=== PATIENT | male | born 1955 | race Caucasian/White ===

== ENCOUNTER → 2024-05-24 | Outpatient (CLI) | payer MEDICARE, BC, SELFPAY ==
[2024-05-24 10:18] LABS: Collection Type, Urine Clean Catch
[2024-05-24 11:30] LABS: Basophils # (Auto) 0.1 Thou/mm3 (0.0-0.2); Basophils % (Auto) 1 % (0-2.5); Eosinophils # (Auto) 0.5 Thou/mm3 (0.0-0.5); Eosinophils % (Auto) 6 % (0-10); Hematocrit 35.6 % (41.0-53.0); Hemoglobin 11.8 g/dL (13.5-16.0); Immature Granulocytes % (Auto) 0 % (0-0); Immature Granulocytes Auto 0.03 Thou/mm3 (0.00-0.00); Lymphocytes # (Auto) 3.3 Thou/mm3 (1.0-4.8); Lymphocytes % (Auto) 40 % (10-50); Mean Corpuscular HGB Conc 33.1 g/dl (31.0-37.0); Mean Corpuscular Hemoglobin 30.1 pg (25.0-35.0); Mean Corpuscular Volume 91 fL (80-100); Monocytes # (Auto) 0.8 Thou/mm3 (0.0-0.8); Monocytes % (Auto) 10 % (0-12); Neutrophils # (Auto) 3.6 Thou/mm3 (1.8-7.7); Neutrophils % (Auto) 44 % (37-80); Nucleated Red Blood Cell % 0 /100 WBC (0); Platelet Count 165 Thou/mm3 (140-440); RDW Standard Deviation 48.1 fL (35.1-43.9); Red Blood Count 3.92 Miln/mm3 (4.50-5.90); White Blood Count 8.4 Thou/mm3 (3.8-10.6)
[2024-05-24 11:37] LABS: PSA Medicare Annual Scrn 0.24 ng/mL (0-4.00)
[2024-05-24 11:43] LABS: Alanine Aminotransferase 14 U/L (10-49); Albumin, Serum 4.6 gm/dL (3.4-4.8); Albumin/Globulin Ratio 1.7 (1.2-2.2); Alkaline Phosphatase 96 U/L (46-116); Anion Gap 11 (7-16); Aspartate Amino Transferase < 10 U/L (0-34); BUN/Creatinine Ratio 28 Ratio (12-20); Bacteria,Urine Rare; Bilirubin,Total 0.7 mg/dL (0.3-1.2); Bilirubin,Urine Negative (Negative); Blood Urea Nitrogen 72 mg/dL (9-23); Blood,Urine Negative (Negative); Calcium 10.2 mg/dL (8.3-10.6); Calcium (Corrected) 10.2 mg/dL (8.5-10.1); Carbon Dioxide 20.5 mMol/L (20.0-31.0); Cardiac Risk Estimate 3.1 RATIO (4.0-6.7); Chloride 105 mMol/L (98-107); Cholesterol 129 mg/dL (132-200); Clarity,Urine Clear (Clear/Hazy); Color,Urine Lt-Yellow (Lt Yel-Yel); Creatinine (Component) 2.6 mg/dL (0.6-1.3); Globulin 2.7 gm/dL (2.3-3.5); Glucose 111 mg/dL (74-106); Glucose, Urine Negative (Negative); HDL Cholesterol 42 mg/dL (40-60); Hyaline Casts,Urine < 1 /hpf (0-1); Ketones,Urine Negative (Negative); LDL Cholesterol,Calculated 71 mg/dL (0-130); Leukocyte Esterase,Urine Negative (Negative); Nitrite,Urine Negative (Negative); Osmolality,Calculated 294 (275-295); Potassium 4.7 mMol/L (3.4-5.1); Protein,Urine Trace (Neg - Trace); RBC,Urine 3 /hpf (0-3); Sodium 136 mMol/L (136-145); Specific Gravity,Urine 1.014 (1.001-1.035); Squamous Epithelial Cell,Urine 1 /hpf (0-5); Total Protein 7.3 gm/dL (5.7-8.2); Triglycerides 82 mg/dL (30-150); Urobilinogen,Urine Negative mg/dL (0.0-1.0); Vitamin B12 1444 pg/mL (211-911); Vitamin D 25 Hydroxy Total 32.7 ng/mL (7.3-40.2); WBC,Urine 1 /hpf (0-5); eGFR 26 See Note
[2024-05-24 12:00] LABS: Glucose Estimated Average 120 mg/dL (80-131); Hemoglobin A1C 5.8 % Hgb (4.8-6.0)
== END | disposition home or self-care (01) ==
LOC: COPL 10:10
PROVIDERS: PCP Internal Medicine; Referring Provider Internal Medicine; Visit Provider Internal Medicine
DX: Z00.00 Encounter for general adult medical examination without abnormal findings (principal); I10 Essential (primary) hypertension; E78.5 Hyperlipidemia, unspecified
CPT/HCPCS: 36415; 80053; 80061; 81001; 82306; 82607; 83036; 84153; 84443; 84550; 85025; G0103

== ENCOUNTER → 2024-11-22 | Outpatient (CLI) | payer MEDICARE, BC, SELFPAY ==
[2024-11-22 11:56] LABS: Collection Type, Urine Clean Catch
[2024-11-22 12:27] LABS: Basophils # (Auto) 0.1 Thou/mm3 (0.0-0.2); Basophils % (Auto) 1 % (0-2.5); Eosinophils # (Auto) 0.4 Thou/mm3 (0.0-0.5); Eosinophils % (Auto) 4 % (0-10); Hematocrit 30.1 % (41.0-53.0); Hemoglobin 9.8 g/dL (13.5-16.0); Immature Granulocytes % (Auto) 0 % (0-0); Immature Granulocytes Auto 0.02 Thou/mm3 (0.00-0.00); Lymphocytes % (Auto) 50 % (10-50); Mean Corpuscular HGB Conc 32.6 g/dl (31.0-37.0); Mean Corpuscular Hemoglobin 29.9 pg (25.0-35.0); Mean Corpuscular Volume 92 fL (80-100); Monocytes # (Auto) 0.7 Thou/mm3 (0.0-0.8); Monocytes % (Auto) 9 % (0-12); Neutrophils # (Auto) 2.9 Thou/mm3 (1.8-7.7); Neutrophils % (Auto) 36 % (37-80); Nucleated Red Blood Cell % 0 /100 WBC (0); Platelet Count 187 Thou/mm3 (140-440); RDW Standard Deviation 47.6 fL (35.1-43.9); Red Blood Count 3.28 Miln/mm3 (4.50-5.90); White Blood Count 8.1 Thou/mm3 (3.8-10.6)
[2024-11-22 12:29] LABS: Bilirubin,Urine Negative (Negative); Blood,Urine 1+ (Negative); Clarity,Urine Clear (Clear/Hazy); Color,Urine Lt-Yellow (Lt Yel-Yel); Glucose, Urine Negative (Negative); Ketones,Urine Negative (Negative); Leukocyte Esterase,Urine Negative (Negative); Nitrite,Urine Negative (Negative); Protein,Urine 1+ (Neg - Trace); RBC,Urine 4 /hpf (0-3); Specific Gravity,Urine 1.016 (1.001-1.035); Squamous Epithelial Cell,Urine 2 /hpf (0-5); Urobilinogen,Urine Negative mg/dL (0.0-1.0); WBC,Urine < 1 /hpf (0-5)
[2024-11-22 12:41] LABS: Glucose Estimated Average 108 mg/dL (80-131); Hemoglobin A1C 5.4 % Hgb (4.8-6.0)
[2024-11-22 12:44] LABS: Alanine Aminotransferase 11 U/L (10-49); Albumin, Serum 4.1 gm/dL (3.4-4.8); Albumin/Globulin Ratio 1.6 (1.2-2.2); Alkaline Phosphatase 96 U/L (46-116); Anion Gap 10 (7-16); Aspartate Amino Transferase 15 U/L (0-34); BUN/Creatinine Ratio 18 Ratio (12-20); Bilirubin,Total 0.4 mg/dL (0.3-1.2); Blood Urea Nitrogen 46 mg/dL (9-23); Calcium 8.4 mg/dL (8.3-10.6); Calcium (Corrected) 8.4 mg/dL (8.5-10.1); Carbon Dioxide 20.3 mMol/L (20.0-31.0); Chloride 109 mMol/L (98-107); Cholesterol 108 mg/dL (132-200); Creatinine (Component) 2.6 mg/dL (0.6-1.3); Globulin 2.6 gm/dL (2.3-3.5); Glucose 94 mg/dL (74-106); HDL Cholesterol 36 mg/dL (40-60); LDL Cholesterol,Calculated 59 mg/dL (0-130); Osmolality,Calculated 289 (275-295); Potassium 5.2 mMol/L (3.4-5.1); Sodium 139 mMol/L (136-145); Thyroid Stimulating Hormone 3.38 uIU/mL (0.55-4.78); Total Protein 6.7 gm/dL (5.7-8.2); Triglycerides 66 mg/dL (30-150); Uric Acid 8.1 mg/dL (3.7-9.2); eGFR 26 See Note
[2024-11-22 13:00] LABS: Vitamin B12 895 pg/mL (211-911); Vitamin D 25 Hydroxy Total 31.4 ng/mL (7.3-40.2)
== END | disposition home or self-care (01) ==
PROVIDERS: PCP Internal Medicine; Referring Provider Internal Medicine; Visit Provider Internal Medicine
DX: Z00.00 Encounter for general adult medical examination without abnormal findings (principal); I10 Essential (primary) hypertension; E78.5 Hyperlipidemia, unspecified; D51.9 Vitamin B12 deficiency anemia, unspecified; E55.9 Vitamin D deficiency, unspecified; Z12.5 Encounter for screening for malignant neoplasm of prostate
CPT/HCPCS: 36415; 80053; 80061; 81001; 82306; 82607; 83036; 84153; 84443; 84550; 85025; G0103

== ENCOUNTER 2025-05-05 13:18 | Inpatient (IN) | payer MEDICARE, BC, SELFPAY ==
[2025-05-05] VITALS (34 sets, daily range): BP systolic 94–162; BP diastolic 28–76; PULSE 37–93; RESP 11–22; TEMP 31.1–36.6; O2SAT 97–100; BMI 40.6
--- NOTE | 2025-05-05 14:43 | XR_ITS ---
EXAMINATION: AP chest single view TECHNIQUE: Semiupright AP chest portable single view Date and time: May 05, 2025, 1511 hours, comparison November 14, 2023 INDICATIONS: Coughing fever today. FINDINGS: Early pneumonia left base obscuring detail left hemidiaphragm Mild enlargement cardiac contour Median sternotomy wires Moderate vascular congestion Prominent osteopenia IMPRESSION: Early pneumonia left base
--- NOTE | 2025-05-05 14:43 | EKG_ITS ---
[facility] Test Date: 2025-05-05 Pat Name: HAMILTON DELGADO Department: Room: - Gender: Male Clerk: : 1955 Requested By: Marek Fried Order Number: [id number] Reading MD: Marek Fried Measurements Intervals [place] Rate: 38 P: [place]: QRS: -40 QRSD: 144 T: 5 QT: 621 QTc: 496 Interpretive Statements UNCERTAIN REGULAR RHYTHM LEFT AXIS DEVIATION [QRS AXIS < -30] INTRAVENTRICULAR CONDUCTION DELAY [130+ ms QRS DURATION] PROLONGED QT INTERVAL CRITICAL TEST RESULT Compared to ECG 11/14/2023 12:40:02 Intraventricular conduction delay now present Prolonged QT interval now present Sinus rhythm no longer present First degree AV block no longer present T-wave abnormality no longer present /store/S0/[id number].pdf
[2025-05-05] MEDS: DEXTROSE 50%-WATER INJ 50 ML SYRINGE IVP ×2 (14:56→18:19)
[2025-05-05] MEDS: DEXTROSE 10%-WATER 1,000 ML 50 ML IV (15:07)
[2025-05-05 15:20] LABS: Basophils # (Auto) 0.0 Thou/mm3 (0.0-0.2); Basophils % (Auto) 1 % (0-2.5); Eosinophils # (Auto) 0.1 Thou/mm3 (0.0-0.5); Eosinophils % (Auto) 2 % (0-10); Hematocrit 33.1 % (41.0-53.0); Hemoglobin 10.3 g/dL (13.5-16.0); Immature Granulocytes Auto 0.11 Thou/mm3 (0.00-0.00); Lymphocytes # (Auto) 2.4 Thou/mm3 (1.0-4.8); Lymphocytes % (Auto) 34 % (10-50); Mean Corpuscular HGB Conc 31.1 g/dl (31.0-37.0); Mean Corpuscular Hemoglobin 30.9 pg (25.0-35.0); Mean Corpuscular Volume 99 fL (80-100); Monocytes # (Auto) 0.5 Thou/mm3 (0.0-0.8); Monocytes % (Auto) 7 % (0-12); Neutrophils # (Auto) 3.8 Thou/mm3 (1.8-7.7); Neutrophils % (Auto) 55 % (37-80); Nucleated Red Blood Cell # 0.04 Thou/mm3 (0.00-0.00); Nucleated Red Blood Cell % 1 /100 WBC (0); Platelet Count 82 Thou/mm3 (140-440); RDW Standard Deviation 59.3 fL (35.1-43.9); Red Blood Count 3.33 Miln/mm3 (4.50-5.90); White Blood Count 7.0 Thou/mm3 (3.8-10.6)
[2025-05-05 15:53] LABS: INR 1.2 (0.9-1.3); Prothrombin Time 12.2 Seconds (9.0-12.2)
--- NOTE | 2025-05-05 16:16 | EDNOTE_ITS ---
<Statement entered by Marek Montana MD - 05/10/25 16:12> As co-signing physician, I was present and available for consult prn. I concur with the plan and care as documented by the midlevel provider. ED General RME/HPI General Chief complaint: General Adult/Misc Complain Stated complaint: HYPOGLYCEMIA Time Seen by Provider: 05/05/25 13:53 Arrival date/time: 05/05/25 13:18 Limitations: no limitations RME / HPI RME / HPI narrative: 69 year old male with history of HFpEF (EF 55% 11/2023), atrial fibrillation on Eliquis, CAD s/p CABG, hypertension, diabetes, hyperlipidemia, CKD, DVT LLE, ischemic colitis s/p colostomy at [facility] presents to the ED BIBA from home for hypoglycemia today. Patient reports decreased oral intake and last night only had a handful of cranberries for dinner and did not eat breakfast this morning. Denies giving himself his insulin today. Per medics, BG on the field was 59 and given D10. Related Data Home Medications ?Medication ?Instructions ?Recorded ?Confirmed fexofenadine 180 mg tablet 180 mg PO QPM #0 tabs 03/2111/08/23 (Tonia Allergy) linagliptin 5 mg tablet (Tradjenta) 5 mg PO QPM ##0 11/08/23 coenzyme Q10 100 mg capsule 100 mg PO QPM 05/16/2001/23 (CoQ-10) febuxostat 40 mg tablet (Uloric) 40 mg PO QPM 05/16/20 11/08/23 insulin degludec 100 50 unit subcut QDAY 05/16/20 11/08/23 unit-liraglutide 3.6 mg/mL(3 mL) subcutaneous pen (Xultophy 100/3.6) amiodarone 200 mg tablet 200 mg PO DAILY 11/08/2301/23 cyclobenzaprine 5 mg tablet 5 mg PO QPM muscle spasms 11/08/23 11/08/23 ferrous sulfate 325 mg (65 mg 325 mg PO DAILY 11/08/23 11/08/23 iron) tablet Previous Rx's ?Medication ?Instructions ?Recorded cyclobenzaprine 5 mg tablet 5 mg PO TID PRN muscle spa sm #14 07/10/22 tabs apixaban 2.5 mg tablet (Eliquis) 5 mg (2 x 2.5 mg) PO BID #60 tabs 12/25/22 calcitriol 0.25 mcg capsule 0.5 mcg (2 x 0.25 mcg) PO QDAY #60 12/25/22 caps rosuvastatin 5 mg tablet 5 mg PO QPM #30 tabs 3 sacubitril 24 mg-valsartan 26 mg 1 tab PO BID #60 tabs 12/25/22 tablet (Entresto) Held on 11/15/23. Instructions: Resume on 11/29/23. hold until follow up with Dr. Vines vitamin B complex-vitamin C-folic 1 tab PO QDAY #30 ta bs 12/25/22 acid 0.8 mg tablet (Nephro-Yola) hydroxyzine HCl 25 mg tablet 25 mg PO BID #1 tab 09/01 sevelamer carbonate 800 mg tablet 800 mg PO TIDWM #1 t ab 09/02/23 amlodipine 5 mg tablet 5 mg PO QDAY #30 tabs Allergies Allergy/AdvReac Type Severity Reaction Status Date / Time fentanyl Allergy Intermediate Rash Verified 05/05/25 13:19 Review of Systems Review of Systems Systems Reviewed: All systems reviewed, normal except as documented Past Medical History Past Medical History CARDIAC: Positive Cardiac Disorders, Myocardial Infarction, Atrial Fibrillation, Coronary Artery Disease, Atherosclerotic Heart Disease, Hypercholesterolemia, Congestive Heart Failure and Hypertension RESPIRATORY: Positive Bronchitis and Pneumonia GASTROINTESTINAL: Positive Gastrointestinal Disorders, Gastrointestinal Bleed and Colitis GENITOURINARY: Positive Genitourinary Disorders and Renal Disease MUSCULOSKELETAL: Positive Musculoskeletal Disorders, Arthritis and Gout ENT: Positive Cataracts ENDOCRINE: Positive Endocrine Disorders and Diabetes Mellitus Type 2 HEMATOLOGIC: Positive Anemia and Clotting Problems (dvt lle) OTHER HISTORY: Positive Hospitalization, Falls, Blood Transfusions, Chicken Pox, Measles and Mumps Family History FAMILY HISTORY: Positive Family Cardiac Disorders Surgical History SURGICAL: Positive Cardiac Surgery, Open Heart Surgery, Coronary Artery Bypass Graft, Cardiac Catheterization, Angiogram, Tonsillectomy, Abdominal Surgery, Bowel Surgery (colectomy) and Amputation Social History SMOKING STATUS: Never smoker SECOND HAND EXPOSURE: No SUBSTANCE USE: does not use ED Exam General Limitations: Present no limitations General appearance: Present alert, in no apparent distress and obese Head Head exam: Present atraumatic Eye Eye exam: Present normal appearance, PERRL and EOMI ENT ENT exam: Present normal exam, normal oropharynx and mucous membranes moist Neck Neck exam: Present normal inspection, full ROM and trachea midline Chest Chest inspection: Present normal inspection and symmetric chest wall rise Respiratory Respiratory exam: Present normal lung sounds bilaterally Cardiovascular Cardiovascular exam: Present normal rhythm, bradycardia and other (distant heart sounds) Abdominal Exam Abdominal exam: Present soft and normal bowel sounds Extremities Exam Extremities exam: Present full ROM and other (2+ edema bilateral lower extremities, lerft anterior lower extremity with venuos dermatitis) Back Exam Back exam: Present normal inspection and full ROM Neurological Exam Neurological exam: Present alert, oriented X3 and CN II-XII intact Psychiatric Psychiatric exam: Present normal affect and normal mood Skin Skin exam: Present warm, dry, intact and normal color Course Quality Measures none Orders Category Date Time Status Admit to Inpatient Status Routine Admission 05/05/25 19:25 Active Patient Condition Routine Admission 05/05/25 19:24 Ordered COVID-19 Screening Questionnaire NOW Care 05/05/25 17:58 Active Saddle Stitch Operator NOW Care 05/05/25 14:43 Active Continuous Pulse Oximetry NOW Care 05/05/25 14:43 Completed Decision to Admit X1 Care 05/05/25 17:58 Completed EKG (ED ONLY) *Do not use* NOW Care 05/05/25 14:43 Completed Initiate Warming Therapy X1 Care 05/05/25 15:45 Active Insert IV NOW Care 05/05/25 14:43 Active Notify provider NEEDED Care 05/05/25 19:24 Active EKG (ED Only) Stat Exams 05/05/25 14:43 Draft XR chest 1V portable Stat Exams 05/05/25 14:43 Completed Blood Culture (Lab) Stat Lab 05/05/25 17:55 Received CBC AM DRAW Lab 05/06/25 04:35 Completed CBC AM DRAW Lab 05/07/25 05:00 Ordered CBC AM DRAW Lab 05/08/25 05:00 Ordered CBC AM DRAW Lab 05/09/25 05:00 Ordered CBC AM DRAW Lab 05/10/25 05:00 Ordered CBC Stat Lab 05/05/25 15:05 Completed COVID-19 Antigen (In-House) Stat Lab 05/05/25 19:19 Completed Comprehensive Metabolic Panel AM DRAW Lab 05/06/25 04:35 Completed Comprehensive Metabolic Panel AM DRAW Lab 05/07/25 05:00 Ordered Comprehensive Metabolic Panel AM DRAW Lab 05/08/25 05:00 Ordered Comprehensive Metabolic Panel AM DRAW Lab 05/09/25 05:00 Ordered Comprehensive Metabolic Panel AM DRAW Lab 05/10/25 05:00 Ordered Comprehensive Metabolic Panel Stat Lab 05/05/25 16:52 Completed Lactic Acid [Lactate (Lactic Acid)] Stat Lab 05/05/25 17:55 Completed Lipid Panel AM DRAW Lab 05/06/25 04:35 Completed Magnesium AM DRAW Lab 05/06/25 04:35 Completed Prothrombin Time with INR Stat Lab 05/05/25 15:05 Completed Renal Function Panel Stat Lab 05/05/25 20:37 Completed Troponin I Stat Lab 05/05/25 16:52 Completed Urinalysis Stat Lab 05/05/25 20:26 Completed VBG [Venous Blood Gas] Stat Lab 05/05/25 20:37 Completed ALBUTEROL RT 0.5ml [Proventil Rt 0.5ml] Med 05/05/25 18:08 Discontinued 10 mg INH X1 ONE ALBUTEROL RT 0.5ml [Proventil Rt 0.5ml] Med 05/05/25 17:27 Discontinued 5 mg INH X1 ONE Acetaminophen Supp [Tylenol Supp] Med 05/05/25 19:24 Discontinued 650 mg MO Q6HR PRN Acetaminophen Tab [Tylenol Tab] Med 05/05/25 19:24 Active 650 mg PO Q6H PRN Amiodarone [Cordarone] Med 05/06/25 09:00 Active 200 mg PO DAILY Apixaban [Eliquis] Med 05/06/25 09:00 Discontinued 2.5 mg PO BID Calcium Chloride 10% Abboject 10 ml Med 05/05/25 17:22 Discontinued Dextrose 5%-Water [D5w] 100 ml IV X1 Dextrose 10%-Water 1000 ml [D10w 1000 ml] 1,000 ml Med 05/05/25 14:50 Discontinued IV 50 mls/hr Dextrose 10%-Water [D10w] 1,000 ml Med 05/05/25 15:15 Discontinued IV 50 mls/hr Dextrose 50% Syr [D50w Syringe Abboject] Med 05/05/25 14:49 Discontinued 50 ml IVP X1 ONE Dextrose 50% Syr [D50w Syringe Abboject] Med 05/05/25 17:22 Discontinued 50 ml IVP X1 ONE Doxycycline Inj [Vibramycin Inj] 100 mg Med 05/05/25 21:00 Discontinued Sodium Chloride 0.9% (Pop) [NS 0.9% mini bag] 100 ml IV BID Insulin Regular Med 05/05/25 17:22 Discontinued 8 unit IV X1 ONE Sod Polystyrene Sulfon Susp [Kayexalate Susp] Med 05/05/25 18:08 Discontinued 15 gm PO X1 ONE Sodium Bicarb 8.4% 50ml Vial* Med 05/05/25 17:22 Discontinued 50 meq IV X1 ONE Sodium Chloride Rt Apryl 0.9% [NS Rt Apryl 0.9%] Med 05/05/25 17:27 Discontinued 3 ml INH PRN PRN Sodium Chloride Rt Apryl 0.9% [NS Rt Apryl 0.9%] Med 05/05/25 18:08 Active 3 ml INH PRN PRN amLODIPine BESYLATE [Norvasc] Med 05/06/25 09:00 Active 5 mg PO DAILY cefTRIAXone [Rocephin] 2 gm Med 05/05/25 17:27 Discontinued SODIUM CHLORIDE 0.9% (Popper) [Ns 0.9% (P)] 50 ml IV X1 Code Status Routine Oth 05/05/25 19:24 Ordered Vital Signs Vital signs: Vital Signs Pulse Rate 40 L 05/05/25 13:37 Respiratory Rate 12 05/05/25 13:37 Blood Pressure 162/70 H 05/05/25 13:37 Pulse Oximetry (%) 98 05/05/25 13:37 Pulse ox is 100% on room air which is adequate. Critical Care Time Critical Care Time Critical Care Time: Yes Total Critical Care Time (min.): 45 Attestation: The high probability of sudden, clinically significant deterioration in the patient's condition required the highest level of my preparedness to intervene urgently. The services I provided to this patient were to treat and/or prevent clinically significant deterioration. Services included the following: chart data review, reviewing nursing notes and/or old charts, documentation time, market research consultant collaboration regarding findings and treatment options, medication orders and management, direct patient care, vital sign assessments and ordering, interpreting and reviewing diagnostic studies and lab tests. Aggregate critical care time includes only time during which I was engaged in work directly related to the patient's care, as described above, whether at bedside or elsewhere in the Emergency Department. It did not include time spent performing other reported procedures or the services of residents, students, nurses or physician assistants. Discharge Plan Plan Patient Disposition: Admit Acute Care w/in Hospital Problem List Clinical Impression: Hypoglycemia, Diabetes, Pneumonia, Acute hyperkalemia, History of chronic renal failure MDM Narrative MDM hospital course (for use when minimal MDM required): I, Aparna Mancilla, am scribing for and in the presence of Dr. Montana. A sepsis alert was not activated, there is no source of infection. The hypothermia is most likely due to the hypoglycemia. 1735p: I spoke with hospitalist team for admission. Discussed patients PMHx, HPI, ED course, exam findings, labs, and radiology results. Advised we consult with patients PCP Dr. Vines for admission. 1740p: I spoke with patients PCP Dr. Vines. Discussed patients PMHx, HPI, ED course, exam findings, labs, and radiology results. She accepts the patient for admission. 1745p: Dr. Vines recommending admission to the ICU. States she has consulted with safety and security officer Dr. Ta. Clinical Information Provided by: patient Medical Records reviewed [facility] Meds/Rx considered, not ordered None Labs/Rad/Tests considered, not ordered None Chronic Illness/Social Conditions which may negatively complicate care or outcome(s)-explain: CHF/CAD/Cardiac illness EKG Interpretation EKG #1: EKG Interpretation: EKG @ 14:58p, sinus bradycardia with first degree AV block, left axis deviation, no STEMI. Labs Lab(s) Interpretation(s): Potassium 6.9 Imaging Imaging Interpretation(s): Ordering Physician: Marek Montana MD Date of Service: 05/05/25 Procedure(s): XR chest 1V portable Accession Number(s): [id number] cc: Marek Montana MD; Steven Glover MD~ EXAMINATION: AP chest single view TECHNIQUE: Semiupright AP chest portable single view Date and time: May 05, 2025, 1511 hours, comparison November 14, 2023 INDICATIONS: Coughing fever today. FINDINGS: Early pneumonia left base obscuring detail left hemidiaphragm Mild enlargement cardiac contour Median sternotomy wires Moderate vascular congestion Prominent osteopenia IMPRESSION: Early pneumonia left base Dictated By: Steven Glover MD Signed By: <Electronically signed by Steven Glover MD in OV> 05/05/25 1536 Medication Administration(s) Medication Administration History Acetaminophen (Acetaminophen 325 Mg Tablet) 650 mg PO Q6H PRN PRN Reason: Fever >101.5 Stop: 06/04/25 19:23 Amiodarone HCl (Amiodarone Hcl 200 Mg Tablet) 200 mg PO DAILY CINDI Stop: 06/05/25 08:59 Last Admin: 05/06/25 08:43 Dose: 200 mg Documented By: MGD Amlodipine Besylate (Amlodipine Besylate 5 Mg Tablet) 5 mg PO DAILY CINDI Stop: 06/05/25 08:59 Last Admin: 05/06/25 08:46 Dose: 5 mg Documented By: MGD Atorvastatin Calcium (Atorvastatin Calcium 10 Mg Tablet) 10 mg PO HS CINDI Stop: 06/05/25 20:59 Balsam Madhuri/Mentone Oil (Balsam Madhuri/Mentone Oil (Venelex) 60 Gm Tube) 0 gm TOP BID CINDI Stop: 06/05/25 09:59 Calcitriol (Calcitriol 0.25 Mcg Capsule) 0.5 mcg PO QDAY CINDI Stop: 06/05/25 08:59 Last Admin: 05/06/25 08:48 Dose: 0.5 mcg Documented By: MGD Clotrimazole (Clotrimazole Cr 1% 30 Gm Tube) 0 gm TOP BID CINDI Stop: 06/05/25 09:59 Ferrous Sulfate (Ferrous Sulf 325 Mg Tablet) 325 mg PO QDAY CINDI Stop: 06/05/25 08:59 Last Admin: 05/06/25 08:43 Dose: 325 mg Documented By: MGD Heparin Sodium (Porcine) (Heparin Sod Inj 5000 Unit/Ml Vial) 5,000 unit SC Q8HR CINDI Stop: 05/20/25 13:59 Ceftriaxone Sodium/Dextrose (Rocephin/D5w 1gm Iv Premix) 1 gm in 50 mls @ 100 mls/hr IV QDAY CINDI Stop: 05/13/25 09:34 Last Admin: 05/06/25 09:52 Dose: 100 mls/hr Documented By: MGD Influenza Virus Vaccine Quadrival (Influenza Virus 0.5 Ml Syringe ) 0.5 ml IMi .ONCE ONE Stop: 05/08/25 09:01 Sevelamer Carbonate (Sevelamer Carbonate 800 Mg Tablet) 800 mg PO TIDWM [facility] Stop: 06/05/25 07:59 Last Admin: 05/06/25 13:40 Dose: 800 mg Documented By: Admin: 05/06/25 08:43 Dose: 800 mg Documented By: PIO Sodium Chloride (Sodium Chloride Rt Apryl 0.9% 3 Ml Nebu) 3 ml INH PRN PRN PRN Reason: SOLN Stop: 06/04/25 18:07 Last Admin: 05/06/25 06:47 Dose: 3 ml Documented By: LUCERO Vitamin B Complex/Vit C/Folic Acid (Vit B12/Vit C/Fa (Nephrovite) Tablet) 1 tab PO QDAY [facility] Stop: 06/05/25 08:59 Last Admin: 05/06/25 08:43 Dose: 1 tab Documented By: PIO Discontinued Medications Acetaminophen (Acetaminophen Supp 650 Mg Supp) 650 mg MO Q6HR PRN PRN Reason: Fever > 100.4 Stop: 06/04/25 19:23 Albuterol (Albuterol Rt 2.5 Mg/0.5 Ml Nebu) 5 mg INH X1 ONE Stop: 05/05/25 17:28 Last Admin: 05/05/25 18:07 Dose: 5 mg Documented By: JENNIFER Albuterol (Albuterol Rt 2.5 Mg/0.5 Ml Nebu) 10 mg INH X1 ONE Stop: 05/05/25 18:09 Last Admin: 05/05/25 18:57 Dose: 10 mg Documented By: JENNIFER Albuterol (Albuterol Rt 2.5 Mg/3 Ml Nebu) 10 mg INH X1 ONE Stop: 05/06/25 06:16 Albuterol (Albuterol Rt 2.5 Mg/0.5 Ml Nebu) 10 mg INH X1 ONE Stop: 05/06/25 06:41 Last Admin: 05/06/25 06:47 Dose: 10 mg Documented By: LUCERO Apixaban (Apixaban 2.5 Mg Tablet) 2.5 mg PO BID [facility] Stop: 06/05/25 08:59 Dextrose (Dextrose 50%-Water Inj 50 Ml Syringe) 50 ml IVP X1 ONE Stop: 05/05/25 14:50 Last Admin: 05/05/25 14:56 Dose: 50 ml Documented By: ANN Dextrose (Dextrose 50%-Water Inj 50 Ml Syringe) 50 ml IVP X1 ONE Stop: 05/05/25 17:23 Last Admin: 05/05/25 18:19 Dose: 50 ml Documented By: FORTINO Dextrose (Dextrose 50%-Water Inj 50 Ml Syringe) 50 ml IVP X1 ONE Stop: 05/06/25 06:22 Last Admin: 05/06/25 07:45 Dose: 50 ml Documented By: MGEdinson Dextrose (Dextrose 50%-Water Inj 50 Ml Syringe) 50 ml IVP X1 ONE Stop: 05/06/25 06:23 Dextrose (Dextrose 50%-Water Inj 50 Ml Syringe) 50 ml IVP X1 ONE Stop: 05/06/25 07:32 Last Admin: 05/06/25 07:50 Dose: 50 ml Documented By: PIO Hydrocortisone Sodium Succinate (Hydrocortisone Sod Succ Inj 100 Mg 2 Ml Vial) 200 mg IV X1 ONE Stop: 05/05/25 22:29 Last Admin: 05/05/25 23:17 Dose: 200 mg Documented By: ESTEPHANIA Hydrocortisone Sodium Succinate (Hydrocortisone Sod Succ Inj 100 Mg 2 Ml Vial) 100 mg IV Q6HR CINDI Stop: 06/05/25 04:59 Last Admin: 05/06/25 05:41 Dose: Not Given Documented By: ESTEPHANIA Non-Admin Reason: Duplicate Medication on eMAR Admin: 05/06/25 05:39 Dose: 100 mg Documented By: ESTEPHANIA Dextrose (D10w 1000 Ml) 1,000 mls @ 50 mls/hr IV .Q20H CINDI Stop: 05/06/25 10:49 Last Admin: 05/05/25 15:55 Dose: Not Given Documented By: FORTINO Non-Admin Reason: Discontinued Dextrose (D10w) 1,000 mls @ 50 mls/hr IV .Q20H CINDI Stop: 05/06/25 11:14 Last Admin: 05/05/25 15:07 Dose: 50 mls/hr Documented By: AA Co-signed By: GM Calcium Chloride 10 ml/ (Dextrose) 110 mls @ 110 mls/hr IV X1 ONE Stop: 05/05/25 18:21 Last Infusion: 05/05/25 19:15 Dose: Infused Documented By: MARIA D Admin: 05/05/25 18:16 Dose: 110 mls/hr Documented By: FORTINO Ceftriaxone Sodium 2 gm/ (Sodium Chloride) 50 mls @ 100 mls/hr IV X1 ONE Stop: 05/05/25 17:56 Last Infusion: 05/05/25 18:58 Dose: Infused Documented By: MARIA D Admin: 05/05/25 18:23 Dose: 100 mls/hr Documented By: FORTINO Doxycycline Hyclate 100 mg/ (Sodium Chloride) 100 mls @ 100 mls/hr IV BID [facility] Stop: 05/12/25 20:59 Last Infusion: 05/05/25 21:10 Dose: Infused Documented By: Admin: 05/05/25 20:08 Dose: 100 mls/hr Documented By: MARI AD Dextrose (D10w) 1,000 mls @ 75 mls/hr IV .[id number] [facility] Stop: 05/06/25 11:47 Last Admin: 05/05/25 23:27 Dose: 75 mls/hr Documented By: ESTEPHANIA Co-signed By: FUENTES Ceftriaxone Sodium/Dextrose (Rocephin/D5w 1gm Iv Premix) 1 gm in 50 mls @ 100 mls/hr IV QDAY [facility] Stop: 05/12/25 22:45 Last Admin: 05/06/25 04:27 Dose: Not Given Documented By: ESTEPHANIA Non-Admin Reason: Discontinued Dextrose (D5w) 500 mls @ 150 mls/hr IV .Q3H20M [facility] Stop: 06/05/25 02:59 Last Admin: 05/06/25 04:25 Dose: Not Given Documented By: ESTEPHANIA Non-Admin Reason: Discontinued Dextrose (D5w) 500 mls @ 125 mls/hr IV .Q4H [facility] Stop: 06/05/25 03:03 Last Admin: 05/06/25 03:05 Dose: 125 mls/hr Documented By: ESTEPHANIA Calcium Gluconate/Sodium Chloride (Calcium Gluc/Ns 1000mg Ivpb) 1,000 mg in 50 mls @ 50 mls/hr IV X1 ONE Stop: 05/06/25 09:17 Last Admin: 05/06/25 08:30 Dose: 50 mls/hr Documented By: PIO Insulin Human Regular (Insulin Hum Regular 1 Unit/0.01 Ml (Per Unit)) 8 unit IV X1 ONE Stop: 05/05/25 17:23 Last Admin: 05/05/25 18:20 Dose: 8 unit Documented By: FORTINO Co-signed By: NELIDA Insulin Human Regular (Insulin Hum Regular 1 Unit/0.01 Ml (Per Unit)) 5 unit IV X1 ONE Stop: 05/06/25 06:16 Last Admin: 05/06/25 07:40 Dose: 5 unit Documented By: MGEdinson Co-signed By: PIO(2) Insulin Human Regular (Insulin Hum Regular 1 Unit/0.01 Ml (Per Unit)) 5 unit IV X1 ONE Stop: 05/06/25 10:00 Last Admin: 05/06/25 10:25 Dose: 5 unit Documented By: MGEdinson Co-signed By: DIANA Patiromer (Patiromer Calcium 8.4 Gm Packet) 8.4 gm PO X1 ONE Stop: 05/06/25 06:16 Last Admin: 05/06/25 08:56 Dose: 8.4 gm Documented By: MGEdinson Sodium Bicarbonate (Sodium Bicarb Inj 8.4% 1 Meq/Ml 50 Ml Vial) 50 meq IV X1 ONE Stop: 05/05/25 17:23 Last Admin: 05/05/25 18:19 Dose: 50 meq Documented By: FORTINO Sodium Chloride (Sodium Chloride Rt Apryl 0.9% 3 Ml Nebu) 3 ml INH PRN PRN PRN Reason: SOLN Stop: 06/04/25 17:26 Last Admin: 05/05/25 18:57 Dose: 3 ml Documented By: JENNIFER Sodium Chloride (Sodium Chloride Rt 10% 15 Ml Nebu) 5 ml INH X1 ONE Stop: 05/06/25 00:03 Last Admin: 05/06/25 01:04 Dose: 5 ml Documented By: REDDY Sodium Polystyrene Sulfonate (Sod Polystyrene Sulfon Susp 15 Gm/60 Ml Btl) 15 gm PO X1 ONE Stop: 05/05/25 18:09 Last Admin: 05/05/25 18:28 Dose: 15 gm Documented By: FORTINO Sodium Polystyrene Sulfonate (Sod Polystyrene Sulfon Susp 15 Gm/60 Ml Btl) 30 gm PO X1 ONE Stop: 05/06/25 06:22 Last Admin: 05/06/25 07:46 Dose: 30 gm Documented By: MGD Sodium Polystyrene Sulfonate (Sod Polystyrene Sulfon Susp 15 Gm/60 Ml Btl) 15 gm PO X1 ONE Stop: 05/06/25 07:42 Last Admin: 05/06/25 07:49 Dose: 15 gm Documented By: MGEdinson See above Diagnosis Diagnoses ruled out and/or further discussions: Acute hypoglycemia Diabetes Pneumonia Bradycardia Hyperkalemia H/O chronic renal failure
--- NOTE | 2025-05-05 16:32 | PC.NURSE ---
LATE NOTE: DR. CALDERON MADE AWARE OF PT LOW HEART RATE AND PT MEETING SEPSIS CRITERIA, PER DR. CALDERON PT DOES NOT MEET SEPSIS CRITERIA AND NO NEW ORDERS FOR PT LOW HEART RATE SINCE PT HAS A HISTORY OF BRADYCARDIA.
--- NOTE | 2025-05-05 17:17 | PC.NURSE ---
Late Note: Lab called to notified this nurse that this Pt K 6.7 but the blood that was drawn is a little hemolysis Dr. Montana made aware. Per Dr. Montana Pt was to get re-draw, and Lab was made aware.
[2025-05-05 17:44] LABS: Alanine Aminotransferase 53 U/L (10-49); Albumin, Serum 3.9 gm/dL (3.4-4.8); Albumin/Globulin Ratio 1.6 (1.2-2.2); Alkaline Phosphatase 84 U/L (46-116); Anion Gap 9 (7-16); Aspartate Amino Transferase 51 U/L (0-34); BUN/Creatinine Ratio 22 Ratio (12-20); Bilirubin,Total 0.4 mg/dL (0.3-1.2); Blood Urea Nitrogen 65 mg/dL (9-23); Calcium 8.9 mg/dL (8.3-10.6); Calcium (Corrected) 9.0 mg/dL (8.5-10.1); Carbon Dioxide 19.3 mMol/L (20.0-31.0); Chloride 117 mMol/L (98-107); Creatinine (Component) 2.9 mg/dL (0.6-1.3); Estimated Creatinine Clearance 33.4 mL/min (>60); Globulin 2.5 gm/dL (2.3-3.5); Glucose 85 mg/dL (74-106); Osmolality,Calculated 306 (275-295); Sodium 145 mMol/L (136-145); Total Protein 6.4 gm/dL (5.7-8.2); Troponin I < 0.020 ng/mL (0.0-0.045); eGFR 22 See Note
[2025-05-05 17:46] LABS: Potassium 6.8 mMol/L (3.4-5.1)
[2025-05-05] MEDS: ALBUTEROL RT 2.5 MG/0.5 ML NEBU 5 MG INH (18:07)
[2025-05-05] MEDS: Calcium Chloride 10% Abboject 10 ML in DEXTROSE 5%-WATER 100 ML 110 ML IV (18:16)
[2025-05-05 18:19] LABS: Lactate (Lactic Acid) 1.1 mMol/L (0.4-2.0)
[2025-05-05] MEDS: SODIUM BICARB INJ 8.4% 1 mEq/ML 50 ML VIAL 50 MEQ IV (18:19)
[2025-05-05] MEDS: INSULIN HUM REGULAR 1 UNIT/0.01 ML (PER UNIT) 8 UNIT IV (18:20)
[2025-05-05] MEDS: cefTRIAXone 2 GM in SODIUM CHLORIDE 0.9% (Popper) 50 ML IV (18:23)
[2025-05-05] MEDS: SOD POLYSTYRENE SULFON SUSP 15 GM/60 ML BTL PO (18:28)
[2025-05-05] MEDS: ALBUTEROL RT 2.5 MG/0.5 ML NEBU 10 MG INH (18:57)
[2025-05-05] MEDS: SODIUM CHLORIDE RT SOL 0.9% 3 ML NEBU INH (18:57)
--- NOTE | 2025-05-05 19:37 | ESHP_ITS ---
<Statement entered by Dean Gastelum MD - 05/10/25 02:32> I have personally seen and examined the patient, agree with residents assessment and plan Patient plan of care was discussed with the attending physician, Dr. Sravanthi Gastelum, PGY2 Documentation for date of: 05/05/25 HPI History of Present Illness History of present illness: HPI: 69-year-old male past medical history of heart failure preserved ejection fraction, A-fib, CAD status post CABG in 2018, DVT LLE, ischemic colitis s/p colostomy at [facility], insulin-dependent diabetes presented to the ED around 12 PM on 05/05/2025 with hypoglycemia and hypothermia. Per the patient he took insulin before breakfast the morning of presentation and went to the restroom where he fell and his called the ambulance. He denied losing consciousness. He was found to have a glucose of 40, a temperature of 88, and potassium at 6.8. He was put on a Terry hugger and received calcium chloride and dextrose with 8 units of insulin. Patient was admitted for hypoglycemia, hypothermia, and hyperkalemia. ED Course: * Significant vitals on arrival: Temp 88, heart rate 38, BP 162/70 * Significant labs: Glucose of 40, temp 88, potassium 6.8, chloride 117, bicarb 19.3, BUN 65, creatinine 2.9, osmolality 306, AST 51, ALT 53 * Imaging: Chest x-ray showed early pneumonia left base, EKG showed bradycardia rate of [address] segment changes * ED intervention: Terry hugger, Patient received dextrose, albuterol 15 mg, calcium chloride 10 mg, 50 mill EQ of sodium bicarb, 8 units of insulin, 2 g ceftriaxone, sodium polystyrene sulfonate 15 GM p.o. x 1 History: * Past medical history: As above in HPI * Surgical history: CABG in 2018, appendectomy in the 1980s * Social history: Lives at home, denies alcohol tobacco or illicit drug use Allergies: * Fentanyl Home Medications: * Amiodarone 200 mg daily * Amlodipine 5 mg daily * Calcitriol 0.5 mcg * Coenzyme Q 1000 mg * Cyclobenzaprine 5 mg 3 times daily as needed * Eliquis 2.5 mg p.o. twice daily * Entresto p.o. twice daily * Febuxostat 40 mg daily * Ferrous sulfate * Hydroxyzine 25 mg p.o. twice daily * Nephro-Yola * Rosuvastatin 5 mg p.o. nightly * Sevelamer 800 mg 3 times daily with meals * Tradjenta 5 mg nightly * Xultphy subcutaneous daily CODE STATUS: Full code Review of Systems Review of Systems Narrative Review of Systems: Review of Systems: * General: Denies fevers, chills. * HEENT: Denies headache, congestion, or sore throat. * Cardiac: Denies chest pain or palpitations. * Pulmonary: Denies shortness of breath or cough. * GI: Denies nausea, vomiting, diarrhea, constipation, melena, or hematochezia. * : Denies dysuria, hematuria, frequency, or urgency. * MSK: Denies pain in the extremities, joints, or myalgias. * Neuro: Denies weakness, numbness, vision changes, or speech difficulty. Exam Vital Signs Temp Pulse Resp BP Pulse Ox O2 Del Method 91.4 F L 59 L 16 116/50 L 100 Room Air 05/05/25 19:00 05/05/25 19:00 05/05/25 19:00 05/05/25 19:00 05/05/25 19:00 05/05/25 16:01 Narrative Exam General: Obese man. Awake and in no acute distress. Conversational and non- toxic appearing. Neurologic: GCS 15. Alert and oriented x3, no gross neurological deficit, and patient able to move all 4 extremities. HEENT: Normocephalic, atraumatic, mucous membranes moist. Pupils reactive to light. Heart: Regular rate and rhythm, normal S1 and S2, no murmurs. Lungs: Clear to auscultation bilaterally with no wheezing or crackles. Abdomen: Obese, colostomy bag in place draining green fluid. Extremities: Edema left anterior lower leg from previous episode of cellulitis, 1+ bilateral pitting edema lower extremities. 2+ radial and dorsalis pedis pulses bilaterally. Skin: Warm. Dry. No rash or ecchymoses. Results: Labs 05/07/25 04:24 05/07/25 04:24 Labs: Short CBC 05/05/25 Range/Units 15:05 WBC 7.0 (3.8-10.6) Thou/mm3 Hgb 10.3 L (13.5-16.0) g/dL Hct 33.1 L (41.0-53.0) % Plt Count 82 L (140-440) Thou/mm3 BMP 05/05/25 16:52 Sodium 145 Potassium 6.8 H* Chloride 117 H Carbon Dioxide 19.3 L BUN 65 H Creatinine 2.9 H Glucose 85 Calcium 8.9 Cardiac Enzymes 05/05/25 Range/Units 16:52 Troponin I < 0.020 (0.0-0.045) ng/mL Liver Function 05/05/25 Range/Units 16:52 Total Bilirubin 0.4 (0.3-1.2) mg/dL AST 51 H (0-34) U/L ALT 53 H (10-49) U/L Alkaline Phosphatase 84 (46-116) U/L Albumin 3.9 (3.4-4.8) gm/dL Quality Measures Quality Measures VTE prophylaxis Advance care planning discussed with:: patient Medications Home Medications and Allergies Home Medications ?Medication ?Instructions ?Recorded ?Confirmed ?Type fexofenadine 180 mg tablet 180 mg PO QPM #0 tabs 03/2111/08/23 History (Tonia Allergy) linagliptin 5 mg tablet (Tradjenta) 5 mg PO QPM ##0 11/08/23 History coenzyme Q10 100 mg capsule 100 mg PO QPM 05/16/2001/23 History (CoQ-10) febuxostat 40 mg tablet (Uloric) 40 mg PO QPM 05/16/20 11/08/23 History insulin degludec 100 50 unit subcut QDAY 05/16/20 11/08/23 History unit-liraglutide 3.6 mg/mL(3 mL) subcutaneous pen (Xultophy 100/3.6) amiodarone 200 mg tablet 200 mg PO DAILY 11/08/2301/23 History cyclobenzaprine 5 mg tablet 5 mg PO QPM muscle spasms 11/08/23 11/08/23 History ferrous sulfate 325 mg (65 mg 325 mg PO DAILY 11/08/23 11/08/23 History iron) tablet Allergies Allergy/AdvReac Type Severity Reaction Status Date / Time fentanyl Allergy Intermediate Rash Verified 05/05/25 13:19 Visit Medications Acetaminophen (Acetaminophen 325 Mg Tablet) 650 mg PO Q6H PRN PRN Reason: Fever >101.5 Stop: 06/04/25 19:23 Enoxaparin Sodium (Enoxaparin Sod Inj 40 Mg/0.4 Ml Syringe) 40 mg SC QDAY [facility] Stop: 05/20/25 08:59 Dextrose (D10w) 1,000 mls @ 50 mls/hr IV .Q20H [facility] Stop: 05/06/25 11:14 Last Admin: 05/05/25 15:07 Dose: 50 mls/hr Doxycycline Hyclate 100 mg/ (Sodium Chloride) 100 mls @ 100 mls/hr IV BID [facility] Stop: 05/12/25 20:59 Sodium Chloride (Sodium Chloride Rt Apryl 0.9% 3 Ml Nebu) 3 ml INH PRN PRN PRN Reason: SOLN Stop: 06/04/25 17:26 Last Admin: 05/05/25 18:57 Dose: 3 ml Sodium Chloride (Sodium Chloride Rt Apryl 0.9% 3 Ml Nebu) 3 ml INH PRN PRN PRN Reason: SOLN Stop: 06/04/25 18:07 Discontinued Medications Acetaminophen (Acetaminophen Supp 650 Mg Supp) 650 mg NM Q6HR PRN PRN Reason: Fever > 100.4 Stop: 06/04/25 19:23 Albuterol (Albuterol Rt 2.5 Mg/0.5 Ml Nebu) 5 mg INH X1 ONE Stop: 05/05/25 17:28 Last Admin: 05/05/25 18:07 Dose: 5 mg Albuterol (Albuterol Rt 2.5 Mg/0.5 Ml Nebu) 10 mg INH X1 ONE Stop: 05/05/25 18:09 Last Admin: 05/05/25 18:57 Dose: 10 mg Dextrose (Dextrose 50%-Water Inj 50 Ml Syringe) 50 ml IVP X1 ONE Stop: 05/05/25 14:50 Last Admin: 05/05/25 14:56 Dose: 50 ml Dextrose (Dextrose 50%-Water Inj 50 Ml Syringe) 50 ml IVP X1 ONE Stop: 05/05/25 17:23 Last Admin: 05/05/25 18:19 Dose: 50 ml Dextrose (D10w 1000 Ml) 1,000 mls @ 50 mls/hr IV .Q20H [facility] Stop: 05/06/25 10:49 Last Admin: 05/05/25 15:55 Dose: Not Given Calcium Chloride 10 ml/ (Dextrose) 110 mls @ 110 mls/hr IV X1 ONE Stop: 05/05/25 18:21 Last Infusion: 05/05/25 19:15 Dose: Infused Ceftriaxone Sodium 2 gm/ (Sodium Chloride) 50 mls @ 100 mls/hr IV X1 ONE Stop: 05/05/25 17:56 Last Infusion: 05/05/25 18:58 Dose: Infused Insulin Human Regular (Insulin Hum Regular 1 Unit/0.01 Ml (Per Unit)) 8 unit IV X1 ONE Stop: 05/05/25 17:23 Last Admin: 05/05/25 18:20 Dose: 8 unit Sodium Bicarbonate (Sodium Bicarb Inj 8.4% 1 Meq/Ml 50 Ml Vial) 50 meq IV X1 ONE Stop: 05/05/25 17:23 Last Admin: 05/05/25 18:19 Dose: 50 meq Sodium Polystyrene Sulfonate (Sod Polystyrene Sulfon Susp 15 Gm/60 Ml Btl) 15 gm PO X1 ONE Stop: 05/05/25 18:09 Last Admin: 05/05/25 18:28 Dose: 15 gm Assessment & Plan Plan Summary: 69-year-old male past medical history of heart failure preserved ejection fraction, A-fib, CAD status post CABG in 2018, DVT LLE, ischemic colitis s/p colostomy at [facility], insulin-dependent diabetes presented to the ED around 12 PM on 05/05/2025 with hypoglycemia and hypothermia. He was found to have a glucose of 40, a temperature of 88, and potassium at 6.8. He was put on a Terry hugger and received calcium chloride and dextrose with 8 units of insulin. Patient was admitted for hypoglycemia, hypothermia, and hyperkalemia. #Acute encephalopathy Per patient's , patient appeared to be spacey and lethargic, now improved but still at risk for encephalopathy from hypoglycemia, hypothermia, and possible sepsis, but less likely -Monitor neuro checks -Assess for any toxic/metabolic encephalopathy (review medications, insulin doses, possible narcotics or sedatives) -Continue active rewarming with Terry hugger until normothermic -Consider CT head imaging if mental status worsens #Hypothermia T = 88?F on arrival Likely multifactorial: possible sepsis, hypoglycemia, environmental exposure unclear. -Active rewarming with Terry Hugger -Serial temperature checks q1?2h -Evaluated for infectious source, currently no source found #Severe recurrent hypoglycemia #Hyperkalemia Patient presented with a BG of 59 at home, and 40 upon arrival in the ED. Despite D10 at 50 mL/hr and oral intake, patient's glucose continues to be in the mid 70s Initially improved to BG as high as 123, however after switching to D5w d/t increasing osmolality, patient's glucose now 82 on AM labs Patient took 50 units of xultophy (Degludec + GLP-1) the night prior, which is daily routine Patient denies having a poor oral intake, as lives with him at home Patient also takes home Tradjenta, however, patient's spouse didn't mention patient taking this medication last night -Glucose checks Q1HR -Downtitrate D5 gtt once BG can be maintained to goal of 70-130 fasting, and 140-180, hospital target goal after eating, however, continues to decrease despite being on gtt -Will hold off on long acting and short acting insulin -D/t how sudden patient's hypoglycemia was, will start with hydrocortisone 200 x 1 followed with 100mg Q6HR for stress response (less likely to be adrenal insufficency d/t BP being stable) -Consider D50 push PRN for acute drops -Continue to check temperature to normal with Terry hugger -After patient regains normal BG level and normothermic, patient would benefit from a nutrition consult and a decrease in his current insulin requirements prior to discharge #Insulin-dependent diabetes * Correcting hypoglycemia Plan: * Will institute insulin sliding scale once able #Hypertension stage II * Per patient history * Presented with BP 162/70 Plan: * Restarted home amlodipine 5 mg daily #Afib * Per patient history Plan: * Restarted home amiodarone 200 mg daily * Restarted home Eliquis 2.5 mg twice a day #CAD status post CABG * Procedure was in 2018 Plan: * Restarted home Eliquis 2.5 mg p.o. twice daily #Hyperlipidemia * Per patient history Plan: * Consider restarting home statin medication #JULIAN on CKD * Patient presented with a creatinine of 3.0, baseline appears to be around 2.4 * Patient presented with a BUN of 67, appears to be around baseline Plan: * No direct intervention at this time #Left basilar pneumonia Plan: * Doxycycline 100 mg IV twice daily * Ceftriaxone 1 g daily Hospital Maintenance: DVT ppx: Eliquis 2.5 mg twice a day Diet: Carb consistent IV lines: Peripheral IVs Rwoe: In place Code status: Full code Dispo: Telemetry monitoring floor. Patient was seen and discussed with my attending physician Dr. Sravanthi ACOSTA and my senior resident Dr. Nirav ACOSTA PGY-2. Mejia Burden DO PGY-1. Attending Provider Attestation/Addendum After examining patient and review of the clinical data patient was found to have high probability of imminent deterioration which required my direct management and intervention TOTAL CC TIME: 60 MIN TOTAL TIME: 60 Minutes of direct medical management and planning of care. I Geovanna Fishman MD, attest that I was physically present for grier portions of evaluation, and examined patient, labs and imagings and plan of care were discussed with IM residents team, and I agree with the findings and plans documented above.
[2025-05-05] MEDS: DOXYCYCLINE INJ 100 MG in SODIUM CHLORIDE 0.9% (POP) 100 ML IV (20:08)
[2025-05-05 20:22] LABS: COVID-19 Antigen (In-House) Negative (Negative)
[2025-05-05 20:48] LABS: Collection Type, Urine Clean Catch
[2025-05-05 20:52] LABS: Base Excess, Venous -6 (-3-3); O2 Saturation, Venous 99 % (96-97); PCO2, Venous 35 mmHg (36-56); PO2, Venous 112 mmHg (15-58); pH, Venous 7.35 (7.33-7.66)
[2025-05-05 21:04] LABS: Bilirubin,Urine Negative (Negative); Blood,Urine Trace (Negative); Clarity,Urine Clear (Clear/Hazy); Color,Urine Lt-Yellow (Lt Yel-Yel); Glucose, Urine Negative (Negative); Hyaline Casts,Urine 1 /hpf (0-1); Ketones,Urine Negative (Negative); Leukocyte Esterase,Urine Negative (Negative); Nitrite,Urine Negative (Negative); PH,Urine 5.5 (5.0-7.0); Protein,Urine 1+ (Neg - Trace); RBC,Urine 18 /hpf (0-3); Specific Gravity,Urine 1.019 (1.001-1.035); Squamous Epithelial Cell,Urine 1 /hpf (0-5); Urobilinogen,Urine Negative mg/dL (0.0-1.0); WBC,Urine 5 /hpf (0-5)
[2025-05-05 21:12] LABS: Albumin, Serum 3.6 gm/dL (3.4-4.8); Anion Gap 10 (7-16); BUN/Creatinine Ratio 22 Ratio (12-20); Blood Urea Nitrogen 67 mg/dL (9-23); Calcium 9.6 mg/dL (8.3-10.6); Calcium (Corrected) 9.9 mg/dL (8.5-10.1); Carbon Dioxide 20.7 mMol/L (20.0-31.0); Chloride 116 mMol/L (98-107); Creatinine (Component) 3.0 mg/dL (0.6-1.3); Estimated Creatinine Clearance 32.3 mL/min (>60); Glucose 78 mg/dL (74-106); Osmolality,Calculated 310 (275-295); Phosphorous 6.6 mg/dL (2.4-5.1); Potassium 5.8 mMol/L (3.4-5.1); Sodium 147 mMol/L (136-145); eGFR 22 See Note
--- NOTE | 2025-05-05 21:43 | PC.NURSE ---
REPORT GIVEN TO ICU NURSE RILEY
--- NOTE | 2025-05-05 22:06 | ESCONSULT_ITS ---
HPI Data of Consult Requesting Physician: Geovanna Fishman MD Admitting Provider: Geovanna Fishman MD Attending Provider: Geovanna Fishman MD Primary Care Provider: Sandra Vines MD Consult Narrative Reason for consult: hypoglycemia & hypothermia History of present illness: Mr. Amezcua is a 69-year-old male with history of Heart failure preserved ejection fraction, A-fib, CAD status post CABG in 2018, DVT left lower extremity, ischemic colitis status post colostomy at [facility], insulin-dependent diabetes on 50 units presented to the ED around 1 PM with hypoglycemia and hypothermia. Per patient's and patient, patient was following his normal routine of waking up at 10 AM and went to the restroom. After sitting on his commode, patient was unable to get off the commode. At 10:10 AM patient's found him looking spacey and lethargic. She also noticed that he was ice cold to touch. She took a blood sugar which was 89 and after a glass of juice repeat blood glucose was 5910 minutes later. She decided to call the ambulance at 11 AM to bring him to the hospital. Patient states that he only felt wobbly, mild cough and weak the day prior however denies any other symptoms of nausea, vomiting, headache, body aches, fevers, chills, or recent travel. ED course: Significant vitals on arrival: Blood pressure 162/70, heart rate of 38, temperature of 88 ?F; significant labs for low glucose of 40, elevated BUN at 65, bicarb 19.3, creatinine 2.9, elevated LFTs Imaging: Chest x-ray showed early pneumonia left base, EKG showed bradycardia rate of [address] segment changes In the ED: Terry fernandez, Patient received dextrose, albuterol 15 mg, calcium chloride 10 mg, 50 mill EQ of sodium bicarb, 8 units of insulin, 2 g ceftriaxone, sodium polystyrene sulfonate 15 GM p.o. x 1 Patient was initially admitted to telemetry for further management of patient's hypothermia and hypoglycemia however despite being on D10 at 50 mL/hr dropped from 1 25-78 despite eating 2 puddings. At this time, patient will be upgraded to ICU for further close monitoring for patient's hypothermia and hypoglycemia. cc:: cc: Geovanna Fishman MD Review of Systems Review of Systems Systems Reviewed: All systems reviewed, normal except as documented Past Medical History Past Medical History Comments PMH COMMENT: Past medical history: As above in HPI Surgical history: CABG in 2018, colostomy, appendectomy in the 1980s Social history: Lives at home, with his , denies alcohol tobacco or illicit drug use Family history: Unknown Allergies: Fentanyl Home medications: Amiodarone 200 mg daily, Amlodipine 5 mg daily, Calcitriol 0.5 mcg, Coenzyme Q 1000 mg, Cyclobenzaprine 5 mg 3 times daily as needed, Eliquis 2.5 mg p.o. twice daily, Entresto p.o. twice daily, Febuxostat 40 mg daily, Ferrous sulfate, Hydroxyzine 25 mg p.o. twice daily, Nephro-Isabel, Rosuvastatin 5 mg p.o. nightly, Sevelamer 800 mg 3 times daily with meals, Tradjenta 5 mg nightly, 50 units Xultphy subcutaneous daily Exam Vital Signs Temp Pulse Resp BP Pulse Ox O2 Del Method 92.8 F L 68 14 122/41 L 98 Room Air 05/05/25 20:13 05/05/25 20:13 05/05/25 20:13 05/05/25 20:13 05/05/25 20:13 05/05/25 20:13 Narrative Exam General Appearance: Pt in no acute distress, alert and awake, conversational, slow at times with speech, in NAD laying comfortably in bed. HEENT: NC/AT, no scleral icterus, no conjunctival pallor, dry mucous membranes Lungs: CTAB, no wheezes or crackles appreciated CVS: RRR, S1/S2 heard, no murmurs or rubs appreciated ABD: Soft, obese, colostomy bag in place draining green fluid, non-tender, non- distended, BS + in all 4 quadrants EXT: 3+ pitting edema to b/l LE, radial pulses 2+ BL, DP pulses 2 + BL SKIN: Erythematous rash on anterior aspect of left brady about 15cm x 5cm, warm to touch, not tender; skin pruning seen on right leg, with mild erythema seen in the right toe webs extending into the anterior aspect of dorsum 2cm with scattered seborrheic dermatitis ; 3+ bilateral pitting edema lower extremities. 2+ radial and dorsalis pedis pulses bilaterally. Neuro: A&O x [address] and time. No gross neurological deficits. Motor and sensory grossly intact in B/L UL and LL. Psych: Appropriate mood and affect Results Labs 05/07/25 04:24 05/07/25 04:24 Labs: Short CBC 05/05/25 Range/Units 15:05 WBC 7.0 (3.8-10.6) Thou/mm3 Hgb 10.3 L (13.5-16.0) g/dL Hct 33.1 L (41.0-53.0) % Plt Count 82 L (140-440) Thou/mm3 BMP 05/05/25 05/05/25 16:52 20:37 Sodium 145 147 H Potassium 6.8 H* 5.8 H D Chloride 117 H 116 H Carbon Dioxide 19.3 L 20.7 BUN 65 H 67 H Creatinine 2.9 H 3.0 H Glucose 85 78 Calcium 8.9 9.6 Cardiac Enzymes 05/05/25 Range/Units 16:52 Troponin I < 0.020 (0.0-0.045) ng/mL Liver Function 05/05/25 05/05/25 Range/Units 16:52 20:37 Total Bilirubin 0.4 (0.3-1.2) mg/dL AST 51 H (0-34) U/L ALT 53 H (10-49) U/L Alkaline Phosphatase 84 (46-116) U/L Albumin 3.9 3.6 (3.4-4.8) gm/dL Urine 05/05/25 Range/Units 20:26 Urine Color Lt-Yellow (Lt Yel-Yel) Urine Clarity Clear (Clear/Hazy) Urine pH 5.5 (5.0-7.0) Ur Specific E[place]ar 1.019 (1.001-1.035) Urine Protein 1+ A (Neg - Trace) Urine Glucose (UA) Negative (Negative) ABG Interpretation ABG results: 05/05/25 20:37 VBG pH 7.35 VBG pCO2 35 L VBG pO2 112 H VBG Base Excess -6 L Quality Measures Quality Measures VTE prophylaxis Advance care planning discussed with:: patient Medications Home Medications and Allergies Home Medications ?Medication ?Instructions ?Recorded ?Confirmed ?Type fexofenadine 180 mg tablet 180 mg PO QPM #0 tabs 03/2111/08/23 History (Tonia Allergy) linagliptin 5 mg tablet (Tradjenta) 5 mg PO QPM ##0 11/08/23 History coenzyme Q10 100 mg capsule 100 mg PO QPM 05/16/2001/23 History (CoQ-10) febuxostat 40 mg tablet (Uloric) 40 mg PO QPM 05/16/20 11/08/23 History insulin degludec 100 50 unit subcut QDAY 05/16/20 11/08/23 History unit-liraglutide 3.6 mg/mL(3 mL) subcutaneous pen (Xultophy 100/3.6) amiodarone 200 mg tablet 200 mg PO DAILY 11/08/2301/23 History cyclobenzaprine 5 mg tablet 5 mg PO QPM muscle spasms 11/08/23 11/08/23 History ferrous sulfate 325 mg (65 mg 325 mg PO DAILY 11/08/23 11/08/23 History iron) tablet Allergies Allergy/AdvReac Type Severity Reaction Status Date / Time fentanyl Allergy Intermediate Rash Verified 05/05/25 13:19 Visit Medications Acetaminophen (Acetaminophen 325 Mg Tablet) 650 mg PO Q6H PRN PRN Reason: Fever >101.5 Stop: 06/04/25 19:23 Amiodarone HCl (Amiodarone Hcl 200 Mg Tablet) 200 mg PO DAILY CINDI Stop: 06/05/25 08:59 Amlodipine Besylate (Amlodipine Besylate 5 Mg Tablet) 5 mg PO DAILY CINDI Stop: 06/05/25 08:59 Apixaban (Apixaban 2.5 Mg Tablet) 2.5 mg PO BID CINDI Stop: 06/05/25 08:59 Dextrose (D10w) 1,000 mls @ 50 mls/hr IV .Q20H CINDI Stop: 05/06/25 11:14 Last Admin: 05/05/25 15:07 Dose: 50 mls/hr Doxycycline Hyclate 100 mg/ (Sodium Chloride) 100 mls @ 100 mls/hr IV BID CINDI Stop: 05/12/25 20:59 Last Infusion: 05/05/25 21:10 Dose: Infused Sodium Chloride (Sodium Chloride Rt Apryl 0.9% 3 Ml Nebu) 3 ml INH PRN PRN PRN Reason: SOLN Stop: 06/04/25 17:26 Last Admin: 05/05/25 18:57 Dose: 3 ml Sodium Chloride (Sodium Chloride Rt Apryl 0.9% 3 Ml Nebu) 3 ml INH PRN PRN PRN Reason: SOLN Stop: 06/04/25 18:07 Discontinued Medications Acetaminophen (Acetaminophen Supp 650 Mg Supp) 650 mg TN Q6HR PRN PRN Reason: Fever > 100.4 Stop: 06/04/25 19:23 Albuterol (Albuterol Rt 2.5 Mg/0.5 Ml Nebu) 5 mg INH X1 ONE Stop: 05/05/25 17:28 Last Admin: 05/05/25 18:07 Dose: 5 mg Albuterol (Albuterol Rt 2.5 Mg/0.5 Ml Nebu) 10 mg INH X1 ONE Stop: 05/05/25 18:09 Last Admin: 05/05/25 18:57 Dose: 10 mg Dextrose (Dextrose 50%-Water Inj 50 Ml Syringe) 50 ml IVP X1 ONE Stop: 05/05/25 14:50 Last Admin: 05/05/25 14:56 Dose: 50 ml Dextrose (Dextrose 50%-Water Inj 50 Ml Syringe) 50 ml IVP X1 ONE Stop: 05/05/25 17:23 Last Admin: 05/05/25 18:19 Dose: 50 ml Dextrose (D10w 1000 Ml) 1,000 mls @ 50 mls/hr IV .Q20H CINDI Stop: 05/06/25 10:49 Last Admin: 05/05/25 15:55 Dose: Not Given Calcium Chloride 10 ml/ (Dextrose) 110 mls @ 110 mls/hr IV X1 ONE Stop: 05/05/25 18:21 Last Infusion: 05/05/25 19:15 Dose: Infused Ceftriaxone Sodium 2 gm/ (Sodium Chloride) 50 mls @ 100 mls/hr IV X1 ONE Stop: 05/05/25 17:56 Last Infusion: 05/05/25 18:58 Dose: Infused Insulin Human Regular (Insulin Hum Regular 1 Unit/0.01 Ml (Per Unit)) 8 unit IV X1 ONE Stop: 05/05/25 17:23 Last Admin: 05/05/25 18:20 Dose: 8 unit Sodium Bicarbonate (Sodium Bicarb Inj 8.4% 1 Meq/Ml 50 Ml Vial) 50 meq IV X1 ONE Stop: 05/05/25 17:23 Last Admin: 05/05/25 18:19 Dose: 50 meq Sodium Polystyrene Sulfonate (Sod Polystyrene Sulfon Susp 15 Gm/60 Ml Btl) 15 gm PO X1 ONE Stop: 05/05/25 18:09 Last Admin: 05/05/25 18:28 Dose: 15 gm Assessment & Plan Plan Mr. Amezcua is a 69-year-old male with history of Heart failure preserved ejection fraction, A-fib, CAD status post CABG in 2018, DVT left lower extremity, ischemic colitis status post colostomy at [facility], insulin-dependent diabetes on 50 units presented to the ED around 1 PM with hypoglycemia and hypothermia and admitted to telemetry for further management. At this time, patient will be upgraded to ICU for further close monitoring for patient's hypothermia and hypoglycemia. NEURO #Altered mentation-resolved Per patient's , patient appeared to be spacey and lethargic, now improved but still at risk for encephalopathy from hypoglycemia, hypothermia, and possible sepsis, but less likely -Monitor neuro checks -Assess for any toxic/metabolic encephalopathy (review medications, insulin doses, possible narcotics or sedatives) -Continue active rewarming with Terry hugger until normothermic -Consider CT head imaging if mental status worsens #Hypothermia T = 88?F on arrival Likely multifactorial: possible sepsis, hypoglycemia, environmental exposure unclear. -Active rewarming with Terry Hugger -Serial temperature checks q1?2h -Evaluated for infectious source, currently no source found CARDIO #NSTEMI likely type II #History of Heart failure with preserved ejection fraction (HFpEF) #CAD s/p CABG 2018 #A-fib #DVT -Continue with home amiodarone 200 mg daily as bradycardia is resolved and Eliquis 2.5 mg twice a day -Continue with home amlodipine 5mg #Bradycardia- resolved DDx: likely due to hypothermia, hypoglycemia, and electrolyte imbalances (possible hyperkalemia) -Continue to monitor on alarm security or surveillance monitor #HLD -Resume home statin PULM #CAP Patient states he had a mild cough x 1 day. CXR showed possible/questionable left base PNA However patient's has a lack of systemic signs such as fever, body aches, chills except for some weakness Patient given Ceftriaxone 2g x1 and Doxycycline 100mg x 1 -Will discontinue Abx at this time -Will continue to monitor patient's symptoms -Maintain O2 > 94% GI/FEN #Risk of poor intake contributing to hypoglycemia Patient has since been able to tolerate carb consistent diet Saw patient actively eating pudding during exam -Continue with Carb consistent diet -Continue D10 infusion and adjust per glucose levels -Strict I/O -Consider nutrition consult if hypoglycemia persists #S/p colostomy from ischemic colitis-stable RENAL #Hyperkalemia Received Hyperkalemia cocktail after a 6.8 level on ed arrival -Gentle hydration with D10 -Avoid nephrotoxins -Adjust renally-dosed meds #Acute kidney insufficiency on CKD stage 4 DDx: in the setting of Hyperkalemia -Treat above with cocktail if needed again -F/u AM labs -Resumed home nephro isabel, Sevelamer carbonate, and calcitriol -F/u with Nephrology outpatient HEME/ONC #History of DVT Unsure if patient was on skilled nursing treatment prior to A-fib diagnosis -Continue with Eliquis 2.5mg BID for A-fib for stroke prevention -No acute bleeding reported ENDO #Severe recurrent hypoglycemia Patient presented with a BG of 59 at home, and 40 upon arrival in the ED. Despite D10 at 50 mL/hr and oral intake, patient's glucose continues to be in the mid 70s Initially improved to BG as high as 123, however after switching to D5w d/t increasing osmolality, patient's glucose now 82 on AM labs Patient took 50 units of xultophy (Degludec + GLP-1) the night prior, which is daily routine Patient denies having a poor oral intake, as lives with him at home Patient also takes home Tradjenta, however, patient's spouse didn't mention patient taking this medication last night -Glucose checks Q1HR -Downtitrate D5 gtt once BG can be maintained to goal of 70-130 fasting, and 140-180, hospital target goal after eating, however, continues to decrease despite being on gtt -Will hold off on long acting and short acting insulin -D/t how sudden patient's hypoglycemia was, will start with hydrocortisone 200 x 1 followed with 100mg Q6HR for stress response (less likely to be adrenal insufficency d/t BP being stable) -Consider D50 push PRN for acute drops -Continue to check temperature to normal with Terry hugger -After patient regains normal BG level and normothermic, patient would benefit from a nutrition consult and a decrease in his current insulin requirements prior to discharge ID no active issues MSK #Generalized weakness -Patient stated he had generalized weakness and felt wobbly x 1 day and inability to stand from commode this morning most likely from his hypoglycemia DDx: Hypothermia-induced shivering may cause increased metabolic demand could have also played a role, however, most likely his hypoglycemia lead to his hypothermia -PT/OT when stable -Rewarm with Terry hugger to normal temperature PSYCH Health Maintenance: DVT prophylaxis: Eliqui 2.5mg BID GI prophylaxis: None Diet: Carb consistent diet Rowe: Yes Lines: PIV Drips: D10 W CODE STATUS: Full code Disposition: Admitted to ICU for close monitoring for hypothermia and hypoglycemia. Patient's care and plan discussed with my attending, Dr. Fishman. Shari Lambert, PGY-3 Attending Provider Attestation/Addendum After examining patient and review of the clinical data patient was found to have high probability of imminent deterioration which required my direct management and intervention TOTAL CC TIME: 60 MIN TOTAL TIME: 60 Minutes of direct medical management and planning of care. I Geovanna Fishman MD, attest that I was physically present for grier portions of evaluation, and examined patient, labs and imagings and plan of care were discussed with IM residents team, and I agree with the findings and plans documented above.
--- NOTE | 2025-05-05 22:07 | EKG_ITS ---
[facility] Test Date: 2025-05-05 Pat Name: HAMILTON DELGADO [facility] Clinical Marketing Manager: : 1955 Requested By: Shari Lambert Order Number: [id number] Reading MD: Shari Lambert Measurements Intervals [place] Rate: 37 P: -46 KS: 272 QRS: -40 QRSD: 154 T: 11 QT: 653 QTc: 517 Interpretive Statements SINUS BRADYCARDIA WITH FIRST DEGREE AV BLOCK LEFT AXIS DEVIATION [QRS AXIS < -30] INTRAVENTRICULAR CONDUCTION DELAY [130+ ms QRS DURATION] PROLONGED QT INTERVAL CRITICAL TEST RESULT Compared to ECG 05/05/2025 14:56:08 First degree AV block now present /store/S0/[id number].pdf
[2025-05-05] MEDS: HYDROCORTISONE SOD SUCC INJ 100 MG 2 ML VIAL 200 MG IV (23:17)
[2025-05-05] MEDS: DEXTROSE 10%-WATER 1,000 ML 75 ML IV (23:27)
[2025-05-06] VITALS (92 sets, daily range): BP systolic 102–168; BP diastolic 39–82; PULSE 64–86; RESP 2–28; TEMP 35.9–36.9; O2SAT 95–100; BMI 49.1
[2025-05-06 00:05] LABS: Lactate (Lactic Acid) 0.8 mMol/L (0.4-2.0)
[2025-05-06 00:41] LABS: Procalcitonin 0.20 ng/ml (0.0-0.49); Thyroid Stimulating Hormone 3.30 uIU/mL (0.55-4.78)
[2025-05-06] MEDS: SODIUM CHLORIDE RT 10% 15 ML NEBU 5 ML INH (01:04)
[2025-05-06] MEDS: DEXTROSE 5%-WATER 500 ML 125 ML IV (03:05)
[2025-05-06 05:17] LABS: Basophils # (Auto) 0.0 Thou/mm3 (0.0-0.2); Basophils % (Auto) 1 % (0-2.5); Eosinophils # (Auto) 0.0 Thou/mm3 (0.0-0.5); Eosinophils % (Auto) 0 % (0-10); Hematocrit 28.6 % (41.0-53.0); Hemoglobin 9.1 g/dL (13.5-16.0); Immature Granulocytes Auto 0.08 Thou/mm3 (0.00-0.00); Lymphocytes # (Auto) 1.1 Thou/mm3 (1.0-4.8); Lymphocytes % (Auto) 16 % (10-50); Mean Corpuscular HGB Conc 31.8 g/dl (31.0-37.0); Mean Corpuscular Hemoglobin 31.2 pg (25.0-35.0); Mean Corpuscular Volume 98 fL (80-100); Monocytes # (Auto) 0.4 Thou/mm3 (0.0-0.8); Monocytes % (Auto) 6 % (0-12); Neutrophils # (Auto) 5.2 Thou/mm3 (1.8-7.7); Neutrophils % (Auto) 76 % (37-80); Nucleated Red Blood Cell # 0.05 Thou/mm3 (0.00-0.00); Nucleated Red Blood Cell % 1 /100 WBC (0); RDW Standard Deviation 57.1 fL (35.1-43.9); Red Blood Count 2.92 Miln/mm3 (4.50-5.90); White Blood Count 6.9 Thou/mm3 (3.8-10.6)
[2025-05-06 05:30] LABS: Platelet Count 78 Thou/mm3 (140-440)
[2025-05-06] MEDS: HYDROCORTISONE SOD SUCC INJ 100 MG 2 ML VIAL IV (05:39)
[2025-05-06 05:53] LABS: Alanine Aminotransferase 46 U/L (10-49); Albumin, Serum 3.6 gm/dL (3.4-4.8); Albumin/Globulin Ratio 1.6 (1.2-2.2); Alkaline Phosphatase 76 U/L (46-116); Anion Gap 10 (7-16); Aspartate Amino Transferase 39 U/L (0-34); BUN/Creatinine Ratio 17 Ratio (12-20); Bilirubin,Total 0.3 mg/dL (0.3-1.2); Blood Urea Nitrogen 54 mg/dL (9-23); Calcium 8.9 mg/dL (8.3-10.6); Calcium (Corrected) 9.2 mg/dL (8.5-10.1); Carbon Dioxide 18.8 mMol/L (20.0-31.0); Cardiac Risk Estimate 2.1 RATIO (4.0-6.7); Chloride 116 mMol/L (98-107); Cholesterol 122 mg/dL (132-200); Creatinine (Component) 3.1 mg/dL (0.6-1.3); Estimated Creatinine Clearance 31.2 mL/min (>60); Globulin 2.2 gm/dL (2.3-3.5); Glucose 89 mg/dL (74-106); HDL Cholesterol 59 mg/dL (40-60); LDL Cholesterol,Calculated 54 mg/dL (0-130); Magnesium 1.6 mg/dL (1.6-2.6); Osmolality,Calculated 302 (275-295); Sodium 145 mMol/L (136-145); Total Protein 5.8 gm/dL (5.7-8.2); Triglycerides 45 mg/dL (30-150); eGFR 21 See Note
[2025-05-06 05:56] LABS: Slide Review Platelets confirmed
[2025-05-06 06:14] LABS: Potassium 7.3 mMol/L (3.4-5.1)
--- NOTE | 2025-05-06 06:21 | EKG_ITS ---
[facility] Test Date: 2025-05-06 Pat Name: HAMILTON DELGADO [facility] Signaling Design Engineer: LUCERO : 1955 Requested By: Shari Lambert Order Number: [id number] Reading MD: Shari Lambert Measurements Intervals [place] Rate: 67 P: 25 DE: 213 QRS: 29 QRSD: 133 T: 35 QT: 431 QTc: 456 Interpretive Statements SINUS RHYTHM WITH FIRST DEGREE AV BLOCK WITH OCCASIONAL SUPRAVENTRICULAR PREMATURE COMPLEXES INTRAVENTRICULAR CONDUCTION DELAY Compared to ECG 05/05/2025 14:58:02 Sinus bradycardia no longer present Left-axis deviation no longer present Prolonged QT interval no longer present /store/S0/[id number].pdf
[2025-05-06] MEDS: ALBUTEROL RT 2.5 MG/0.5 ML NEBU 10 MG INH ×2 (06:47→17:13)
[2025-05-06] MEDS: SODIUM CHLORIDE RT SOL 0.9% 3 ML NEBU INH ×2 (06:47→17:13)
--- NOTE | 2025-05-06 07:02 | EKG_ITS ---
[facility] Test Date: 2025-05-06 Pat Name: HAMILTON DELGADO [facility] Hand I Cutter: LUCERO : 1955 Requested By: Watson Menon Order Number: [id number] Reading MD: Watson Menon Measurements Intervals [place] Rate: 65 P: 29 PA: 230 QRS: 30 QRSD: 141 T: 38 QT: 450 QTc: 470 Interpretive Statements SINUS RHYTHM WITH MARKED SINUS ARRHYTHMIA WITH FIRST DEGREE AV BLOCK INTRAVENTRICULAR CONDUCTION DELAY Compared to ECG 05/06/2025 06:45:27 No significant changes /store/S0/[id number]
[2025-05-06] MEDS: INSULIN HUM REGULAR 1 UNIT/0.01 ML (PER UNIT) 5 UNIT IV ×2 (07:40→10:25)
[2025-05-06] MEDS: DEXTROSE 50%-WATER INJ 50 ML SYRINGE IVP ×2 (07:45→07:50)
[2025-05-06] MEDS: SOD POLYSTYRENE SULFON SUSP 15 GM/60 ML BTL 30 GM PO ×2 (07:46→19:06)
[2025-05-06] MEDS: SOD POLYSTYRENE SULFON SUSP 15 GM/60 ML BTL PO (07:49)
--- NOTE | 2025-05-06 07:56 | XR_ITS ---
EXAMINATION: AP chest single view TECHNIQUE: AP portable semiupright chest single view Date and time: May 06, 2025, 0800 hours, comparison May 05, 2025 INDICATIONS: Chest pain hypothermia today. FINDINGS: Pneumonia right base obscuring detail right hemidiaphragm No significant cardiac enlargement Median sternotomy wires Mild vascular congestion Prominent osteopenia IMPRESSION: Pneumonia right base
[2025-05-06 08:07] LABS: Free T4 (Free Thyroxine) 1.21 ng/dL (0.89-1.76)
[2025-05-06 08:13] LABS: Troponin I 0.079 ng/mL (0.0-0.045)
[2025-05-06] MEDS: CALCIUM GLUC/NS 1000MG IVPB 1,000 MG/50 ML BAG 50 MG IV (08:30)
[2025-05-06] MEDS: SEVELAMER CARBONATE 800 MG TABLET PO ×3 (08:43→19:07)
[2025-05-06] MEDS: FERROUS SULF 325 MG TABLET PO (08:43)
[2025-05-06] MEDS: VIT B12/Vit C/FA (Nephrovite) TABLET 1 TAB PO (08:43)
[2025-05-06] MEDS: AMIODARONE HCL 200 MG TABLET PO (08:43)
[2025-05-06] MEDS: PATIROMER CALCIUM 8.4 GM PACKET PO ×2 (08:56→19:13)
[2025-05-06] MEDS: cefTRIAXone/D5w 1gm IV premix 1 GM/50 ML BAG IV (09:52)
[2025-05-06 09:58] LABS: Albumin, Serum 3.5 gm/dL (3.4-4.8); Anion Gap 10 (7-16); BUN/Creatinine Ratio 19 Ratio (12-20); Blood Urea Nitrogen 61 mg/dL (9-23); Calcium 8.6 mg/dL (8.3-10.6); Calcium (Corrected) 9.0 mg/dL (8.5-10.1); Carbon Dioxide 17.7 mMol/L (20.0-31.0); Chloride 115 mMol/L (98-107); Creatinine (Component) 3.2 mg/dL (0.6-1.3); Estimated Creatinine Clearance 33.6 mL/min (>60); Glucose 175 mg/dL (74-106); Osmolality,Calculated 306 (275-295); Phosphorous 5.4 mg/dL (2.4-5.1); Sodium 143 mMol/L (136-145); eGFR 20 See Note
[2025-05-06 09:59] LABS: Potassium 6.9 mMol/L (3.4-5.1)
--- NOTE | 2025-05-06 10:00 | PD.RESCONSUL ---
HPI Data of Consult Consult date: 05/06/25 Requesting Physician: Jeniffer Ta MD Admitting Provider: Geovanna Fishman MD Attending Provider: Jeniffer Ta MD Primary Care Provider: Sandra Vines MD Consult Narrative Reason for consult: JULIAN, Hyperkalemia, acidosis History of present illness: Mr. Amezcua is a 69-year-old male with history of Heart failure preserved ejection fraction, A-fib, CAD status post CABG in 2018, DVT left lower extremity, ischemic colitis status post colostomy at [facility], insulin-dependent diabetes on 50 units presented to the ED around 1 PM with hypoglycemia and hypothermia. Per patient's and patient, patient was following his normal routine of waking up at 10 AM and went to the restroom. After sitting on his commode, patient was unable to get off the commode. At 10:10 AM patient's found him looking spacey and lethargic. She also noticed that he was ice cold to touch. She took a blood sugar which was 89 and after a glass of juice repeat blood glucose was 5910 minutes later. She decided to call the ambulance at 11 AM to bring him to the hospital. Patient states that he only felt wobbly, mild cough and weak the day prior however denies any other symptoms of nausea, vomiting, headache, body aches, fevers, chills, or recent travel. ED course: Significant vitals on arrival: Blood pressure 162/70, heart rate of 38, temperature of 88 ?F; significant labs for low glucose of 40, elevated BUN at 65, bicarb 19.3, creatinine 2.9, elevated LFTs Imaging: Chest x-ray showed early pneumonia left base, EKG showed bradycardia rate of [address] segment changes In the ED: Terry fernandez, Patient received dextrose, albuterol 15 mg, calcium chloride 10 mg, 50 mill EQ of sodium bicarb, 8 units of insulin, 2 g ceftriaxone, sodium polystyrene sulfonate 15 GM p.o. x 1 Patient was initially admitted to telemetry for further management of patient's hypothermia and hypoglycemia however despite being on D10 at 50 mL/hr dropped from 1 25-78 despite eating 2 puddings. At this time, patient will be upgraded to ICU for further close monitoring for patient's hypothermia and hypoglycemia. Nephrology consulted for hyperkalemia in setting of JULIAN, as well as NAGMA. 05/06/25: Patient seen and assessed at bedside. No complaints. AOx3 on exam. Potassium 7.3 this AM, worsened since admission despite hyperkalemia cocktail. Slowly improving with additional Kayexalate and paritomer. Chloride elevated at 116, BUN 54, Cr 3.2 (baseline 2.3-2.6 in 2023). Anion gap 10. Will continue pharmacological management for hyperkalemia, however if fails to improve, patient will likely need dialysis tomorrow. cc:: cc: Jeniffer aT MD Exam Vital Signs Temp Pulse Resp BP Pulse Ox O2 Del Method 97.3 F 71 14 109/46 L 97 Room Air 05/06/25 05:16 05/06/25 08:46 05/06/25 06:48 05/06/25 08:46 05/06/25 06:48 05/05/25 20:13 Narrative Exam Physical Exam General: Awake and in no acute distress. Conversational and non-toxic appearing. HEENT: Normocephalic, atraumatic, mucous membranes moist. Heart: Regular rate and rhythm, normal S1 and S2, no murmurs appreciated. Lungs: Clear to auscultation with no wheezing or crackles. Abdomen: Soft, nondistended, nontender, positive bowel sounds. Colostomy bag. No guarding or rebound tenderness. Neurologic: Alert and oriented x3, no gross neurological deficit, and patient able to move all 4 extremities. Extremities: 2+ pitting edema in lower extremities. Amputated right big and second toes. Skin: Erythematous, warm patch on left brady. No ecchymoses. Results Labs 05/08/25 04:32 05/08/25 04:32 Labs: Short CBC 05/05/25 05/06/25 Range/Units 15:05 04:35 WBC 7.0 6.9 (3.8-10.6) Thou/mm3 Hgb 10.3 L 9.1 L (13.5-16.0) g/dL Hct 33.1 L 28.6 L (41.0-53.0) % Plt Count 82 L 78 L (140-440) Thou/mm3 BMP 05/05/25 05/05/25 05/06/25 16:52 20:37 04:35 Sodium 145 147 H 145 Potassium 6.8 H* 5.8 H D 7.3 H* D Chloride 117 H 116 H 116 H Carbon Dioxide 19.3 L 20.7 18.8 L BUN 65 H 67 H 54 H Creatinine 2.9 H 3.0 H 3.1 H Glucose 85 78 89 Calcium 8.9 9.6 8.9 05/06/25 08:31 Sodium 143 Potassium 6.9 H* Chloride 115 H Carbon Dioxide 17.7 L BUN 61 H Creatinine 3.2 H Glucose 175 H D Calcium 8.6 Cardiac Enzymes 05/05/25 05/06/25 Range/Units 16:52 04:35 Troponin I < 0.020 0.079 H* (0.0-0.045) ng/mL Liver Function 05/05/25 05/05/25 05/06/25 Range/Units 16:52 20:37 04:35 Total Bilirubin 0.4 0.3 (0.3-1.2) mg/dL AST 51 H 39 H (0-34) U/L ALT 53 H 46 (10-49) U/L Alkaline Phosphatase 84 76 (46-116) U/L Albumin 3.9 3.6 3.6 (3.4-4.8) gm/dL 05/06/25 Range/Units 08:31 Total Bilirubin (0.3-1.2) mg/dL AST (0-34) U/L ALT (10-49) U/L Alkaline Phosphatase (46-116) U/L Albumin 3.5 (3.4-4.8) gm/dL Urine 05/05/25 Range/Units 20:26 Urine Color Lt-Yellow (Lt Yel-Yel) Urine Clarity Clear (Clear/Hazy) Urine pH 5.5 (5.0-7.0) Ur Specific [place] 1.019 (1.001-1.035) Urine Protein 1+ A (Neg - Trace) Urine Glucose (UA) Negative (Negative) ABG Interpretation ABG results: 05/05/25 20:37 VBG pH 7.35 VBG pCO2 35 L VBG pO2 112 H VBG Base Excess -6 L Quality Measures Quality Measures none Advance care planning discussed with:: patient Medications Home Medications and Allergies Home Medications ?Medication ?Instructions ?Recorded ?Confirmed ?Type fexofenadine 180 mg tablet 180 mg PO QPM #0 tabs 03/21/17 05/07/25 History (Tonia Allergy) linagliptin 5 mg tablet (Tradjenta) 5 mg PO QPM ##0 03/21/17 05/07/25 History Held on 05/07/25. Instructions: Order Change coenzyme Q10 100 mg capsule 100 mg PO QPM 05/16/20 05/07/25 History (CoQ-10) febuxostat 40 mg tablet (Uloric) 40 mg PO QPM 05/16/20 05/07/25 History Held on 05/07/25. Instructions: Order Change insulin degludec 100 50 unit subcut QDAY 05/16/20 05/07/25 History unit-liraglutide 3.6 mg/mL(3 mL) subcutaneous pen (Xultophy 100/3.6) amiodarone 200 mg tablet 200 mg PO DAILY 11/08/23 05/07/25 History cyclobenzaprine 5 mg tablet 5 mg PO QPM muscle spasms 11/08/23 05/07/25 History ferrous sulfate 325 mg (65 mg 325 mg PO DAILY 11/08/23 05/07/25 History iron) tablet allopurinol 100 mg tablet 100 mg PO QDAY 05/07/25 05/07/25 History amoxicillin 500 mg-potassium 1 tab PO BID 05/07/25 05/07/25 History clavulanate 125 mg tablet calcitriol 0.25 mcg capsule 0.25 mcg PO BID 05/07/25 05/07/25 History cinacalcet 60 mg tablet 60 mg PO QDAY 05/07/25 05/07/25 History cyclobenzaprine 5 mg tablet 10 mg PO HS muscle spasm 05/07/25 05/07/25 History furosemide 20 mg tablet 20 mg PO QDAY 05/07/25 05/07/25 History nebivolol 10 mg tablet 10 mg PO QDAY 05/07/25 05/07/25 History Allergies Allergy/AdvReac Type Severity Reaction Status Date / Time fentanyl Allergy Intermediate Rash Verified 05/05/25 13:19 Visit Medications Acetaminophen (Acetaminophen 325 Mg Tablet) 650 mg PO Q6H PRN PRN Reason: Fever >101.5 Stop: 06/04/25 19:23 Amiodarone HCl (Amiodarone Hcl 200 Mg Tablet) 200 mg PO DAILY CINDI Stop: 06/05/25 08:59 Last Admin: 05/06/25 08:43 Dose: 200 mg Amlodipine Besylate (Amlodipine Besylate 5 Mg Tablet) 5 mg PO DAILY CINDI Stop: 06/05/25 08:59 Last Admin: 05/06/25 08:46 Dose: 5 mg Atorvastatin Calcium (Atorvastatin Calcium 10 Mg Tablet) 10 mg PO HS CINDI Stop: 06/05/25 20:59 Calcitriol (Calcitriol 0.25 Mcg Capsule) 0.5 mcg PO QDAY CINDI Stop: 06/05/25 08:59 Last Admin: 05/06/25 08:48 Dose: 0.5 mcg Ferrous Sulfate (Ferrous Sulf 325 Mg Tablet) 325 mg PO QDAY [facility] Stop: 06/05/25 08:59 Last Admin: 05/06/25 08:43 Dose: 325 mg Heparin Sodium (Porcine) (Heparin Sod Inj 5000 Unit/Ml Vial) 5,000 unit SC Q8HR [facility] Stop: 05/20/25 13:59 Hydrocortisone Sodium Succinate (Hydrocortisone Sod Succ Inj 100 Mg 2 Ml Vial) 100 mg IV Q6HR CINDI Stop: 06/05/25 04:59 Last Admin: 05/06/25 05:41 Dose: Not Given Dextrose (D5w) 500 mls @ 125 mls/hr IV .Q4H [facility] Stop: 06/05/25 03:03 Last Admin: 05/06/25 03:05 Dose: 125 mls/hr Ceftriaxone Sodium/Dextrose (Rocephin/D5w 1gm Iv Premix) 1 gm in 50 mls @ 100 mls/hr IV QDAY [facility] Stop: 05/13/25 09:34 Last Admin: 05/06/25 09:52 Dose: 100 mls/hr Influenza Virus Vaccine Quadrival (Influenza Virus 0.5 Ml Syringe ) 0.5 ml IMi .ONCE ONE Stop: 05/08/25 09:01 Sevelamer Carbonate (Sevelamer Carbonate 800 Mg Tablet) 800 mg PO TIDWM [facility] Stop: 06/05/25 07:59 Last Admin: 05/06/25 08:43 Dose: 800 mg Sodium Chloride (Sodium Chloride Rt Apryl 0.9% 3 Ml Nebu) 3 ml INH PRN PRN PRN Reason: SOLN Stop: 06/04/25 18:07 Last Admin: 05/06/25 06:47 Dose: 3 ml Vitamin B Complex/Vit C/Folic Acid (Vit B12/Vit C/Fa (Nephrovite) Tablet) 1 tab PO QDAY CINDI Stop: 06/05/25 08:59 Last Admin: 05/06/25 08:43 Dose: 1 tab Discontinued Medications Acetaminophen (Acetaminophen Supp 650 Mg Supp) 650 mg HI Q6HR PRN PRN Reason: Fever > 100.4 Stop: 06/04/25 19:23 Albuterol (Albuterol Rt 2.5 Mg/0.5 Ml Nebu) 5 mg INH X1 ONE Stop: 05/05/25 17:28 Last Admin: 05/05/25 18:07 Dose: 5 mg Albuterol (Albuterol Rt 2.5 Mg/0.5 Ml Nebu) 10 mg INH X1 ONE Stop: 05/05/25 18:09 Last Admin: 05/05/25 18:57 Dose: 10 mg Albuterol (Albuterol Rt 2.5 Mg/3 Ml Nebu) 10 mg INH X1 ONE Stop: 05/06/25 06:16 Albuterol (Albuterol Rt 2.5 Mg/0.5 Ml Nebu) 10 mg INH X1 ONE Stop: 05/06/25 06:41 Last Admin: 05/06/25 06:47 Dose: 10 mg Apixaban (Apixaban 2.5 Mg Tablet) 2.5 mg PO BID [facility] Stop: 06/05/25 08:59 Dextrose (Dextrose 50%-Water Inj 50 Ml Syringe) 50 ml IVP X1 ONE Stop: 05/05/25 14:50 Last Admin: 05/05/25 14:56 Dose: 50 ml Dextrose (Dextrose 50%-Water Inj 50 Ml Syringe) 50 ml IVP X1 ONE Stop: 05/05/25 17:23 Last Admin: 05/05/25 18:19 Dose: 50 ml Dextrose (Dextrose 50%-Water Inj 50 Ml Syringe) 50 ml IVP X1 ONE Stop: 05/06/25 06:22 Last Admin: 05/06/25 07:45 Dose: 50 ml Dextrose (Dextrose 50%-Water Inj 50 Ml Syringe) 50 ml IVP X1 ONE Stop: 05/06/25 06:23 Dextrose (Dextrose 50%-Water Inj 50 Ml Syringe) 50 ml IVP X1 ONE Stop: 05/06/25 07:32 Last Admin: 05/06/25 07:50 Dose: 50 ml Hydrocortisone Sodium Succinate (Hydrocortisone Sod Succ Inj 100 Mg 2 Ml Vial) 200 mg IV X1 ONE Stop: 05/05/25 22:29 Last Admin: 05/05/25 23:17 Dose: 200 mg Dextrose (D10w 1000 Ml) 1,000 mls @ 50 mls/hr IV .Q20H CINDI Stop: 05/06/25 10:49 Last Admin: 05/05/25 15:55 Dose: Not Given Dextrose (D10w) 1,000 mls @ 50 mls/hr IV .Q20H CINDI Stop: 05/06/25 11:14 Last Admin: 05/05/25 15:07 Dose: 50 mls/hr Calcium Chloride 10 ml/ (Dextrose) 110 mls @ 110 mls/hr IV X1 ONE Stop: 05/05/25 18:21 Last Infusion: 05/05/25 19:15 Dose: Infused Ceftriaxone Sodium 2 gm/ (Sodium Chloride) 50 mls @ 100 mls/hr IV X1 ONE Stop: 05/05/25 17:56 Last Infusion: 05/05/25 18:58 Dose: Infused Doxycycline Hyclate 100 mg/ (Sodium Chloride) 100 mls @ 100 mls/hr IV BID CINDI Stop: 05/12/25 20:59 Last Infusion: 05/05/25 21:10 Dose: Infused Dextrose (D10w) 1,000 mls @ 75 mls/hr IV .[id number] [facility] Stop: 05/06/25 11:47 Last Admin: 05/05/25 23:27 Dose: 75 mls/hr Ceftriaxone Sodium/Dextrose (Rocephin/D5w 1gm Iv Premix) 1 gm in 50 mls @ 100 mls/hr IV QDAY [facility] Stop: 05/12/25 22:45 Last Admin: 05/06/25 04:27 Dose: Not Given Dextrose (D5w) 500 mls @ 150 mls/hr IV .Q3H20M [facility] Stop: 06/05/25 02:59 Last Admin: 05/06/25 04:25 Dose: Not Given Calcium Gluconate/Sodium Chloride (Calcium Gluc/Ns 1000mg Ivpb) 1,000 mg in 50 mls @ 50 mls/hr IV X1 ONE Stop: 05/06/25 09:17 Last Admin: 05/06/25 08:30 Dose: 50 mls/hr Insulin Human Regular (Insulin Hum Regular 1 Unit/0.01 Ml (Per Unit)) 8 unit IV X1 ONE Stop: 05/05/25 17:23 Last Admin: 05/05/25 18:20 Dose: 8 unit Insulin Human Regular (Insulin Hum Regular 1 Unit/0.01 Ml (Per Unit)) 5 unit IV X1 ONE Stop: 05/06/25 06:16 Last Admin: 05/06/25 07:40 Dose: 5 unit Patiromer (Patiromer Calcium 8.4 Gm Packet) 8.4 gm PO X1 ONE Stop: 05/06/25 06:16 Last Admin: 05/06/25 08:56 Dose: 8.4 gm Sodium Bicarbonate (Sodium Bicarb Inj 8.4% 1 Meq/Ml 50 Ml Vial) 50 meq IV X1 ONE Stop: 05/05/25 17:23 Last Admin: 05/05/25 18:19 Dose: 50 meq Sodium Chloride (Sodium Chloride Rt Apryl 0.9% 3 Ml Nebu) 3 ml INH PRN PRN PRN Reason: SOLN Stop: 06/04/25 17:26 Last Admin: 05/05/25 18:57 Dose: 3 ml Sodium Chloride (Sodium Chloride Rt 10% 15 Ml Nebu) 5 ml INH X1 ONE Stop: 05/06/25 00:03 Last Admin: 05/06/25 01:04 Dose: 5 ml Sodium Polystyrene Sulfonate (Sod Polystyrene Sulfon Susp 15 Gm/60 Ml Btl) 15 gm PO X1 ONE Stop: 05/05/25 18:09 Last Admin: 05/05/25 18:28 Dose: 15 gm Sodium Polystyrene Sulfonate (Sod Polystyrene Sulfon Susp 15 Gm/60 Ml Btl) 30 gm PO X1 ONE Stop: 05/06/25 06:22 Last Admin: 05/06/25 07:46 Dose: 30 gm Sodium Polystyrene Sulfonate (Sod Polystyrene Sulfon Susp 15 Gm/60 Ml Btl) 15 gm PO X1 ONE Stop: 05/06/25 07:42 Last Admin: 05/06/25 07:49 Dose: 15 gm Assessment & Plan Plan Patient is a 69-year-old male with history of HFpEF, A-fib, CAD status post CABG in 2018, DVT left lower extremity, ischemic colitis status post colostomy at [facility], insulin-dependent diabetes on 50 units presented to the ED around 1 PM with hypoglycemia and hypothermia, admitted to telemetry for further management. Was upgraded to ICU for further close monitoring for patient's hypothermia and hypoglycemia but downgraded back to telemetry due to resolution of hypothermia. Nephrology consulted for JULIAN, hyperkalemia, and acidosis. #Hyperkalemia (improving) #JULIAN on CKD IV - K 6.8 on admission, improved to 6.1 s/p albuterol, insulin, Kayexalate, and calcium gluconate. - Cr 2.9 --> 3.3 - EKG shows sinus rhythm with first degree AV block, no peak T waves observed - Possibly secondary to adrenal insufficiency given accompanying hypothermia and persistent hypoglycemia Plan: - S/p 200 mg hydrocortisone - Continue medical management for hyperkalemia. If no improvement, will consider temporary dialysis. - Gentle IVF - Avoid nephrotoxic agents - Renally dose medications - Check cortisol off steroids for 24 hours #NAGMA - Anion gap of 11, bicarbonate 19.3, pCO2 19 - Chloride 117 --> 114, improving - Winter's Formula 34-38, appropriately compensated - Likely secondary to hyperchloremic metabolic acidosis Plan: - Sodium bicarb IVP as needed - Gentle IVF - Potential dialysis as above #Hyperphosphatemia - Phosphorus 6.6 on admission, continues to be elevated. Per chart review, levels were also intermittently elevated in the past but baseline appears to be within normal range. - Per patient, he does not take sevelamer at home. - Likely iso worsening JULIAN on CKD Plan: - Continue Sevelemer 800 mg TID #Hx hyperparathyroidism - PTH elevated 140s-200s since 2018 - Calcium 9.6, within normal limits but previously low in November 2023 (7.7-8.1) - Parathyroid nuclear scan 02/17/2023 showed subtle increased isotope accumulation over right thyroid region - Soft tissue US 02/19/23 showed two vascular right thyroid nodules (upper 18 x 16 mm, lower 3.5 x 3.6 mm) but no parathyroid adenoma. FNA recommended at the time, unclear if this was completed. - Was on cinacalcet 60 mg but does not recall if he is still taking it - Suspect secondary iso CKD Plan: - Follow up PTH. If elevated, plan to restart. #Altered mentation-resolved #Hypothermia, resolved #History of Heart failure with preserved ejection fraction (HFpEF) #CAD s/p CABG 2017 #A-fib #DVT #Bradycardia- resolved #HLD #Cough #S/p colostomy from ischemic colitis-stable #Severe recurrent hypoglycemia, resolved #Cellulitis #History of DVT #Generalized weakness - Defer to primary team for management Thank you for your consultation, please do not hesitate to reach out if you have any question or concern Patient plan of care was discussed with the attending physician, Dr. Vines. Tatyana Stein DO, PGY-1 Attending Provider Attestation/Addendum Mr. Amezcua is a 69-year-old male with significant medical history for HTN, CAD s/p CABG (under Dr. Baum), HLD, T2DM, CKD IIIb, gout, obesity, secondary hyperparathyroidism (on calcitriol, Renvela), DVT in [facility], A-fib (on Eliquis), HFpEF and colon resection due to ischemic colitis s/p colostomy in [facility], was brought to ED from home with weakness and noted to have severe hypoglycemia needing D10 drip. He was also noted to be hypothermic and hypotensive needing ICU admission. Patient was given 1 dose of hydrocortisone this morning. Moved to ICU. Potassium was very high and was given a medical management. Renal consultation requested for JULIAN/hyperkalemia. He is one of my CKD patients. Spoke to ICU team-continue with medical management for hyperkalemia. If no improvement will consider temporary dialysis. Patient also seems to have hypothermia, hypotension, hyperkalemia and metabolic acidosis-question adrenal insufficiency. Will monitor his electrolytes closely. Patient got 200 mg of hydrocortisone. Will check cortisol levels off steroids for 24 hours. Continue with gentle IV fluids. Care discussed with ICU team. Thank you Dr. Ta for allowing me to participate in the care of Mr. Amezcua
[2025-05-06] MEDS: CLOTRIMAZOLE CR 1% 30 GM TUBE TOP ×2 (13:30→20:55)
--- NOTE | 2025-05-06 13:49 | PD.INTPROG ---
Documentation for date of: 05/06/25 Subjective Subjective Interval history: This is a 69-year-old male who was admitted to the ICU overnight for hyperkalemia, hypoglycemia and hypothermia. Patient has been given several rounds of insulin with D50 as well as albuterol and Kayexalate. He was placed on a Terry hugger. He was noted to have acute on chronic kidney disease. He was slightly confused. There was initial concern for adrenal insufficiency and the patient was started on hydrocortisone 100 mg IV Q6. This morning the patient is awake alert and conversant though slightly confused. Critical Care Note Critical care time (min.): 0 Exam Vital Signs Temp Pulse Resp BP Pulse Ox O2 Del Method 97.6 F 74 8 L 117/45 L 97 Room Air 05/06/25 08:00 05/06/25 13:15 05/06/25 13:15 05/06/25 13:15 05/06/25 13:15 05/05/25 20:13 Narrative Exam General-no acute distress, obese, awake alert oriented to person place and year but not month HEENT-normocephalic, atraumatic, sclera icteric, oral mucosa somewhat dry Chest-lungs clear to auscultation bilaterally, heart regular, no bruits murmurs auscultated, no increased work of breathing Abdomen-obese, soft, nontender, sounds present, rebound, ostomy in place Extremities-3+ pitting edema bilateral lower extremities, pulses palpable, no clubbing or mottling, moves all 4 extremities, area of possible cellulitis with erythema over the left distal lower extremity Physical Exam Completion Physical Exam Complete?: Yes 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 Labs 05/06/25 04:35 05/06/25 08:31 Labs: Laboratory Results - last 24 hr 05/05/25 05/05/25 05/05/25 15:05 16:52 17:55 WBC 7.0 RBC 3.33 L Hgb 10.3 L Hct 33.1 L MCV 99 MCH 30.9 MCHC 31.1 RDW Std Deviation 59.3 H Plt Count 82 L Neut % (Auto) 55 Lymph % (Auto) 34 Pierce % (Auto) 7 Eos % (Auto) 2 Baso % (Auto) 1 Neut # (Auto) 3.8 Lymph # (Auto) 2.4 Pierce # (Auto) 0.5 Eos # (Auto) 0.1 Baso # (Auto) 0.0 Immature Gran # (Auto) 0.11 H Absolute Nucleated RBC 0.04 H Immature Gran % 2 H Nucleated RBC % 1 H PT 12.2 INR 1.2 VBG pH VBG pCO2 VBG pO2 VBG O2 Sat (Mel) VBG Base Excess Sodium 145 Potassium 6.8 H* Chloride 117 H Carbon Dioxide 19.3 L Anion Gap 9 BUN 65 H Creatinine 2.9 H Estim Creat Clear Calc 33.4 L eGFR 22 L BUN/Creatinine Ratio 22 H Glucose 85 Calculated Osmolality 306 H Lactic Acid 1.1 Calcium 8.9 Corrected Calcium 9.0 Phosphorus Magnesium Total Bilirubin 0.4 AST 51 H ALT 53 H Alkaline Phosphatase 84 Troponin I < 0.020 Total Protein 6.4 Albumin 3.9 Globulin 2.5 Albumin/Globulin Ratio 1.6 Triglycerides Cholesterol LDL Cholesterol, Calc HDL Cholesterol Cholesterol/HDL Ratio Procalcitonin TSH Free T4 Ur Collection Type Urine Color Urine Clarity Urine pH Ur Specific Bryant Urine Protein Urine Glucose (UA) Urine Ketones Urine Blood Urine Nitrite Urine Bilirubin Urine Urobilinogen (Auto) Ur Leukocyte Esterase Urine RBC Urine WBC Ur Squamous Epith Cells Urine Bacteria Hyaline Casts SARS-CoV-2 Ag (Rapid) Misc Test Result 05/05/25 05/05/25 05/05/25 19:19 20:26 20:37 WBC RBC Hgb Hct MCV MCH MCHC RDW Std Deviation Plt Count Neut % (Auto) Lymph % (Auto) Pierce % (Auto) Eos % (Auto) Baso % (Auto) Neut # (Auto) Lymph # (Auto) Pierce # (Auto) Eos # (Auto) Baso # (Auto) Immature Gran # (Auto) Absolute Nucleated RBC Immature Gran % Nucleated RBC % PT INR VBG pH 7.35 VBG pCO2 35 L VBG pO2 112 H VBG O2 Sat (Mel) 99 H VBG Base Excess -6 L Sodium 147 H Potassium 5.8 H D Chloride 116 H Carbon Dioxide 20.7 Anion Gap 10 BUN 67 H Creatinine 3.0 H Estim Creat Clear Calc 32.3 L eGFR 22 L BUN/Creatinine Ratio 22 H Glucose 78 Calculated Osmolality 310 H Lactic Acid Calcium 9.6 Corrected Calcium 9.9 Phosphorus 6.6 H Magnesium Total Bilirubin AST ALT Alkaline Phosphatase Troponin I Total Protein Albumin 3.6 Globulin Albumin/Globulin Ratio Triglycerides Cholesterol LDL Cholesterol, Calc HDL Cholesterol Cholesterol/HDL Ratio Procalcitonin TSH Free T4 Ur Collection Type Clean Catch Urine Color Lt-Yellow Urine Clarity Clear Urine pH 5.5 Ur Specific Bryant 1.019 Urine Protein 1+ A Urine Glucose (UA) Negative Urine Ketones Negative Urine Blood Trace Urine Nitrite Negative Urine Bilirubin Negative Urine Urobilinogen (Auto) Negative Ur Leukocyte Esterase Negative Urine RBC 18 H Urine WBC 5 Ur Squamous Epith Cells 1 Urine Bacteria None Hyaline Casts 1 SARS-CoV-2 Ag (Rapid) Negative Misc Test Result 05/05/25 05/06/25 05/06/25 23:41 04:35 08:31 WBC 6.9 RBC 2.92 L Hgb 9.1 L Hct 28.6 L MCV 98 MCH 31.2 MCHC 31.8 RDW Std Deviation 57.1 H Plt Count 78 L Neut % (Auto) 76 Lymph % (Auto) 16 Pierce % (Auto) 6 Eos % (Auto) 0 Baso % (Auto) 1 Neut # (Auto) 5.2 Lymph # (Auto) 1.1 Pierce # (Auto) 0.4 Eos # (Auto) 0.0 Baso # (Auto) 0.0 Immature Gran # (Auto) 0.08 H Absolute Nucleated RBC 0.05 H Immature Gran % 1 H Nucleated RBC % 1 H PT INR VBG pH VBG pCO2 VBG pO2 VBG O2 Sat (Mel) VBG Base Excess Sodium 145 143 Potassium 7.3 H* D 6.9 H* Chloride 116 H 115 H Carbon Dioxide 18.8 L 17.7 L Anion Gap 10 10 BUN 54 H 61 H Creatinine 3.1 H 3.2 H Estim Creat Clear Calc 31.2 L 33.6 L eGFR 21 L 20 L BUN/Creatinine Ratio 17 19 Glucose 89 175 H D Calculated Osmolality 302 H 306 H Lactic Acid 0.8 Calcium 8.9 8.6 Corrected Calcium 9.2 9.0 Phosphorus 5.4 H Magnesium 1.6 Total Bilirubin 0.3 AST 39 H ALT 46 Alkaline Phosphatase 76 Troponin I 0.079 H* Total Protein 5.8 Albumin 3.6 3.5 Globulin 2.2 L Albumin/Globulin Ratio 1.6 Triglycerides 45 Cholesterol 122 L LDL Cholesterol, Calc 54 HDL Cholesterol 59 Cholesterol/HDL Ratio 2.1 L Procalcitonin 0.20 TSH 3.30 Free T4 1.21 Ur Collection Type Urine Color Urine Clarity Urine pH Ur Specific Bryant Urine Protein Urine Glucose (UA) Urine Ketones Urine Blood Urine Nitrite Urine Bilirubin Urine Urobilinogen (Auto) Ur Leukocyte Esterase Urine RBC Urine WBC Ur Squamous Epith Cells Urine Bacteria Hyaline Casts SARS-CoV-2 Ag (Rapid) Misc Test Result Platelets confirmed Assessment & Plan Additional Assessment Additional Assessment: In summary this is a 69-year-old male admitted to the ICU for hyperkalemia a/p RAMP BOSS Encephalopathy-this is very mild, patient appears to be slightly confused and befuddled and this is likely due to his underlying metabolic issues. He is oriented to person place and year but not month CV CAD-stable Afib- AC on hold for now, rate controlled Resp stable Renal Hyperkalemia-patient has been given additional insulin, albuterol, D50 and 45 mg of Kayexalate. His potassium is trending down. Will give additional Kayexalate and lactulose. Acute on chronic kidney disease-patient is followed by nephrology, follow-up on urinary output, monitor I's and O's, avoid nephrotoxins Hyperchloremic acidosis-patient appears to have had this on a couple admissions. Would check urine electrolytes, patient is at risk for developing an RTA given his history GI stable Endo ? AI-there was a concern by night team for adrenal insufficiency given patient's hypothermia, hyperkalemia and hypoglycemia. However this is in the setting of acute on chronic kidney disease and patient taking several agents for diabetes. his decreased renal clearance could be playing a role in the patient's current hypoglycemia. He is noted to be taking Entresto which can produce hyperkalemia. At this point in time would stop the hydrocortisone and evaluate. Would allow 24 to 48 hours for complete clearance of the hydrocortisone and then check a cortisol level if adrenal insufficiency is still suspected. Diabetes-patient has been hypoglycemic requiring D10, currently this is improving and is now off of the drip. Will continue to hold his diabetic meds for today and follow-up with fingersticks and encourage p.o. intake. Heme Anemia- near baseline, monitor DVT proph- on heparin 7500 q8 Thrombocytopenia- no active bleeding, ? 2/2 infections ID Cellulitis-patient appears to have an area of cellulitis on his left distal lower extremity. He has been started on ceftriaxone. case d/w ICU team d/w nephrology labs, imaging, records reviewed ~ 45min required for evaluation, exam, review, intervention, discussion formation plan of care Provider Notation Provider Notation: Although this document has been carefully reviewed, there may still be some phonetic and other typographical errors. These errors are purely grammatical due to imperfections in the software program and should not be construed in any way to compromise the substance of the patient's medical care during this visit. Thank you for the opportunity and privilege in assisting you with this patient's care and management.
[2025-05-06 14:08] LABS: Albumin, Serum 3.5 gm/dL (3.4-4.8); Anion Gap 11 (7-16); BUN/Creatinine Ratio 20 Ratio (12-20); Blood Urea Nitrogen 67 mg/dL (9-23); Calcium 9.1 mg/dL (8.3-10.6); Calcium (Corrected) 9.5 mg/dL (8.5-10.1); Carbon Dioxide 18.8 mMol/L (20.0-31.0); Chloride 114 mMol/L (98-107); Creatinine (Component) 3.3 mg/dL (0.6-1.3); Estimated Creatinine Clearance 32.6 mL/min (>60); Glucose 119 mg/dL (74-106); Osmolality,Calculated 307 (275-295); Phosphorous 5.6 mg/dL (2.4-5.1); Sodium 144 mMol/L (136-145); eGFR 19 See Note
[2025-05-06 14:18] LABS: Potassium 6.1 mMol/L (3.4-5.1)
[2025-05-06] MEDS: LACTULOSE SYRUP 20 GM/30 ML UDC 30 GM PO (14:44)
--- NOTE | 2025-05-06 14:47 | PC.SS ---
GROCERY STORE CLERK conducted bedside contact with the patient conduct initial assessment and to discuss discharge planning.? Patient confirmed demographic information.? Patient resides at home with spouse, Vicky Amezcua .? Patient utilizes a walker to assist with ambulation.? Patient does not utilize home oxygen.? Patient requires assistance with completion of ADL?s.? Patient?s surrogate medical decision maker is spouse, Vicky Amezcua.? Patient?s PCP is Dr. Vines.? Patient does not possess any specialty providers.? Patient utilizes [facility] for medication services.? If physical therapy recommends SNF placement patient receptive to plan.? If home health recommended no preferred agency identified.? Patient will require assistance with transportation upon discharge.? No further discharge needs identified by the patient.? No further intervention required at this time, forensic social worker will be available to address any further concerns.? Next of Kin: Vicky Seven D/C Plan: Pending
--- NOTE | 2025-05-06 14:49 | PC.SS ---
Update: If SNF recommended preferred SNF is [facility].
--- NOTE | 2025-05-06 15:11 | ESPR_ITS ---
<Statement entered by Yesi Hopson MD - 05/16/25 09:20> I reviewed above note and agree with findings and plans. I have also personally examined the patient with medicine team and went over assessment and plan with medical team including international recruiter and resident physician. Documentation for date of: 05/06/25 Subjective Subjective Interval history: A 69-year-old male with a complex medical history, including heart failure with preserved HFpEF, A-fib, CAD status post CABG in 2018, DVT of the left lower extremit, ischemic colitis with colostomy, and insulin-dependent diabetes, presented to the emergency department on 05/05/2025 with hypoglycemia, hypothermia, and hyperkalemia. The patient had taken insulin before breakfast and subsequently fell while in the restroom, with his calling for an ambulance. Upon arrival, the patient had a glucose level of 40, a body temperature of 88?F, and a potassium level of 6.8. Immediate interventions included a Terry hugger for rewarming, hyperkalemia cocktail and transient on D10. In the emergency department, his vital signs included a HR 38, BP 162/70, BUN 65, CR 2.9, AST 51, ALT 53. CXR showed left basilar pneumonia, EKG showed bradycardia without acute ST changes. Initially, he was admitted for telemetry but subsequently upgraded to ICU given the need for D10 and Terry hugger. In ICU, AMIODARONE and ELIQUIS were restarted and home antihypertensives and statin therapy was continued. He was also given a second hyperkalemia cocktail along with potassium binders. He has CKD 3B, however current renal function appears to be stage IV, currently being managed by gentle hydration. Nephrology, is also on board. Of note, his home ELIQUIS was held in preparation for dialysis line. However, nephrology is not planning on HD at this time. Will resume ELIQUIS. ICU was concern for adrenal sufficiency given hyperthermia, hypoglycemia, and hyperkalemia for which she was given a dose of HYDROCORTISONE. However, adrenal insufficiency remains uncertain and unlikely. His symptoms are likely explained for the reasons above. HYDROCORTISONE was held at this point. Will continue to monitor electrolytes and symptoms and will consider serum CORTISOL measures. Patient otherwise feels well today, not complaining of any chest pain or shortness of breath. Also denies fatigue, fever, chills or heat or cold intolerance. Vitals otherwise stable. For the time being, the plan is to continue treating hyperkalemia, managing JULIAN on CKD with the help of nephrology, and also continue with ANTIBIOTICS for cellulitis of left lower extremity. Exam Vital Signs Temp Pulse Resp BP Pulse Ox O2 Del Method 97.6 F 74 8 L 117/45 L 97 Room Air 05/06/25 08:00 05/06/25 13:15 05/06/25 13:15 05/06/25 13:15 05/06/25 13:15 05/05/25 20:13 Narrative Exam GENERAL * Ill-appearing male, no apparent distress, satting well on room air. HEENT * NCAT.?FAIZA. Oral mucosa is moist. Patent Nares NECK * Supple, nontender, no JVD. CHEST * RRR, no m/g/r * CTAB, no w/r/r, symmetrical expansion. ABDOMEN * Soft, flat, nontender. No guarding/rebound tenderness/masses. * Bowel sounds presents EXTREMITIES * No edema/cyanosis.? SKIN * Warm and dry, no jaundice/rashes. * Large left distal lower extremity cellulitis which appears to be receding NEUROMUSCULAR * Moves all 4 extremities well, with full ROM and good CSM. * RAMOS x4, CN II-XII grossly intact. * No focal neurologic deficits. PSYCHIATRY * Normal mood and affect, cooperative, no SI or HI or hallucinations. Objective Labs 05/06/25 04:35 05/06/25 13:03 Labs: Laboratory Results - last 24 hr 05/05/25 05/05/25 05/05/25 15:05 16:52 17:55 WBC 7.0 RBC 3.33 L Hgb 10.3 L Hct 33.1 L MCV 99 MCH 30.9 MCHC 31.1 RDW Std Deviation 59.3 H Plt Count 82 L Neut % (Auto) 55 Lymph % (Auto) 34 [place] % (Auto) 7 Eos % (Auto) 2 Baso % (Auto) 1 Neut # (Auto) 3.8 Lymph # (Auto) 2.4 [place] # (Auto) 0.5 Eos # (Auto) 0.1 Baso # (Auto) 0.0 Immature Gran # (Auto) 0.11 H Absolute Nucleated RBC 0.04 H Immature Gran % 2 H Nucleated RBC % 1 H PT 12.2 INR 1.2 VBG pH VBG pCO2 VBG pO2 VBG O2 Sat (Mel) VBG Base Excess Sodium 145 Potassium 6.8 H* Chloride 117 H Carbon Dioxide 19.3 L Anion Gap 9 BUN 65 H Creatinine 2.9 H Estim Creat Clear Calc 33.4 L eGFR 22 L BUN/Creatinine Ratio 22 H Glucose 85 Calculated Osmolality 306 H Lactic Acid 1.1 Calcium 8.9 Corrected Calcium 9.0 Phosphorus Magnesium Total Bilirubin 0.4 AST 51 H ALT 53 H Alkaline Phosphatase 84 Troponin I < 0.020 Total Protein 6.4 Albumin 3.9 Globulin 2.5 Albumin/Globulin Ratio 1.6 Triglycerides Cholesterol LDL Cholesterol, Calc HDL Cholesterol Cholesterol/HDL Ratio Procalcitonin TSH Free T4 Ur Collection Type Urine Color Urine Clarity Urine pH Ur Specific [place] Urine Protein Urine Glucose (UA) Urine Ketones Urine Blood Urine Nitrite Urine Bilirubin Urine Urobilinogen (Auto) Ur Leukocyte Esterase Urine RBC Urine WBC Ur Squamous Epith Cells Urine Bacteria Hyaline Casts SARS-CoV-2 Ag (Rapid) Misc Test Result 05/05/25 05/05/25 05/05/25 19:19 20:26 20:37 WBC RBC Hgb Hct MCV MCH MCHC RDW Std Deviation Plt Count Neut % (Auto) Lymph % (Auto) [place] % (Auto) Eos % (Auto) Baso % (Auto) Neut # (Auto) Lymph # (Auto) [place] # (Auto) Eos # (Auto) Baso # (Auto) Immature Gran # (Auto) Absolute Nucleated RBC Immature Gran % Nucleated RBC % PT INR VBG pH 7.35 VBG pCO2 35 L VBG pO2 112 H VBG O2 Sat (Mel) 99 H VBG Base Excess -6 L Sodium 147 H Potassium 5.8 H D Chloride 116 H Carbon Dioxide 20.7 Anion Gap 10 BUN 67 H Creatinine 3.0 H Estim Creat Clear Calc 32.3 L eGFR 22 L BUN/Creatinine Ratio 22 H Glucose 78 Calculated Osmolality 310 H Lactic Acid Calcium 9.6 Corrected Calcium 9.9 Phosphorus 6.6 H Magnesium Total Bilirubin AST ALT Alkaline Phosphatase Troponin I Total Protein Albumin 3.6 Globulin Albumin/Globulin Ratio Triglycerides Cholesterol LDL Cholesterol, Calc HDL Cholesterol Cholesterol/HDL Ratio Procalcitonin TSH Free T4 Ur Collection Type Clean Catch Urine Color Lt-Yellow Urine Clarity Clear Urine pH 5.5 Ur Specific [place] 1.019 Urine Protein 1+ A Urine Glucose (UA) Negative Urine Ketones Negative Urine Blood Trace Urine Nitrite Negative Urine Bilirubin Negative Urine Urobilinogen (Auto) Negative Ur Leukocyte Esterase Negative Urine RBC 18 H Urine WBC 5 Ur Squamous Epith Cells 1 Urine Bacteria None Hyaline Casts 1 SARS-CoV-2 Ag (Rapid) Negative Misc Test Result 05/05/25 05/06/25 05/06/25 23:41 04:35 08:31 WBC 6.9 RBC 2.92 L Hgb 9.1 L Hct 28.6 L MCV 98 MCH 31.2 MCHC 31.8 RDW Std Deviation 57.1 H Plt Count 78 L Neut % (Auto) 76 Lymph % (Auto) 16 [place] % (Auto) 6 Eos % (Auto) 0 Baso % (Auto) 1 Neut # (Auto) 5.2 Lymph # (Auto) 1.1 [place] # (Auto) 0.4 Eos # (Auto) 0.0 Baso # (Auto) 0.0 Immature Gran # (Auto) 0.08 H Absolute Nucleated RBC 0.05 H Immature Gran % 1 H Nucleated RBC % 1 H PT INR VBG pH VBG pCO2 VBG pO2 VBG O2 Sat (Mel) VBG Base Excess Sodium 145 143 Potassium 7.3 H* D 6.9 H* Chloride 116 H 115 H Carbon Dioxide 18.8 L 17.7 L Anion Gap 10 10 BUN 54 H 61 H Creatinine 3.1 H 3.2 H Estim Creat Clear Calc 31.2 L 33.6 L eGFR 21 L 20 L BUN/Creatinine Ratio 17 19 Glucose 89 175 H D Calculated Osmolality 302 H 306 H Lactic Acid 0.8 Calcium 8.9 8.6 Corrected Calcium 9.2 9.0 Phosphorus 5.4 H Magnesium 1.6 Total Bilirubin 0.3 AST 39 H ALT 46 Alkaline Phosphatase 76 Troponin I 0.079 H* Total Protein 5.8 Albumin 3.6 3.5 Globulin 2.2 L Albumin/Globulin Ratio 1.6 Triglycerides 45 Cholesterol 122 L LDL Cholesterol, Calc 54 HDL Cholesterol 59 Cholesterol/HDL Ratio 2.1 L Procalcitonin 0.20 TSH 3.30 Free T4 1.21 Ur Collection Type Urine Color Urine Clarity Urine pH Ur Specific [place] Urine Protein Urine Glucose (UA) Urine Ketones Urine Blood Urine Nitrite Urine Bilirubin Urine Urobilinogen (Auto) Ur Leukocyte Esterase Urine RBC Urine WBC Ur Squamous Epith Cells Urine Bacteria Hyaline Casts SARS-CoV-2 Ag (Rapid) Misc Test Result Platelets confirmed 05/06/25 13:03 WBC RBC Hgb Hct MCV MCH MCHC RDW Std Deviation Plt Count Neut % (Auto) Lymph % (Auto) [place] % (Auto) Eos % (Auto) Baso % (Auto) Neut # (Auto) Lymph # (Auto) [place] # (Auto) Eos # (Auto) Baso # (Auto) Immature Gran # (Auto) Absolute Nucleated RBC Immature Gran % Nucleated RBC % PT INR VBG pH VBG pCO2 VBG pO2 VBG O2 Sat (Mel) VBG Base Excess Sodium 144 Potassium 6.1 H* D Chloride 114 H Carbon Dioxide 18.8 L Anion Gap 11 BUN 67 H Creatinine 3.3 H Estim Creat Clear Calc 32.6 L eGFR 19 L BUN/Creatinine Ratio 20 Glucose 119 H D Calculated Osmolality 307 H Lactic Acid Calcium 9.1 Corrected Calcium 9.5 Phosphorus 5.6 H Magnesium Total Bilirubin AST ALT Alkaline Phosphatase Troponin I Total Protein Albumin 3.5 Globulin Albumin/Globulin Ratio Triglycerides Cholesterol LDL Cholesterol, Calc HDL Cholesterol Cholesterol/HDL Ratio Procalcitonin TSH Free T4 Ur Collection Type Urine Color Urine Clarity Urine pH Ur Specific [place] Urine Protein Urine Glucose (UA) Urine Ketones Urine Blood Urine Nitrite Urine Bilirubin Urine Urobilinogen (Auto) Ur Leukocyte Esterase Urine RBC Urine WBC Ur Squamous Epith Cells Urine Bacteria Hyaline Casts SARS-CoV-2 Ag (Rapid) Misc Test Result ABG Interpretation ABG results: 05/05/25 20:37 VBG pH 7.35 VBG pCO2 35 L VBG pO2 112 H VBG Base Excess -6 L Quality Measures Quality Measures none Advance care planning discussed with:: patient Assessment & Plan Assessment Current Active Medications: Generic Name Dose Route Start Last Admin Trade Name Freq PRN Reason Stop Dose Admin Acetaminophen 650 mg 05/05/25 19:24 Acetaminophen 325 Mg Tablet PO 06/04/25 19:23 Q6H PRN Fever >101.5 Amiodarone HCl 200 mg 05/06/25 09:00 05/06/25 08:43 Amiodarone Hcl 200 Mg Tablet PO 06/05/25 08:59 200 mg DAILY CINDI Administration Amlodipine Besylate 5 mg 05/06/25 09:00 05/06/25 08:46 Amlodipine Besylate 5 Mg Tablet PO 06/05/25 08:59 5 mg DAILY CINDI Administration Atorvastatin Calcium 10 mg 05/06/25 21:00 Atorvastatin Calcium 10 Mg Tablet PO 06/05/25 20:59 HS CINDI Balsam [place] Oil 0 gm 05/06/25 10:00 Balsam [place] Oil (Venelex) 60 Gm Tube TOP 06/05/25 09:59 BID CINDI Calcitriol 0.5 mcg 05/06/25 09:00 05/06/25 08:48 Calcitriol 0.25 Mcg Capsule PO 06/05/25 08:59 0.5 mcg QDAY CINDI Administration Clotrimazole 0 gm 05/06/25 10:00 Clotrimazole Cr 1% 30 Gm Tube TOP 06/05/25 09:59 BID CINDI Ferrous Sulfate 325 mg 05/06/25 09:00 05/06/25 08:43 Ferrous Sulf 325 Mg Tablet PO 06/05/25 08:59 325 mg QDAY CINDI Administration Heparin Sodium (Porcine) 7,500 unit 05/06/25 22:00 Heparin Sod Inj 5000 Unit/Ml Vial SC 05/20/25 21:59 Q8HR CINDI Ceftriaxone Sodium/Dextrose 1 gm in 50 mls @ 100 mls/hr 05/06/25 09:35 05/06/25 09:52 Rocephin/D5w 1gm Iv Premix IV 05/13/25 09:34 100 mls/hr QDAY CINDI Administration Influenza Virus Vaccine Quadrival 0.5 ml 05/08/25 09:00 Influenza Virus 0.5 Ml Syringe IMi 05/08/25 09:01 .ONCE ONE Sevelamer Carbonate 800 mg 05/06/25 08:00 05/06/25 13:40 Sevelamer Carbonate 800 Mg Tablet PO 06/05/25 07:59 800 mg TIDWM CINDI Administration Sodium Chloride 3 ml 05/05/25 18:08 05/06/25 06:47 Sodium Chloride Rt Apryl 0.9% 3 Ml Nebu INH 06/04/25 18:07 3 ml PRN PRN Administration SOLN Vitamin B Complex/Vit C/Folic Acid 1 tab 05/06/25 09:00 05/06/25 08:43 Vit B12/Vit C/Fa (Nephrovite) Tablet PO 06/05/25 08:59 1 tab QDAY CINDI Administration Plan A 69-year-old male with HFpEF, A-fib, CAD, DVT, ischemic colitis, and insulin- dependent diabetes presented with hypoglycemia, hypothermia, and hyperkalemia after a fall. On arrival, his glucose was 40, temperature 88?F, and potassium 6.8. He was treated with rewarming, hyperkalemia cocktails, and D10, and admitted to the ICU for monitoring. His medications were resumed, and JULIAN is being managed medically with the help of Nephrology team. Acute metabolic encephalopathy (resolving) Concern for adrenal insufficiency Per admission note, he presented with nausea and spacing out, likely in settings of uremia, hypoglycemia, hypothermia and bradycardia. There may be a infectious component given cellulitis, however currently he is aseptic with normal lactic acid since admission, UA is negative for UTI. Other underlying causes ruled out including acute blood loss, relatively normal blood gas, and normal thyroid function. No focal neurological deficits noted on exam, low suspicion for CVA and CT head was deferred. Radiology Technician team had concerns for adrenal sufficiency, appropriately given above-mentioned electrolyte abnormality and bradycardia. He was given a trial of STEROIDS which are currently held. Will continue to monitor and consider CORTISOL measures as needed. Symptoms appear to have resolved. Currently he feels slightly weak but otherwise alert and oriented x 4 and tolerating oral intake without current complaint. ? Monitoring and treating underlying cause Severe hyperkalemia Recurrent hyperkalemia Hyperphosphatemia Admission potassium 7.[address] changes on EKG. Likely worsening renal function as he is on home SEVELAMER. He was given a round of cocktail with slight improvement of potassium to 6.8. ICU also given another round of hyperkalemia cocktail. Most recent potassium remains elevated at 6.1. Admission phosphorus 6.6, improved to 5.6 with SEVELAMER. ? Repeat potassium ? Continue SEVELAMER 800 mg TID ? Gave another dose of KAYAXELATE 30 mg ? Gave another dose of PATIROMER 8.5 mg ? Gave another dose of ALBUTEROL 1amp. JULIAN on CKD His history of CKD 3B and follows up with Dr. Vines outpatient. On presentation, renal function appears stage IV, likely dehydration vs. overall worsening renal function. Will continue with medical management following nephrology recommendations. Nephrology however maybe planning for HD soon, pending further recommendations. ? Renally dose meds, avoid overdiuresis and NEPHROTOXINS ? Daily CMP Acute hypoglycemia (resolved) IDDM On admission, GLUCOSE 30s requiring D10 drip and ICU admission. Presentation to have preceded home INSULIN injection. However there may be a component of poor eating as he reports intolerance to low-carb diet. Currently off D10, blood GLUCOSE within normal limits. A1c 5.4 from 10/2024. Unclear he needs INSULIN regimen going forward, and will need better glycemic control prior to discharge. ? Carb consistent diet ? Avoid hypoglycemia ? INSULIN sliding scale ? Accu-Cheks ? Pending recommendations from registered dietitian Paroxysmal atrial fibrillation, rate controlled Chronic, currently in sinus rhythm, rate controlled. ? Holding home ELIQUIS 2.5 mg BID in preparation for HD cath ? Continue HEPARIN 7500 mg TID (hold at midnight) ? Continue home AMIODARONE 200 mg daily Acute on chronic anemia Likely CKD, hemoglobin 9.1 near baseline. No signs or symptoms of abnormal bleed. ? Continue to monitor ? Continue FERROUS SULFATE 325 mg daily LLE cellulitis History of DVT Presents with distal left lower extremity cellulitis which appears to be preceding with current ANTIBIOTICS. Remains aseptic. ? Continue CEFTRIAXONE ? Continue home ELIQUIS Bradycardia (resolved) HTN HLD He had a single, no recurrent episode of bradycardia at 57, EKG showed heart rate [address] changes. ? Continue monitoring ? Continue home AMLODIPINE 5 mg daily ? Continue home ATORVASTATIN 10 mg HS Cough Reports mild cough which appears to have improving. Less suspicion for pneumonia based on CXR. He received a dose of CEFTRIAXONE and DOXYCYCLINE. Other chronic problems: HFpEF (stable) CAD s/p CABG 2018 (stable) Hx ischemic colitis, s/p PEG tube (stable) No signs of CHF exacerbation. ? Continue monitoring Health maintenance Diet: CHO consistent GI prophylaxis: Not indicated DVT prophylaxis: HEPARIN Antibiotics: CEFTRIAXONE CODE STATUS: Full code Disposition: Treating JULIAN/CKD, hyperkalemia, hyperglycemia. Case was discussed with attending physician. Angela Villagomez DO PGY II This document was transcribed using voice recognition technology. Minor inaccuracies may be present.
--- NOTE | 2025-05-06 15:36 | PD.RESPRO ---
Documentation for date of: 05/06/25 Subjective Subjective Interval history: 05/06/2025 HPI Narrative Mr. Amezcua is a 69-year-old male with history of Heart failure preserved ejection fraction, A-fib, CAD status post CABG in 2018, DVT left lower extremity, ischemic colitis status post colostomy at [facility], insulin-dependent diabetes on 50 units presented to the ED around 1 PM with hypoglycemia and hypothermia. Per patient's and patient, patient was following his normal routine of waking up at 10 AM and went to the restroom. After sitting on his commode, patient was unable to get off the commode. At 10:10 AM patient's found him looking spacey and lethargic. She also noticed that he was ice cold to touch. She took a blood sugar which was 89 and after a glass of juice repeat blood glucose was 5910 minutes later. She decided to call the ambulance at 11 AM to bring him to the hospital. Patient states that he only felt wobbly, mild cough and weak the day prior however denies any other symptoms of nausea, vomiting, headache, body aches, fevers, chills, or recent travel. ED course: Significant vitals on arrival: Blood pressure 162/70, heart rate of 38, temperature of 88 ?F; significant labs for low glucose of 40, elevated BUN at 65, bicarb 19.3, creatinine 2.9, elevated LFTs Imaging: Chest x-ray showed early pneumonia left base, EKG showed bradycardia rate of [address] segment changes In the ED: Terry fernandez, Patient received dextrose, albuterol 15 mg, calcium chloride 10 mg, 50 mill EQ of sodium bicarb, 8 units of insulin, 2 g ceftriaxone, sodium polystyrene sulfonate 15 GM p.o. x 1 Patient was initially admitted to telemetry for further management of patient's hypothermia and hypoglycemia however despite being on D10 at 50 mL/hr dropped from 1 25-78 despite eating 2 puddings. At this time, patient will be upgraded to ICU for further close monitoring for patient's hypothermia and hypoglycemia. 05/06/2025: Pt examined at bedside today. No acute overnight events. Pt reiterates that he takes Xultophy at home and has not changed his doses. He denies taking any glipizide. He has never had any issues with temperatures or has ever been hypothermic. He also states he was having a bit chest pain. His labs today include a potassium of 7.3, BUN/Cr 54 and 3.1 respectively. His VBG shows a pH of 7.35. UOP 970 cc past 24 hr. 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 and R foot appears to have fungal material, LLE near mid brady shows erythematous region that appears to be warm, areas have been marked Neuro: AAOx3, no focal motor or sensory deficits in the UE or LE bilat Psych: Cooperative Objective Labs 05/07/25 04:24 05/07/25 04:24 Labs: Laboratory Results - last 24 hr 05/05/25 05/05/25 05/05/25 15:05 16:52 17:55 WBC 7.0 RBC 3.33 L Hgb 10.3 L Hct 33.1 L MCV 99 MCH 30.9 MCHC 31.1 RDW Std Deviation 59.3 H Plt Count 82 L Neut % (Auto) 55 Lymph % (Auto) 34 [place] % (Auto) 7 Eos % (Auto) 2 Baso % (Auto) 1 Neut # (Auto) 3.8 Lymph # (Auto) 2.4 [place] # (Auto) 0.5 Eos # (Auto) 0.1 Baso # (Auto) 0.0 Immature Gran # (Auto) 0.11 H Absolute Nucleated RBC 0.04 H Immature Gran % 2 H Nucleated RBC % 1 H PT 12.2 INR 1.2 VBG pH VBG pCO2 VBG pO2 VBG O2 Sat (Mel) VBG Base Excess Sodium 145 Potassium 6.8 H* Chloride 117 H Carbon Dioxide 19.3 L Anion Gap 9 BUN 65 H Creatinine 2.9 H Estim Creat Clear Calc 33.4 L eGFR 22 L BUN/Creatinine Ratio 22 H Glucose 85 Calculated Osmolality 306 H Lactic Acid 1.1 Calcium 8.9 Corrected Calcium 9.0 Phosphorus Magnesium Total Bilirubin 0.4 AST 51 H ALT 53 H Alkaline Phosphatase 84 Troponin I < 0.020 Total Protein 6.4 Albumin 3.9 Globulin 2.5 Albumin/Globulin Ratio 1.6 Triglycerides Cholesterol LDL Cholesterol, Calc HDL Cholesterol Cholesterol/HDL Ratio Procalcitonin TSH Free T4 Ur Collection Type Urine Color Urine Clarity Urine pH Ur Specific [place] Urine Protein Urine Glucose (UA) Urine Ketones Urine Blood Urine Nitrite Urine Bilirubin Urine Urobilinogen (Auto) Ur Leukocyte Esterase Urine RBC Urine WBC Ur Squamous Epith Cells Urine Bacteria Hyaline Casts SARS-CoV-2 Ag (Rapid) Misc Test Result 05/05/25 05/05/25 05/05/25 19:19 20:26 20:37 WBC RBC Hgb Hct MCV MCH MCHC RDW Std Deviation Plt Count Neut % (Auto) Lymph % (Auto) [place] % (Auto) Eos % (Auto) Baso % (Auto) Neut # (Auto) Lymph # (Auto) [place] # (Auto) Eos # (Auto) Baso # (Auto) Immature Gran # (Auto) Absolute Nucleated RBC Immature Gran % Nucleated RBC % PT INR VBG pH 7.35 VBG pCO2 35 L VBG pO2 112 H VBG O2 Sat (Mel) 99 H VBG Base Excess -6 L Sodium 147 H Potassium 5.8 H D Chloride 116 H Carbon Dioxide 20.7 Anion Gap 10 BUN 67 H Creatinine 3.0 H Estim Creat Clear Calc 32.3 L eGFR 22 L BUN/Creatinine Ratio 22 H Glucose 78 Calculated Osmolality 310 H Lactic Acid Calcium 9.6 Corrected Calcium 9.9 Phosphorus 6.6 H Magnesium Total Bilirubin AST ALT Alkaline Phosphatase Troponin I Total Protein Albumin 3.6 Globulin Albumin/Globulin Ratio Triglycerides Cholesterol LDL Cholesterol, Calc HDL Cholesterol Cholesterol/HDL Ratio Procalcitonin TSH Free T4 Ur Collection Type Clean Catch Urine Color Lt-Yellow Urine Clarity Clear Urine pH 5.5 Ur Specific [place] 1.019 Urine Protein 1+ A Urine Glucose (UA) Negative Urine Ketones Negative Urine Blood Trace Urine Nitrite Negative Urine Bilirubin Negative Urine Urobilinogen (Auto) Negative Ur Leukocyte Esterase Negative Urine RBC 18 H Urine WBC 5 Ur Squamous Epith Cells 1 Urine Bacteria None Hyaline Casts 1 SARS-CoV-2 Ag (Rapid) Negative Misc Test Result 05/05/25 05/06/25 05/06/25 23:41 04:35 08:31 WBC 6.9 RBC 2.92 L Hgb 9.1 L Hct 28.6 L MCV 98 MCH 31.2 MCHC 31.8 RDW Std Deviation 57.1 H Plt Count 78 L Neut % (Auto) 76 Lymph % (Auto) 16 [place] % (Auto) 6 Eos % (Auto) 0 Baso % (Auto) 1 Neut # (Auto) 5.2 Lymph # (Auto) 1.1 [place] # (Auto) 0.4 Eos # (Auto) 0.0 Baso # (Auto) 0.0 Immature Gran # (Auto) 0.08 H Absolute Nucleated RBC 0.05 H Immature Gran % 1 H Nucleated RBC % 1 H PT INR VBG pH VBG pCO2 VBG pO2 VBG O2 Sat (Mel) VBG Base Excess Sodium 145 143 Potassium 7.3 H* D 6.9 H* Chloride 116 H 115 H Carbon Dioxide 18.8 L 17.7 L Anion Gap 10 10 BUN 54 H 61 H Creatinine 3.1 H 3.2 H Estim Creat Clear Calc 31.2 L 33.6 L eGFR 21 L 20 L BUN/Creatinine Ratio 17 19 Glucose 89 175 H D Calculated Osmolality 302 H 306 H Lactic Acid 0.8 Calcium 8.9 8.6 Corrected Calcium 9.2 9.0 Phosphorus 5.4 H Magnesium 1.6 Total Bilirubin 0.3 AST 39 H ALT 46 Alkaline Phosphatase 76 Troponin I 0.079 H* Total Protein 5.8 Albumin 3.6 3.5 Globulin 2.2 L Albumin/Globulin Ratio 1.6 Triglycerides 45 Cholesterol 122 L LDL Cholesterol, Calc 54 HDL Cholesterol 59 Cholesterol/HDL Ratio 2.1 L Procalcitonin 0.20 TSH 3.30 Free T4 1.21 Ur Collection Type Urine Color Urine Clarity Urine pH Ur Specific [place] Urine Protein Urine Glucose (UA) Urine Ketones Urine Blood Urine Nitrite Urine Bilirubin Urine Urobilinogen (Auto) Ur Leukocyte Esterase Urine RBC Urine WBC Ur Squamous Epith Cells Urine Bacteria Hyaline Casts SARS-CoV-2 Ag (Rapid) Misc Test Result Platelets confirmed 05/06/25 13:03 WBC RBC Hgb Hct MCV MCH MCHC RDW Std Deviation Plt Count Neut % (Auto) Lymph % (Auto) [place] % (Auto) Eos % (Auto) Baso % (Auto) Neut # (Auto) Lymph # (Auto) [place] # (Auto) Eos # (Auto) Baso # (Auto) Immature Gran # (Auto) Absolute Nucleated RBC Immature Gran % Nucleated RBC % PT INR VBG pH VBG pCO2 VBG pO2 VBG O2 Sat (Mel) VBG Base Excess Sodium 144 Potassium 6.1 H* D Chloride 114 H Carbon Dioxide 18.8 L Anion Gap 11 BUN 67 H Creatinine 3.3 H Estim Creat Clear Calc 32.6 L eGFR 19 L BUN/Creatinine Ratio 20 Glucose 119 H D Calculated Osmolality 307 H Lactic Acid Calcium 9.1 Corrected Calcium 9.5 Phosphorus 5.6 H Magnesium Total Bilirubin AST ALT Alkaline Phosphatase Troponin I Total Protein Albumin 3.5 Globulin Albumin/Globulin Ratio Triglycerides Cholesterol LDL Cholesterol, Calc HDL Cholesterol Cholesterol/HDL Ratio Procalcitonin TSH Free T4 Ur Collection Type Urine Color Urine Clarity Urine pH Ur Specific [place] Urine Protein Urine Glucose (UA) Urine Ketones Urine Blood Urine Nitrite Urine Bilirubin Urine Urobilinogen (Auto) Ur Leukocyte Esterase Urine RBC Urine WBC Ur Squamous Epith Cells Urine Bacteria Hyaline Casts SARS-CoV-2 Ag (Rapid) Misc Test Result ABG Interpretation ABG results: 05/05/25 20:37 VBG pH 7.35 VBG pCO2 35 L VBG pO2 112 H VBG Base Excess -6 L Quality Measures Quality Measures none Advance care planning discussed with:: patient Assessment & Plan Assessment Current Active Medications: Generic Name Dose Route Start Last Admin Trade Name Eran PRN Reason Stop Dose Admin Acetaminophen 650 mg 05/05/25 19:24 Acetaminophen 325 Mg Tablet PO 06/04/25 19:23 Q6H PRN Fever >101.5 Amiodarone HCl 200 mg 05/06/25 09:00 05/06/25 08:43 Amiodarone Hcl 200 Mg Tablet PO 06/05/25 08:59 200 mg DAILY CINDI Administration Amlodipine Besylate 5 mg 05/06/25 09:00 05/06/25 08:46 Amlodipine Besylate 5 Mg Tablet PO 06/05/25 08:59 5 mg DAILY CINDI Administration Atorvastatin Calcium 10 mg 05/06/25 21:00 Atorvastatin Calcium 10 Mg Tablet PO 06/05/25 20:59 HS CINDI Balsam Madhuri/[place] Oil 0 gm 05/06/25 10:00 Balsam [place] Oil (Venelex) 60 Gm Tube TOP 06/05/25 09:59 BID CINDI Calcitriol 0.5 mcg 05/06/25 09:00 05/06/25 08:48 Calcitriol 0.25 Mcg Capsule PO 06/05/25 08:59 0.5 mcg QDAY CINDI Administration Clotrimazole 0 gm 05/06/25 10:00 Clotrimazole Cr 1% 30 Gm Tube TOP 06/05/25 09:59 BID CINDI Ferrous Sulfate 325 mg 05/06/25 09:00 05/06/25 08:43 Ferrous Sulf 325 Mg Tablet PO 06/05/25 08:59 325 mg QDAY CINDI Administration Heparin Sodium (Porcine) 7,500 unit 05/06/25 22:00 Heparin Sod Inj 5000 Unit/Ml Vial SC 05/20/25 21:59 Q8HR CINDI Ceftriaxone Sodium/Dextrose 1 gm in 50 mls @ 100 mls/hr 05/06/25 09:35 05/06/25 09:52 Rocephin/D5w 1gm Iv Premix IV 05/13/25 09:34 100 mls/hr QDAY CINDI Administration Influenza Virus Vaccine Quadrival 0.5 ml 05/08/25 09:00 Influenza Virus 0.5 Ml Syringe IMi 05/08/25 09:01 .ONCE ONE Sevelamer Carbonate 800 mg 05/06/25 08:00 05/06/25 13:40 Sevelamer Carbonate 800 Mg Tablet PO 06/05/25 07:59 800 mg TIDWM CINDI Administration Sodium Chloride 3 ml 05/05/25 18:08 05/06/25 06:47 Sodium Chloride Rt Apryl 0.9% 3 Ml Nebu INH 06/04/25 18:07 3 ml PRN PRN Administration SOLN Vitamin B Complex/Vit C/Folic Acid 1 tab 05/06/25 09:00 05/06/25 08:43 Vit B12/Vit C/Fa (Nephrovite) Tablet PO 06/05/25 08:59 1 tab QDAY CINDI Administration Plan Plan Mr. Amezcua is a 69-year-old male with history of Heart failure preserved ejection fraction, A-fib, CAD status post CABG in 2018, DVT left lower extremity, ischemic colitis status post colostomy at [facility], insulin-dependent diabetes on 50 units presented to the ED around 1 PM with hypoglycemia and hypothermia and admitted to telemetry for further management. At this time, patient will be upgraded to ICU for further close monitoring for patient's hypothermia and hypoglycemia. NEURO #Altered mentation-resolved Per patient's , patient appeared to be spacey and lethargic, now improved but still at risk for encephalopathy from hypoglycemia, hypothermia, and possible sepsis, but less likely -Monitor neuro checks -Assess for any toxic/metabolic encephalopathy (review medications, insulin doses, possible narcotics or sedatives) -Continue active rewarming with Terry hugger until normothermic -Consider CT head imaging if mental status worsens CARDIO #Hypothermia, resolved T = 88?F on arrival DDx:Possible sepsis, hypoglycemia, adrenal insuficiency, hypothyroid Could be related to infection, thyroid is normal, check Endo for explanation of adrenal insufficiency Temperature back to wnl without Terry Hugger #History of Heart failure with preserved ejection fraction (HFpEF) #CAD s/p CABG 2018 #A-fib #DVT -Continue with home amiodarone 200 mg daily as bradycardia is resolved and Eliquis 2.5 mg twice a day -Continue with home amlodipine 5mg #Bradycardia- resolved DDx: likely due to hypothermia, hypoglycemia, and electrolyte imbalances (possible hyperkalemia) -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 CXR showed possible/questionable left base PNA However patient's has a lack of systemic signs such as fever, body aches, chills except for some weakness Patient given Ceftriaxone 2g x1 and Doxycycline 100mg x 1 -Will discontinue Abx at this time -Will continue to monitor patient's symptoms -Maintain O2 > 94% GI/FEN #S/p colostomy from ischemic colitis-stable RENAL #Hyperkalemia, improving Received Hyperkalemia cocktail after a 6.8 level on ed arrival DDx: Adrenal Insufficiency, RTA, renal failure, See explanation for adrenal insufficiency in endo section. Pt could have RTA with hyperkalemia. Renal failure can also cause hyperkalemia Potassium level of 6.1 at this time Dx: CMP Rx: Albuterol 10 mg, Insulin 5 units IV, Kayexalate 45 gm, Calcium Gluconate 1 g IV RRx: If renal failure persists or if pt has RTA and we dont treat underlying RTA. #NAGMA DDx: Hyperchloremia, RTA, adrenal insufficiency, saline infusion Anion gap of 11, bicarbonate of , pCO2 19 Winter's Formula shows expected bicarbonate of 34-38, appropriately compensated Likely related to either adrenal insufficiency, RTA, or hyperchloremia, see explanation in ENDO section for adrenal insufficiency Dx: CMP, VBG Rx: CMP, Treating Hyperkalemia as above RRx: If pt has RTA or adrenal insufficiency, then the treatment must be augmented. #Acute kidney injury on CKD stage 4 DDx: in the setting of Hyperkalemia Dx: CMP Rx: Avoiding nephrotoxic agents, renally dosing medicines, trend CMP RRx: Patient may need dialysis HEME/ONC #History of DVT Unsure if patient was on intermediate card tender treatment prior to A-fib diagnosis -Continue with Eliquis 2.5mg BID for A-fib for stroke prevention -No acute bleeding reported ENDO #Severe recurrent hypoglycemia, resolved Has never happened before, takes Xultophy but no Glipizide at home. No Changes to medicines. Degludec and GLP-1 unlikely to cause hypoglycemia, however could be accelerated in patient that has infection DDx:Adrenal Insufficiency, medicine overdose, infection related Could be adrenal insufficiency due to patient having persistent hyperkalemia, however sodium and blood pressures have been normal. Pt experienced hypothermia, however it has now resolved. Pt's sx also improved after giving steroids. Dx: Consider Cortisol levels once after steroid given has cleared system. If we send random cortisol level now, it will be elevated since hydrocortisone has already been given Rx: Glucose checks q4h, discontinued D10. RRx: Pt's hypoglycemia may return after stopping steroids ID #Cellulitis Appears to be Red, and erythematous, it has been present for a while according to patient DDx: Cellulitis, OM, erythema nodusum Rx: Rocephin 1 g IV qday (05/06- RRx: May need MRSA coverage if it does not improve MSK #Generalized weakness -Patient stated he had generalized weakness and felt wobbly x 1 day and inability to stand from commode this morning most likely from his hypoglycemia DDx: Hypothermia-induced shivering may cause increased metabolic demand could have also played a role, however, most likely his hypoglycemia lead to his hypothermia -PT/OT when stable -Rewarm with Terry hugger to normal temperature #ICU Health Maintenance: DVT prophylaxis: Heparin Subq q8h GI prophylaxis: None Diet: Carb consistent diet Rowe: Yes Lines: PIV Drips: D10 W CODE STATUS: Full code Disposition: Admitted to ICU for close monitoring for hypothermia and hypoglycemia. Patient seen and care discussed with my attending physician, Dr. Keyon Menon, PGY-2 This document was transcribed using voice recognition technology. Minor inaccuracies may be present
[2025-05-06 17:07] LABS: Troponin I 0.548 ng/mL (0.0-0.045)
[2025-05-06] MEDS: Sodium Bicarb Inj 8.4% SYR 50 ML SYRINGE IV (19:07)
[2025-05-06] MEDS: HEPARIN SOD INJ 5000 UNIT/ML VIAL 7500 UNIT SC (19:29)
[2025-05-06 19:46] LABS: Albumin, Serum 3.8 gm/dL (3.4-4.8); Anion Gap 12 (7-16); BUN/Creatinine Ratio 20 Ratio (12-20); Blood Urea Nitrogen 68 mg/dL (9-23); Calcium 9.3 mg/dL (8.3-10.6); Calcium (Corrected) 9.5 mg/dL (8.5-10.1); Carbon Dioxide 19.8 mMol/L (20.0-31.0); Chloride 114 mMol/L (98-107); Creatinine (Component) 3.4 mg/dL (0.6-1.3); Estimated Creatinine Clearance 31.7 mL/min (>60); Glucose 98 mg/dL (74-106); Osmolality,Calculated 310 (275-295); Phosphorous 6.1 mg/dL (2.4-5.1); Potassium 5.1 mMol/L (3.4-5.1); Sodium 146 mMol/L (136-145); eGFR 19 See Note
[2025-05-06] MEDS: BALSAM PERU/CASTOR OIL (Venelex) 60 GM TUBE TOP (20:55)
[2025-05-06] MEDS: ATORVASTATIN CALCIUM 10 MG TABLET PO (20:55)
[2025-05-06 23:42] LABS: Chloride,Urine Random 23.3 mMol/L (55.0-125.0); Potassium,Urine Random 26 mMol/L (12-62); Sodium,Urine Random 54.5 mMol/L (20.0-110.0)
[2025-05-07] VITALS (10 sets, daily range): BP systolic 123–167; BP diastolic 54–81; PULSE 56–91; RESP 14–23; TEMP 36–36.3; O2SAT 95–99
[2025-05-07] MEDS: HEPARIN SOD INJ 5000 UNIT/ML VIAL 7500 UNIT SC (01:12)
[2025-05-07 05:33] LABS: Basophils # (Auto) 0.1 Thou/mm3 (0.0-0.2); Basophils % (Auto) 1 % (0-2.5); Eosinophils # (Auto) 0.1 Thou/mm3 (0.0-0.5); Eosinophils % (Auto) 1 % (0-10); Hematocrit 27.6 % (41.0-53.0); Hemoglobin 8.7 g/dL (13.5-16.0); Immature Granulocytes Auto 0.08 Thou/mm3 (0.00-0.00); Lymphocytes # (Auto) 3.4 Thou/mm3 (1.0-4.8); Lymphocytes % (Auto) 44 % (10-50); Mean Corpuscular HGB Conc 31.5 g/dl (31.0-37.0); Mean Corpuscular Hemoglobin 30.7 pg (25.0-35.0); Mean Corpuscular Volume 98 fL (80-100); Monocytes # (Auto) 0.6 Thou/mm3 (0.0-0.8); Monocytes % (Auto) 7 % (0-12); Neutrophils # (Auto) 3.5 Thou/mm3 (1.8-7.7); Neutrophils % (Auto) 46 % (37-80); Nucleated Red Blood Cell # 0.04 Thou/mm3 (0.00-0.00); Nucleated Red Blood Cell % 1 /100 WBC (0); RDW Standard Deviation 55.9 fL (35.1-43.9); Red Blood Count 2.83 Miln/mm3 (4.50-5.90); White Blood Count 7.7 Thou/mm3 (3.8-10.6)
[2025-05-07 05:45] LABS: Platelet Count 75 Thou/mm3 (140-440)
[2025-05-07 06:09] LABS: Alanine Aminotransferase 39 U/L (10-49); Albumin, Serum 3.5 gm/dL (3.4-4.8); Albumin/Globulin Ratio 1.6 (1.2-2.2); Alkaline Phosphatase 77 U/L (46-116); Anion Gap 13 (7-16); Aspartate Amino Transferase 37 U/L (0-34); BUN/Creatinine Ratio 22 Ratio (12-20); Bilirubin,Total 0.3 mg/dL (0.3-1.2); Blood Urea Nitrogen 75 mg/dL (9-23); Calcium 9.3 mg/dL (8.3-10.6); Calcium (Corrected) 9.7 mg/dL (8.5-10.1); Carbon Dioxide 20.7 mMol/L (20.0-31.0); Chloride 114 mMol/L (98-107); Creatinine (Component) 3.4 mg/dL (0.6-1.3); Estimated Creatinine Clearance 31.7 mL/min (>60); Globulin 2.2 gm/dL (2.3-3.5); Glucose 101 mg/dL (74-106); Osmolality,Calculated 316 (275-295); Potassium 4.7 mMol/L (3.4-5.1); Sodium 148 mMol/L (136-145); Total Protein 5.7 gm/dL (5.7-8.2); eGFR 19 See Note
[2025-05-07 06:24] LABS: Slide Review Platelets confirmed
[2025-05-07] MEDS: AMIODARONE HCL 200 MG TABLET PO (08:39)
[2025-05-07] MEDS: FERROUS SULF 325 MG TABLET PO (08:42)
[2025-05-07] MEDS: VIT B12/Vit C/FA (Nephrovite) TABLET 1 TAB PO (08:43)
[2025-05-07] MEDS: cefTRIAXone/D5w 1gm IV premix 1 GM/50 ML BAG IV (08:43)
[2025-05-07] MEDS: APIXABAN 2.5 MG TABLET PO ×2 (08:47→20:57)
[2025-05-07] MEDS: BALSAM PERU/CASTOR OIL (Venelex) 60 GM TUBE TOP ×2 (09:01→20:56)
[2025-05-07] MEDS: CLOTRIMAZOLE CR 1% 30 GM TUBE TOP ×2 (09:01→20:57)
[2025-05-07] MEDS: CITRIC ACID/SODIUM CITR 15 ML UDC (BICITRA) 30 ML PO ×2 (10:23→20:56)
--- NOTE | 2025-05-07 11:24 | PD.RESPRO ---
Documentation for date of: 05/07/25 Subjective Subjective Interval history: History of present illness: Mr. Amezcua is a 69-year-old male with history of Heart failure preserved ejection fraction, A-fib, CAD status post CABG in 2018, DVT left lower extremity, ischemic colitis status post colostomy at [facility], insulin-dependent diabetes on 50 units presented to the ED around 1 PM with hypoglycemia and hypothermia. Per patient's and patient, patient was following his normal routine of waking up at 10 AM and went to the restroom. After sitting on his commode, patient was unable to get off the commode. At 10:10 AM patient's found him looking spacey and lethargic. She also noticed that he was ice cold to touch. She took a blood sugar which was 89 and after a glass of juice repeat blood glucose was 5910 minutes later. She decided to call the ambulance at 11 AM to bring him to the hospital. Patient states that he only felt wobbly, mild cough and weak the day prior however denies any other symptoms of nausea, vomiting, headache, body aches, fevers, chills, or recent travel. ED course: Significant vitals on arrival: Blood pressure 162/70, heart rate of 38, temperature of 88 ?F; significant labs for low glucose of 40, elevated BUN at 65, bicarb 19.3, creatinine 2.9, elevated LFTs Imaging: Chest x-ray showed early pneumonia left base, EKG showed bradycardia rate of [address] segment changes In the ED: Terry fernandez, Patient received dextrose, albuterol 15 mg, calcium chloride 10 mg, 50 mill EQ of sodium bicarb, 8 units of insulin, 2 g ceftriaxone, sodium polystyrene sulfonate 15 GM p.o. x 1 Patient was initially admitted to telemetry for further management of patient's hypothermia and hypoglycemia however despite being on D10 at 50 mL/hr dropped from 1 25-78 despite eating 2 puddings. At this time, patient will be upgraded to ICU for further close monitoring for patient's hypothermia and hypoglycemia. Nephrology consulted for hyperkalemia in setting of JULIAN, as well as NAGMA. 05/06/25: Patient seen and assessed at bedside. No complaints. AOx3 on exam. Potassium 7.3 this AM, worsened since admission despite hyperkalemia cocktail. Slowly improving with additional Kayexalate and paritomer. Chloride elevated at 116, BUN 54, Cr 3.2 (baseline 2.3-2.6 in 2023). Anion gap 10. Will continue pharmacological management for hyperkalemia, however if fails to improve, patient will likely need dialysis tomorrow. 05/06/25: Patient was seen and assessed at bedside on telemetry. Feeling better and more conversational. Potassium improved to 4.7 s/p additional Kayexelate and parotimer. BUN 75, Cr stable at 3.4. GFR 19. Phosphorus 6.0, continue sevelemer 800 mg TID. Bicarb improved s/p bicarb amp. 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 Follow up PTH. Per chart review, patient was previously on cinacalcet 60 mg for hyperparathyroidism but patient does not recall if he has been taking it. Will likely need to restart. Follow up AM cortisol tomorrow. No need for dialysis at this time as GFR is still above 15 but will continue to monitor renal panel closely. Exam Vital Signs Temp Pulse Resp BP Pulse Ox O2 Del Method 96.8 F 58 L 18 137/62 H 99 Room Air 05/07/25 07:48 05/07/25 08:42 05/07/25 07:48 05/07/25 08:42 05/07/25 07:48 05/07/25 07:48 Narrative Exam Physical Exam General: Awake and in no acute distress. Conversational and non-toxic appearing. HEENT: Normocephalic, atraumatic, mucous membranes moist. Heart: Regular rate and rhythm, normal S1 and S2, no murmurs appreciated. Lungs: Clear to auscultation with no wheezing or crackles. Abdomen: Soft, nondistended, nontender, positive bowel sounds. Colostomy bag in place. No guarding or rebound tenderness. Neurologic: Alert and oriented x3, no gross neurological deficit, and patient able to move all 4 extremities. Extremities: 2+ pitting edema in lower extremities. Amputated right big and second toes. Skin: Erythematous, warm patch on left brady. No ecchymoses. Objective Labs 05/08/25 04:32 05/08/25 04:32 Labs: Laboratory Results - last 24 hr 05/06/25 05/06/2525 13:03 18:40 23:05 WBC RBC Hgb Hct MCV MCH MCHC RDW Std Deviation Plt Count Neut % (Auto) Lymph % (Auto) [place] % (Auto) Eos % (Auto) Baso % (Auto) Neut # (Auto) Lymph # (Auto) [place] # (Auto) Eos # (Auto) Baso # (Auto) Immature Gran # (Auto) Absolute Nucleated RBC Immature Gran % Nucleated RBC % Sodium 144 146 H Potassium 6.1 H* D 5.1 D Chloride 114 H 114 H Carbon Dioxide 18.8 L 19.8 L Anion Gap 11 12 BUN 67 H 68 H Creatinine 3.3 H 3.4 H Estim Creat Clear Calc 32.6 L 31.7 L eGFR 19 L 19 L BUN/Creatinine Ratio 20 20 Glucose 119 H D 98 Calculated Osmolality 307 H 310 H Calcium 9.1 9.3 Corrected Calcium 9.5 9.5 Phosphorus 5.6 H 6.1 H Total Bilirubin AST ALT Alkaline Phosphatase Troponin I 0.548 H* D Total Protein Albumin 3.5 3.8 Globulin Albumin/Globulin Ratio Ur Random Sodium 54.5 Ur Random Potassium 26 Ur Random Chloride 23.3 L Misc Test Result 05/07/25 04:24 WBC 7.7 RBC 2.83 L Hgb 8.7 L Hct 27.6 L MCV 98 MCH 30.7 MCHC 31.5 RDW Std Deviation 55.9 H Plt Count 75 L Neut % (Auto) 46 Lymph % (Auto) 44 [place] % (Auto) 7 Eos % (Auto) 1 Baso % (Auto) 1 Neut # (Auto) 3.5 Lymph # (Auto) 3.4 [place] # (Auto) 0.6 Eos # (Auto) 0.1 Baso # (Auto) 0.1 Immature Gran # (Auto) 0.08 H Absolute Nucleated RBC 0.04 H Immature Gran % 1 H Nucleated RBC % 1 H Sodium 148 H Potassium 4.7 Chloride 114 H Carbon Dioxide 20.7 Anion Gap 13 BUN 75 H Creatinine 3.4 H Estim Creat Clear Calc 31.7 L eGFR 19 L BUN/Creatinine Ratio 22 H Glucose 101 Calculated Osmolality 316 H Calcium 9.3 Corrected Calcium 9.7 Phosphorus Total Bilirubin 0.3 AST 37 H ALT 39 Alkaline Phosphatase 77 Troponin I Total Protein 5.7 Albumin 3.5 Globulin 2.2 L Albumin/Globulin Ratio 1.6 Ur Random Sodium Ur Random Potassium Ur Random Chloride Misc Test Result Platelets confirmed ABG Interpretation ABG results: 05/05/25 20:37 VBG pH 7.35 VBG pCO2 35 L VBG pO2 112 H VBG Base Excess -6 L Quality Measures Quality Measures VTE prophylaxis Advance care planning discussed with:: patient Assessment & Plan Assessment Current Active Medications: Generic Name Dose Route Start Last Admin Trade Name Freq PRN Reason Stop Dose Admin Acetaminophen 650 mg 05/05/25 19:24 Acetaminophen 325 Mg Tablet PO 06/04/25 19:23 Q6H PRN Fever >101.5 Amiodarone HCl 200 mg 05/06/25 09:00 05/07/25 08:39 Amiodarone Hcl 200 Mg Tablet PO 06/05/25 08:59 200 mg DAILY CINDI Administration Amlodipine Besylate 5 mg 05/06/25 09:00 05/07/25 08:42 Amlodipine Besylate 5 Mg Tablet PO 06/05/25 08:59 5 mg DAILY CINDI Administration Apixaban 2.5 mg 05/07/25 09:00 05/07/25 08:47 Apixaban 2.5 Mg Tablet PO 06/06/25 08:59 2.5 mg BID CINDI Administration Atorvastatin Calcium 10 mg 05/06/25 21:00 05/06/25 20:55 Atorvastatin Calcium 10 Mg Tablet PO 06/05/25 20:59 10 mg HS CINDI Administration Balsam [place] Oil 0 gm 05/06/25 10:00 05/07/25 09:01 Balsam [place] Oil (Venelex) 60 Gm Tube TOP 06/05/25 09:59 1 applicatio BID CINDI Administration Calcitriol 0.5 mcg 05/06/25 09:00 05/07/25 08:42 Calcitriol 0.25 Mcg Capsule PO 06/05/25 08:59 0.5 mcg QDAY CINDI Administration Citric Acid/Sodium Citrate 30 ml 05/07/25 09:30 05/07/25 10:23 Citric Acid/Sodium Citr 15 Ml Udc (Bicitra) PO 06/06/25 09:29 30 ml BID CINDI Administration Clotrimazole 0 gm 05/06/25 10:00 05/07/25 09:01 Clotrimazole Cr 1% 30 Gm Tube TOP 06/05/25 09:59 1 appl BID CINDI Administration Dextrose 25 ml 05/06/25 16:08 Dextrose 50%-Water Inj 50 Ml Syringe IV 06/05/25 16:07 Q15MIN PRN BG 50-70 responsive npo pt Dextrose 50 ml 05/06/25 16:08 Dextrose 50%-Water Inj 50 Ml Syringe IV 06/05/25 16:07 Q15MIN PRN BG <50 OR BG <70 & pt unresponsive Ferrous Sulfate 325 mg 05/06/25 09:00 05/07/25 08:42 Ferrous Sulf 325 Mg Tablet PO 06/05/25 08:59 325 mg QDAY CINDI Administration Glucagon 1 mg 05/06/25 16:08 Glucagon Inj 1 Mg Vial IM Q15MIN PRN BG <70, and no IV access Ceftriaxone Sodium/Dextrose 1 gm in 50 mls @ 100 mls/hr 05/06/25 09:35 05/07/25 08:43 Rocephin/D5w 1gm Iv Premix IV 05/13/25 09:34 100 mls/hr QDAY CINDI Administration Influenza Virus Vaccine Quadrival 0.5 ml 05/08/25 09:00 Influenza Virus 0.5 Ml Syringe IMi 05/08/25 09:01 .ONCE ONE Insulin Human Lispro 0 unit 05/06/25 17:00 05/07/25 08:33 Insulin Lispro (Admelog) 1 Unit/0.01 Ml Unit SC 06/05/25 16:59 Not Given ACHS [facility] Protocol Sevelamer Carbonate 800 mg 05/06/25 08:00 05/07/25 08:52 Sevelamer Carbonate 800 Mg Tablet PO 06/05/25 07:59 Not Given TIDWM CINDI Sodium Chloride 3 ml 05/05/25 18:08 05/06/25 17:13 Sodium Chloride Rt Apryl 0.9% 3 Ml Nebu INH 06/04/25 18:07 3 ml PRN PRN Administration SOLN Sodium Chloride 3 ml 05/06/25 16:51 Sodium Chloride Rt Apryl 0.9% 3 Ml Nebu INH 06/05/25 16:50 PRN PRN SOLN Vitamin B Complex/Vit C/Folic Acid 1 tab 05/06/25 09:00 05/07/25 08:43 Vit B12/Vit C/Fa (Nephrovite) Tablet PO 06/05/25 08:59 1 tab QDAY CINDI Administration Plan Patient is a 69-year-old male with history of HFpEF, A-fib, CAD status post CABG in 2018, DVT left lower extremity, ischemic colitis status post colostomy at [facility], insulin-dependent diabetes on 50 units presented to the ED around 1 PM with hypoglycemia and hypothermia, admitted to telemetry for further management. Was upgraded to ICU for further close monitoring for patient's hypothermia and hypoglycemia but downgraded back to telemetry due to resolution of hypothermia. Nephrology consulted for JULIAN, hyperkalemia, and acidosis. #Hyperkalemia (resolved) #JULIAN on CKD IV - K 6.8 -> 6.1 --> 4.7 s/p albuterol, insulin, Kayexalate, and calcium gluconate. - Cr 2.9 --> 3.3 -> 3.4 - EKG shows sinus rhythm with first degree AV block, no peak T waves observed - Possibly secondary to adrenal insufficiency given accompanying hypothermia and persistent hypoglycemia Plan: - S/p 200 mg hydrocortisone 05/05 - Follow up AM cortisol 05/08 off steroids - Potassium improved to 4.7 after pharmacological management, no need for urgent dialysis at this time however discussed with patient that if GFR continues to decline to 15%, he will likely need to be on dialysis. 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 Per chart review, levels were also intermittently elevated in the past but baseline appears to be within normal range. - Per patient, he does not take sevelamer at home. - Likely iso worsening JULIAN on CKD Plan: - Sevelemer 800 mg TID #Hx hyperparathyroidism - PTH elevated 140s-200s since 2019 - Calcium 9.6, within normal limits but previously low in November 2023 (7.7-8.1) - Parathyroid nuclear scan 02/17/2023 showed subtle increased isotope accumulation over right thyroid region - Soft tissue US 02/19/23 showed two vascular right thyroid nodules (upper 18 x 16 mm, lower 3.5 x 3.6 mm) but no parathyroid adenoma. FNA recommended at the time, unclear if this was completed. - Was on cinacalcet 60 mg but does not recall if he is still taking it - Suspect secondary iso CKD Plan: - Follow up PTH. If elevated, plan to restart. #Altered mentation-resolved #Hypothermia, resolved #History of Heart failure with preserved ejection fraction (HFpEF) #CAD s/p CABG 2018 #A-fib #DVT #Bradycardia- resolved #HLD #Cough #S/p colostomy from ischemic colitis-stable #Severe recurrent hypoglycemia, resolved #Cellulitis #History of DVT #Generalized weakness - Defer to primary team for management Thank you for your consultation, please do not hesitate to reach out if you have any question or concern Patient plan of care was discussed with the attending physician, Dr. Vines. Tatyana Stein DO, PGY-1 Attending Provider Attestation/Addendum Mr. Amezcua is a 69-year-old male with significant medical history for HTN, CAD s/p CABG (under Dr. Baum), HLD, T2DM, CKD IIIb, gout, obesity, secondary hyperparathyroidism (on calcitriol, Renvela), DVT in [facility], A-fib (on Eliquis), HFpEF and colon resection due to ischemic colitis s/p colostomy in [facility], was brought to ED from home with weakness and noted to have severe hypoglycemia needing D10 drip. He was also noted to be hypothermic and hypotensive needing ICU admission. Patient was given 1 dose of hydrocortisone this morning. Moved to ICU. Potassium was very high and was given a medical management. Renal consultation requested for JULIAN/hyperkalemia. He is one of my CKD patients. Spoke to ICU team-continue with medical management for hyperkalemia. If no improvement will consider temporary dialysis. Patient also seems to have hypothermia, hypotension, hyperkalemia and metabolic acidosis-question adrenal insufficiency. Will monitor his electrolytes closely. Patient got 200 mg of hydrocortisone. Will check cortisol levels off steroids for 24 hours. Continue with gentle IV fluids. 05/07/2025 patient currently seen in telemetry. Potassium today seems to be tad better. Hyponatremia and hypotension better. Hypoglycemia still persist. Will switch him to renal diet. Check cortisol levels in a.m. still to consider secondary adrenal insufficiency in the setting of persistent hypotension, hypothermia, hypoglycemia, hyperkalemia, metabolic acidosis. Care discussed with primary team.
[2025-05-07] MEDS: SEVELAMER CARBONATE 800 MG TABLET PO (12:01)
[2025-05-07 12:12] LABS: Phosphorous 6.0 mg/dL (2.4-5.1)
--- NOTE | 2025-05-07 15:07 | ESPR_ITS ---
<Statement entered by Yesi Hopson MD - 05/16/25 09:23> I reviewed above note and agree with findings and plans. I have also personally examined the patient with medicine team and went over assessment and plan with medical team including manager internet retails sales and resident physician. Documentation for date of: 05/07/25 Subjective Subjective Interval history: No acute overnight events. Reports feeling much better today. Denies new or worsening symptoms. Tolerating oral intake without nausea or vomiting. Kidney function appears stable. Hyperkalemia resolved with management. In terms of hyperphosphatemia, he previously was on CINACALCET but does not recall if he is taking it. He has previous findings of increased parathyroid uptake from 2022 along with parathyroid adenoma seen on ultrasound, FNA was recommended but was not completed. Will repeat PTH. Exam Vital Signs Temp Pulse Resp BP Pulse Ox O2 Del Method 97.4 F 58 L 17 155/63 H 98 Room Air 05/07/25 12:00 05/07/25 12:00 05/07/25 12:00 05/07/25 12:00 05/07/25 12:00 05/07/25 12:00 Narrative Exam GENERAL * Ill-appearing male, no apparent distress, satting well on room air. HEENT * NCAT.?FAIZA. Oral mucosa is moist. Patent Nares NECK * Supple, nontender, no JVD. CHEST * RRR, no m/g/r * CTAB, no w/r/r, symmetrical expansion. ABDOMEN * Soft, flat, nontender. No guarding/rebound tenderness/masses. * Bowel sounds presents EXTREMITIES * No edema/cyanosis.? SKIN * Warm and dry, no jaundice/rashes. * Large left distal lower extremity cellulitis which appears to be receding NEUROMUSCULAR * Moves all 4 extremities well, with full ROM and good CSM. * RAMOS x4, CN II-XII grossly intact. * No focal neurologic deficits. PSYCHIATRY * Normal mood and affect, cooperative, no SI or HI or hallucinations. Objective Labs 05/07/25 04:24 05/07/25 04:24 Labs: Laboratory Results - last 24 hr 05/06/25 05/06/25 05/06/25 13:03 18:40 23:05 WBC RBC Hgb Hct MCV MCH MCHC RDW Std Deviation Plt Count Neut % (Auto) Lymph % (Auto) [place] % (Auto) Eos % (Auto) Baso % (Auto) Neut # (Auto) Lymph # (Auto) [place] # (Auto) Eos # (Auto) Baso # (Auto) Immature Gran # (Auto) Absolute Nucleated RBC Immature Gran % Nucleated RBC % Sodium 146 H Potassium 5.1 D Chloride 114 H Carbon Dioxide 19.8 L Anion Gap 12 BUN 68 H Creatinine 3.4 H Estim Creat Clear Calc 31.7 L eGFR 19 L BUN/Creatinine Ratio 20 Glucose 98 Calculated Osmolality 310 H Calcium 9.3 Corrected Calcium 9.5 Phosphorus 6.1 H Total Bilirubin AST ALT Alkaline Phosphatase Troponin I 0.548 H* D Total Protein Albumin 3.8 Globulin Albumin/Globulin Ratio Ur Random Sodium 54.5 Ur Random Potassium 26 Ur Random Chloride 23.3 L Misc Test Result 05/07/25 04:24 WBC 7.7 RBC 2.83 L Hgb 8.7 L Hct 27.6 L MCV 98 MCH 30.7 MCHC 31.5 RDW Std Deviation 55.9 H Plt Count 75 L Neut % (Auto) 46 Lymph % (Auto) 44 [place] % (Auto) 7 Eos % (Auto) 1 Baso % (Auto) 1 Neut # (Auto) 3.5 Lymph # (Auto) 3.4 [place] # (Auto) 0.6 Eos # (Auto) 0.1 Baso # (Auto) 0.1 Immature Gran # (Auto) 0.08 H Absolute Nucleated RBC 0.04 H Immature Gran % 1 H Nucleated RBC % 1 H Sodium 148 H Potassium 4.7 Chloride 114 H Carbon Dioxide 20.7 Anion Gap 13 BUN 75 H Creatinine 3.4 H Estim Creat Clear Calc 31.7 L eGFR 19 L BUN/Creatinine Ratio 22 H Glucose 101 Calculated Osmolality 316 H Calcium 9.3 Corrected Calcium 9.7 Phosphorus 6.0 H Total Bilirubin 0.3 AST 37 H ALT 39 Alkaline Phosphatase 77 Troponin I Total Protein 5.7 Albumin 3.5 Globulin 2.2 L Albumin/Globulin Ratio 1.6 Ur Random Sodium Ur Random Potassium Ur Random Chloride Misc Test Result Platelets confirmed ABG Interpretation ABG results: 05/05/25 20:37 VBG pH 7.35 VBG pCO2 35 L VBG pO2 112 H VBG Base Excess -6 L Quality Measures Quality Measures VTE prophylaxis Advance care planning discussed with:: patient Assessment & Plan Assessment Current Active Medications: Generic Name Dose Route Start Last Admin Trade Name Freq PRN Reason Stop Dose Admin Acetaminophen 650 mg 05/05/25 19:24 Acetaminophen 325 Mg Tablet PO 06/04/25 19:23 Q6H PRN Fever >101.5 Amiodarone HCl 200 mg 05/06/25 09:00 05/07/25 08:39 Amiodarone Hcl 200 Mg Tablet PO 06/05/25 08:59 200 mg DAILY CINDI Administration Amlodipine Besylate 5 mg 05/06/25 09:00 05/07/25 08:42 Amlodipine Besylate 5 Mg Tablet PO 06/05/25 08:59 5 mg DAILY CINDI Administration Apixaban 2.5 mg 05/07/25 09:00 05/07/25 08:47 Apixaban 2.5 Mg Tablet PO 06/06/25 08:59 2.5 mg BID CINDI Administration Atorvastatin Calcium 10 mg 05/06/25 21:00 05/06/25 20:55 Atorvastatin Calcium 10 Mg Tablet PO 06/05/25 20:59 10 mg HS CINDI Administration Balsam [place]iloh Oil 0 gm 05/06/25 10:00 05/07/25 09:01 Balsam [place] Oil (Venelex) 60 Gm Tube TOP 06/05/25 09:59 1 applicatio BID CINDI Administration Calcitriol 0.5 mcg 05/06/25 09:00 05/07/25 08:42 Calcitriol 0.25 Mcg Capsule PO 06/05/25 08:59 0.5 mcg QDAY CINDI Administration Citric Acid/Sodium Citrate 30 ml 05/07/25 09:30 05/07/25 10:23 Citric Acid/Sodium Citr 15 Ml Udc (Bicitra) PO 06/06/25 09:29 30 ml BID CINDI Administration Clotrimazole 0 gm 05/06/25 10:00 05/07/25 09:01 Clotrimazole Cr 1% 30 Gm Tube TOP 06/05/25 09:59 1 appl BID CINDI Administration Dextrose 25 ml 05/06/25 16:08 Dextrose 50%-Water Inj 50 Ml Syringe IV 06/05/25 16:07 Q15MIN PRN BG 50-70 responsive npo pt Dextrose 50 ml 05/06/25 16:08 Dextrose 50%-Water Inj 50 Ml Syringe IV 06/05/25 16:07 Q15MIN PRN BG <50 OR BG <70 & pt unresponsive Ferrous Sulfate 325 mg 05/06/25 09:00 05/07/25 08:42 Ferrous Sulf 325 Mg Tablet PO 06/05/25 08:59 325 mg QDAY CINDI Administration Glucagon 1 mg 05/06/25 16:08 Glucagon Inj 1 Mg Vial IM Q15MIN PRN BG <70, and no IV access Ceftriaxone Sodium/Dextrose 1 gm in 50 mls @ 100 mls/hr 05/06/25 09:35 05/07/25 08:43 Rocephin/D5w 1gm Iv Premix IV 05/13/25 09:34 100 mls/hr QDAY CINDI Administration Influenza Virus Vaccine Quadrival 0.5 ml 05/08/25 09:00 Influenza Virus 0.5 Ml Syringe IMi 05/08/25 09:01 .ONCE ONE Insulin Human Lispro 0 unit 05/06/25 17:00 05/07/25 11:45 Insulin Lispro (Admelog) 1 Unit/0.01 Ml Unit SC 06/05/25 16:59 Not Given [facility] Protocol Sevelamer Carbonate 800 mg 05/06/25 08:00 05/07/25 12:01 Sevelamer Carbonate 800 Mg Tablet PO 06/05/25 07:59 800 mg TIDWM CINDI Administration Sodium Chloride 3 ml 05/05/25 18:08 05/06/25 17:13 Sodium Chloride Rt Apryl 0.9% 3 Ml Nebu INH 06/04/25 18:07 3 ml PRN PRN Administration SOLN Sodium Chloride 3 ml 05/06/25 16:51 Sodium Chloride Rt Apryl 0.9% 3 Ml Nebu INH 06/05/25 16:50 PRN PRN SOLN Vitamin B Complex/Vit C/Folic Acid 1 tab 05/06/25 09:00 05/07/25 08:43 Vit B12/Vit C/Fa (Nephrovite) Tablet PO 06/05/25 08:59 1 tab QDAY CINDI Administration Plan A 69-year-old male with HFpEF, A-fib, CAD, DVT, ischemic colitis, and insulin- dependent diabetes presented with hypoglycemia, hypothermia, and hyperkalemia after a fall. On arrival, his glucose was 40, temperature 88?F, and potassium 6.8. He was treated with rewarming, hyperkalemia cocktails, and D10, and admitted to the ICU for monitoring. His medications were resumed, and JULIAN is being managed medically with the help of Nephrology team. Acute metabolic encephalopathy (resolving) Concern for adrenal insufficiency Per admission note, he presented with nausea and spacing out, likely in settings of uremia, hypoglycemia, hypothermia and bradycardia. There may be a infectious component given cellulitis, however currently he is aseptic with normal lactic acid since admission, UA is negative for UTI. Other underlying causes ruled out including acute blood loss, relatively normal blood gas, and normal thyroid function. No focal neurological deficits noted on exam, low suspicion for CVA and CT head was deferred. [employer] team had concerns for adrenal sufficiency, appropriately given above-mentioned electrolyte abnormality and bradycardia. He was given a trial of STEROIDS which are currently held. Symptoms appear to have resolved. Currently he feels slightly weak but otherwise alert and oriented x 4 and tolerating oral intake without current complaint. ? Monitoring and treating underlying cause ? Repeat CORTISOL level in the a.m. / Severe hyperkalemia (stable) Recurrent hyperkalemia Hyperphosphatemia (stable) Admission potassium 7.[address] changes on EKG. Likely worsening renal function as he is on home SEVELAMER. He was given a round of cocktail with slight improvement of potassium to 6.8. ICU also given another round of hyperkalemia cocktail. Most recent potassium remains elevated at 6.1. Admission phosphorus 6.6, improved to 5.6 with SEVELAMER. He has previous findings of increased parathyroid nuclear scan isotope uptake as well as nodular parathyroid adenoma on ultrasound for which FNA was recommended but was not done. He also has previous findings of elevated PTH, and will repeat PTH this time. ? Repeat potassium ? Continue SEVELAMER 800 mg TID ? Continue KAYAXELATE 30 mg ? Continue PATIROMER 8.5 mg ? 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 Vines outpatient. On presentation, renal function appears stage IV, likely dehydration vs. overall worsening renal function. He had anion gap of 11, bicarb 19 and pCO2 19 with chloride 117, suggestive of hyperchloremic metabolic acidosis. Urine gap was also elevated 5.7, possible type IV RTA. Will continue with medical management following nephrology recommendations. No plan for dialysis at this point, pending further recommendations. ? Renally dose meds, avoid overdiuresis and NEPHROTOXINS ? Daily CMP Acute hypoglycemia (resolved) IDDM On admission, GLUCOSE 30s requiring D10 drip and ICU admission. Presentation to have preceded home INSULIN injection. However there may be a component of poor eating as he reports intolerance to low-carb diet. Currently off D10, blood GLUCOSE within normal limits. A1c 5.4 from 10/2024. Unclear he needs INSULIN regimen going forward, and will need better glycemic control prior to discharge. ? Carb consistent diet ? Avoid hypoglycemia ? INSULIN sliding scale ? Accu-Cheks ? Pending recommendations from registered dietitian Paroxysmal atrial fibrillation, rate controlled Chronic, currently in sinus rhythm, rate controlled. ? Holding home ELIQUIS 2.5 mg BID in preparation for HD cath ? Continue HEPARIN 7500 mg TID (hold at midnight) ? Continue home AMIODARONE 200 mg daily Acute on chronic anemia Likely CKD, hemoglobin 9.1 near baseline. No signs or symptoms of abnormal bleed. ? Continue to monitor ? Continue FERROUS SULFATE 325 mg daily LLE cellulitis History of DVT Presents with distal left lower extremity cellulitis which appears to be preceding with current ANTIBIOTICS. Remains aseptic. ? Continue CEFTRIAXONE ? Continue home ELIQUIS HTN HLD Bradycardia (resolved) He had a single, no recurrent episode of bradycardia at 59, EKG showed heart rate [address] changes. ? Continue monitoring ? Continue home AMLODIPINE 5 mg daily ? Continue home ATORVASTATIN 10 mg HS Cough Reports mild cough which appears to have improving. Less suspicion for pneumonia based on CXR. He received a dose of CEFTRIAXONE and DOXYCYCLINE. Other chronic problems: HFpEF (stable) CAD s/p CABG 2018 (stable) Hx ischemic colitis, s/p PEG tube (stable) No signs of CHF exacerbation. ? Continue monitoring Health maintenance Diet: CHO consistent GI prophylaxis: Not indicated DVT prophylaxis: HEPARIN Antibiotics: CEFTRIAXONE CODE STATUS: Full code Disposition: Treating JULIAN/CKD, hyperkalemia, hyperglycemia. Case was discussed with attending physician. Angela Villagomez DO PGY II This document was transcribed using voice recognition technology. Minor inaccuracies may be present.
[2025-05-07] MEDS: ATORVASTATIN CALCIUM 10 MG TABLET PO (20:57)
[2025-05-08] VITALS (10 sets, daily range): BP systolic 123–172; BP diastolic 57–95; PULSE 55–70; RESP 14–22; TEMP 35.9–36.1; O2SAT 97–98
[2025-05-08 05:55] LABS: Basophils # (Auto) 0.1 Thou/mm3 (0.0-0.2); Basophils % (Auto) 1 % (0-2.5); Eosinophils # (Auto) 0.3 Thou/mm3 (0.0-0.5); Eosinophils % (Auto) 3 % (0-10); Hematocrit 29.1 % (41.0-53.0); Hemoglobin 9.4 g/dL (13.5-16.0); Immature Granulocytes Auto 0.07 Thou/mm3 (0.00-0.00); Lymphocytes # (Auto) 3.6 Thou/mm3 (1.0-4.8); Lymphocytes % (Auto) 47 % (10-50); Mean Corpuscular HGB Conc 32.3 g/dl (31.0-37.0); Mean Corpuscular Hemoglobin 31.3 pg (25.0-35.0); Mean Corpuscular Volume 97 fL (80-100); Monocytes # (Auto) 0.6 Thou/mm3 (0.0-0.8); Monocytes % (Auto) 8 % (0-12); Neutrophils # (Auto) 3.1 Thou/mm3 (1.8-7.7); Neutrophils % (Auto) 40 % (37-80); Nucleated Red Blood Cell # 0.00 Thou/mm3 (0.00-0.00); Nucleated Red Blood Cell % 0 /100 WBC (0); RDW Standard Deviation 56.8 fL (35.1-43.9); Red Blood Count 3.00 Miln/mm3 (4.50-5.90); White Blood Count 7.6 Thou/mm3 (3.8-10.6)
[2025-05-08 05:56] LABS: Platelet Count 73 Thou/mm3 (140-440); Slide Review Platelets confirmed
[2025-05-08 06:32] LABS: Alanine Aminotransferase 39 U/L (10-49); Albumin, Serum 3.5 gm/dL (3.4-4.8); Albumin/Globulin Ratio 1.5 (1.2-2.2); Alkaline Phosphatase 81 U/L (46-116); Anion Gap 12 (7-16); Aspartate Amino Transferase 38 U/L (0-34); BUN/Creatinine Ratio 23 Ratio (12-20); Bilirubin,Total 0.4 mg/dL (0.3-1.2); Blood Urea Nitrogen 72 mg/dL (9-23); Calcium 9.3 mg/dL (8.3-10.6); Calcium (Corrected) 9.7 mg/dL (8.5-10.1); Carbon Dioxide 21.8 mMol/L (20.0-31.0); Chloride 112 mMol/L (98-107); Creatinine (Component) 3.2 mg/dL (0.6-1.3); Estimated Creatinine Clearance 30.6 mL/min (>60); Globulin 2.4 gm/dL (2.3-3.5); Glucose 72 mg/dL (74-106); Osmolality,Calculated 310 (275-295); Phosphorous 5.8 mg/dL (2.4-5.1); Potassium 5.2 mMol/L (3.4-5.1); Sodium 146 mMol/L (136-145); Total Protein 5.9 gm/dL (5.7-8.2); eGFR 20 See Note
[2025-05-08] MEDS: BALSAM PERU/CASTOR OIL (Venelex) 60 GM TUBE TOP (09:00)
[2025-05-08] MEDS: CITRIC ACID/SODIUM CITR 15 ML UDC (BICITRA) 30 ML PO ×2 (09:00→20:13)
[2025-05-08] MEDS: CLOTRIMAZOLE CR 1% 30 GM TUBE TOP ×2 (09:00→20:14)
[2025-05-08] MEDS: cefTRIAXone/D5w 1gm IV premix 1 GM/50 ML BAG IV (09:00)
[2025-05-08] MEDS: APIXABAN 2.5 MG TABLET PO ×2 (09:01→20:13)
[2025-05-08] MEDS: AMIODARONE HCL 200 MG TABLET PO (09:02)
[2025-05-08] MEDS: VIT B12/Vit C/FA (Nephrovite) TABLET 1 TAB PO (09:06)
[2025-05-08] MEDS: FERROUS SULF 325 MG TABLET PO (09:06)
--- NOTE | 2025-05-08 09:58 | PD.NEPHPROG ---
Documentation for date of: 05/08/25 Subjective Subjective Interval history: Mr. Amezcua is a 69-year-old male with history of Heart failure preserved ejection fraction, A-fib, CAD status post CABG in 2018, DVT left lower extremity, ischemic colitis status post colostomy at [facility], insulin-dependent diabetes on 50 units presented to the ED around 1 PM with hypoglycemia and hypothermia. Per patient's and patient, patient was following his normal routine of waking up at 10 AM and went to the restroom. After sitting on his commode, patient was unable to get off the commode. At 10:10 AM patient's found him looking spacey and lethargic. She also noticed that he was ice cold to touch. She took a blood sugar which was 89 and after a glass of juice repeat blood glucose was 5910 minutes later. She decided to call the ambulance at 11 AM to bring him to the hospital. Patient states that he only felt wobbly, mild cough and weak the day prior however denies any other symptoms of nausea, vomiting, headache, body aches, fevers, chills, or recent travel. ED course: Significant vitals on arrival: Blood pressure 162/70, heart rate of 38, temperature of 88 ?F; significant labs for low glucose of 40, elevated BUN at 65, bicarb 19.3, creatinine 2.9, elevated LFTs Imaging: Chest x-ray showed early pneumonia left base, EKG showed bradycardia rate of [address] segment changes In the ED: Terry fernandez, Patient received dextrose, albuterol 15 mg, calcium chloride 10 mg, 50 mill EQ of sodium bicarb, 8 units of insulin, 2 g ceftriaxone, sodium polystyrene sulfonate 15 GM p.o. x 1 Patient was initially admitted to telemetry for further management of patient's hypothermia and hypoglycemia however despite being on D10 at 50 mL/hr dropped from 1 25-78 despite eating 2 puddings. At this time, patient will be upgraded to ICU for further close monitoring for patient's hypothermia and hypoglycemia. Nephrology consulted for hyperkalemia in setting of JULIAN, as well as NAGMA. 05/06/25: Patient seen and assessed at bedside. No complaints. AOx3 on exam. Potassium 7.3 this AM, worsened since admission despite hyperkalemia cocktail. Slowly improving with additional Kayexalate and paritomer. Chloride elevated at 116, BUN 54, Cr 3.2 (baseline 2.3-2.6 in 2023). Anion gap 10. Will continue pharmacological management for hyperkalemia, however if fails to improve, patient will likely need dialysis tomorrow. 05/07/25: Patient was seen and assessed at bedside on telemetry. Feeling better and more conversational. Potassium improved to 4.7 s/p additional Kayexelate and parotimer. BUN 75, Cr stable at 3.4. GFR 19. Phosphorus 6.0, continue sevelemer 800 mg TID. Bicarb improved s/p bicarb amp. 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 Follow up PTH. Per chart review, patient was previously on cinacalcet 60 mg for hyperparathyroidism but patient does not recall if he has been taking it. Will likely need to restart. Follow up AM cortisol tomorrow. No need for dialysis at this time as GFR is still above 15 but will continue to monitor renal panel closely. 05/08/2025 patient currently seen in telemetry. Resting comfortably. Potassium tad elevated at 5.2. Changed him to renal diet. Labs and medications have been reviewed. Sodium 145, potassium 5.2, chloride 113, bicarbonate 22.6, BUN 70, creatinine 3.3, GFR 19, phosphorus 5.8, calcium 9.4, LFTs normal Review of Systems Review of Systems Narrative Review of Systems: CONSTITUTIONAL: Patient denies any fever, chills. Complaining of fatigue HEENT: Denies any visual disturbances or hearing problems. CARDIOVASCULAR: Patient denies any chest pain, shortness of breath, swelling in the lower extremities. PULMONARY: Patient denies any shortness of breath, cough. GASTROINTESTINAL: Patient denies any abdominal pain, constipation, nausea, vomiting, diarrhea. Colostomy GENITOURINARY: Patient denies any urinary symptoms of burning or frequency or hematuria, denies any form in the urine. SKIN: Denies any rash. MUSCULOSKELETAL: Complaining of gait imbalance NEUROLOGICAL: Denies any neurological problems of strokes, seizures or confusion. Denies any memory problems. PSYCHIATRIC: Denies any depression or anxiety. LYMPHATICS : No lymphadenopathy Exam Vital Signs Temp Pulse Resp BP Pulse Ox O2 Del Method 35.9 C L 70 17 145/61 H 98 Room Air 05/08/25 07:54 12/07/25 09:02 05/08/25 07:54 05/08/25 09:02 05/08/25 07:54 05/08/25 07:54 Narrative Exam Physical Exam General: Awake and in no acute distress. Conversational and non-toxic appearing. HEENT: Normocephalic, atraumatic, mucous membranes moist. Heart: Regular rate and rhythm, normal S1 and S2, no murmurs appreciated. Lungs: Clear to auscultation with no wheezing or crackles. Abdomen: Soft, nondistended, nontender, positive bowel sounds. Colostomy bag in place. No guarding or rebound tenderness. Neurologic: Alert and oriented x3, no gross neurological deficit, and patient able to move all 4 extremities. Extremities: 2+ pitting edema in lower extremities. Amputated right big and second toes. Skin: Erythematous, warm patch on left brady. No ecchymoses. Objective Labs 05/08/25 04:32 05/08/25 15:22 Labs: Laboratory Results - last 24 hr 05/07/25 05/08/25 04:24 04:32 WBC 7.6 RBC 3.00 L Hgb 9.4 L Hct 29.1 L MCV 97 MCH 31.3 MCHC 32.3 RDW Std Deviation 56.8 H Plt Count 73 L Neut % (Auto) 40 Lymph % (Auto) 47 [place] % (Auto) 8 Eos % (Auto) 3 Baso % (Auto) 1 Neut # (Auto) 3.1 Lymph # (Auto) 3.6 [place] # (Auto) 0.6 Eos # (Auto) 0.3 Baso # (Auto) 0.1 Immature Gran # (Auto) 0.07 H Absolute Nucleated RBC 0.00 Immature Gran % 1 H Nucleated RBC % 0 Sodium 146 H Potassium 5.2 H D Chloride 112 H Carbon Dioxide 21.8 Anion Gap 12 BUN 72 H Creatinine 3.2 H Estim Creat Clear Calc 30.6 L eGFR 20 L BUN/Creatinine Ratio 23 H Glucose 72 L Calculated Osmolality 310 H Calcium 9.3 Corrected Calcium 9.7 Phosphorus 6.0 H 5.8 H Total Bilirubin 0.4 AST 38 H ALT 39 Alkaline Phosphatase 81 Total Protein 5.9 Albumin 3.5 Globulin 2.4 Albumin/Globulin Ratio 1.5 Misc Test Result Platelets confirmed ABG Interpretation ABG results: 05/05/25 20:37 VBG pH 7.35 VBG pCO2 35 L VBG pO2 112 H VBG Base Excess -6 L Assessment & Plan Additional Assessment & Plan Additional Plan: Patient is a 69-year-old male with history of HFpEF, A-fib, CAD status post CABG in 2018, DVT left lower extremity, ischemic colitis status post colostomy at [facility], insulin-dependent diabetes on 50 units presented to the ED around 1 PM with hypoglycemia and hypothermia, admitted to telemetry for further management. Was upgraded to ICU for further close monitoring for patient's hypothermia and hypoglycemia but downgraded back to telemetry due to resolution of hypothermia. Nephrology consulted for JULIAN, hyperkalemia, and acidosis. 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 #JULIAN on CKD IV - K 6.8 -> 6.1 --> 4.7 s/p albuterol, insulin, Kayexalate, and calcium gluconate. - Cr 2.9 --> 3.3 -> 3.4 - EKG shows sinus rhythm with first degree AV block, no peak T waves observed - Not quite sure on his hypothermia although his temperature seems to be better now. Creatinine stabilized. Pending cortisol levels. Question adrenal insufficiency although should have hyponatremia. Plan: - S/p 200 mg hydrocortisone 05/05 - Follow up AM cortisol 05/08 off steroids - Avoid nephrotoxic agents - Renally dose medications - Hold spiranolactone and potassium - Avoid medications that may exacerbate hyperkalemia #NAGMA 2/2 RTA type IV - Anion gap of 11, bicarbonate 19.3, pCO2 19 - Chloride 117 --> 114, likely hyperchloremic metabolic acidosis - Winter's Formula 34-38, appropriately compensated - High urine anion gap 57.2, possibly type 4 RTA iso hyperkalemia Plan: - S/p sodium bicarb IVP x1 - Start on Bicitra 30 mg BID - Hold spiranolactone and potassium - Avoid medications that may exacerbate hyperkalemia #Hyperphosphatemia - Phosphorus 6.6 on admission, continues to be elevated. Per chart review, levels were also intermittently elevated in the past but baseline appears to be within normal range. - Likely iso worsening JULIAN on CKD Plan: - Sevelemer 800 mg TID #Hx hyperparathyroidism - PTH elevated 140s-200s since 2019 - Calcium 9.6, within normal limits but previously low in November 2023 (7.7-8.1) - Parathyroid nuclear scan 02/17/2023 showed subtle increased isotope accumulation over right thyroid region - Soft tissue US 02/19/23 showed two vascular right thyroid nodules (upper 18 x 16 mm, lower 3.5 x 3.6 mm) but no parathyroid adenoma. FNA recommended at the time, unclear if this was completed. - Was on cinacalcet 60 mg but does not recall if he is still taking it - Suspect secondary iso CKD Plan: - Follow up PTH. If elevated, plan to restart. #Hypothermia- #History of Heart failure with preserved ejection fraction (HFpEF) #CAD s/p CABG 2018 #A-fib #DVT #Bradycardia- resolved #HLD #S/p colostomy from ischemic colitis-stable #Severe recurrent hypoglycemia, better #Cellulitis #History of DVT #Generalized weakness - Defer to primary team for management
[2025-05-08] MEDS: DEXTROSE 5%-WATER 1,000 ML 80 ML IV ×2 (11:45→23:52)
--- NOTE | 2025-05-08 15:03 | ESPR_ITS ---
<Statement entered by Yesi Hopson MD - 05/16/25 09:24> I reviewed above note and agree with findings and plans. I have also personally examined the patient with medicine team and went over assessment and plan with medical team including engineer intern and resident physician. Documentation for date of: 05/08/25 Subjective Subjective Interval history: No acute overnight events. Seen and examined at bedside. Reports feeling better today. Kidney function improving, although creatinine went up to 5.2 after normalizing yesterday and will repeat renal panel and add KAYEXALATE x 1. Tolerating oral intake well. Currently on room air. Remains fluid overloaded but satting well on room air, will initiate gentle diuresis. Exam Vital Signs Temp Pulse Resp BP Pulse Ox O2 Del Method 96.7 F L 58 L 20 159/74 H 97 Room Air 05/08/25 12:00 05/08/25 12:00 05/08/25 12:00 05/08/25 12:00 05/08/25 12:00 05/08/25 12:00 Narrative Exam Physical Exam General: Awake and in no acute distress. Conversational and non-toxic appearing. HEENT: Normocephalic, atraumatic, mucous membranes moist. Heart: Regular rate and rhythm, normal S1 and S2, no murmurs appreciated. Lungs: Clear to auscultation with no wheezing or crackles. Abdomen: Soft, nondistended, nontender, positive bowel sounds. Colostomy bag in place. No guarding or rebound tenderness. Neurologic: Alert and oriented x3, no gross neurological deficit, and patient able to move all 4 extremities. Extremities: 2+ pitting edema in lower extremities. Amputated right big and second toes. Skin: Erythematous, warm patch on left brady. No ecchymoses. Objective Labs 05/08/25 04:32 05/08/25 04:32 Labs: Laboratory Results - last 24 hr 05/08/25 04:32 WBC 7.6 RBC 3.00 L Hgb 9.4 L Hct 29.1 L MCV 97 MCH 31.3 MCHC 32.3 RDW Std Deviation 56.8 H Plt Count 73 L Neut % (Auto) 40 Lymph % (Auto) 47 [place] % (Auto) 8 Eos % (Auto) 3 Baso % (Auto) 1 Neut # (Auto) 3.1 Lymph # (Auto) 3.6 [place] # (Auto) 0.6 Eos # (Auto) 0.3 Baso # (Auto) 0.1 Immature Gran # (Auto) 0.07 H Absolute Nucleated RBC 0.00 Immature Gran % 1 H Nucleated RBC % 0 Sodium 146 H Potassium 5.2 H D Chloride 112 H Carbon Dioxide 21.8 Anion Gap 12 BUN 72 H Creatinine 3.2 H Estim Creat Clear Calc 30.6 L eGFR 20 L BUN/Creatinine Ratio 23 H Glucose 72 L Calculated Osmolality 310 H Calcium 9.3 Corrected Calcium 9.7 Phosphorus 5.8 H Total Bilirubin 0.4 AST 38 H ALT 39 Alkaline Phosphatase 81 Total Protein 5.9 Albumin 3.5 Globulin 2.4 Albumin/Globulin Ratio 1.5 Misc Test Result Platelets confirmed ABG Interpretation ABG results: 05/05/25 20:37 VBG pH 7.35 VBG pCO2 35 L VBG pO2 112 H VBG Base Excess -6 L Quality Measures Quality Measures VTE prophylaxis Advance care planning discussed with:: patient Assessment & Plan Assessment Current Active Medications: Generic Name Dose Route Start Last Admin Trade Name Freq PRN Reason Stop Dose Admin Acetaminophen 650 mg 05/05/25 19:24 Acetaminophen 325 Mg Tablet PO 06/04/25 19:23 Q6H PRN Fever >101.5 Amiodarone HCl 200 mg 05/06/25 09:00 05/08/25 09:02 Amiodarone Hcl 200 Mg Tablet PO 06/05/25 08:59 200 mg DAILY CINDI Administration Amlodipine Besylate 5 mg 05/06/25 09:00 05/08/25 09:01 Amlodipine Besylate 5 Mg Tablet PO 06/05/25 08:59 5 mg DAILY CINDI Administration Apixaban 2.5 mg 05/07/25 09:00 05/08/25 09:01 Apixaban 2.5 Mg Tablet PO 06/06/25 08:59 2.5 mg BID CINDI Administration Atorvastatin Calcium 10 mg 05/06/25 21:00 05/07/25 20:57 Atorvastatin Calcium 10 Mg Tablet PO 06/05/25 20:59 10 mg HS CINDI Administration Balsam Madhuri/Lerona Oil 0 gm 05/06/25 10:00 05/08/25 09:00 Balsam Madhuri/Lerona Oil (Venelex) 60 Gm Tube TOP 06/05/25 09:59 1 applicatio BID CINDI Administration Calcitriol 0.5 mcg 05/06/25 09:00 05/08/25 09:02 Calcitriol 0.25 Mcg Capsule PO 06/05/25 08:59 0.5 mcg QDAY CINDI Administration Citric Acid/Sodium Citrate 30 ml 05/07/25 09:30 05/08/25 09:00 Citric Acid/Sodium Citr 15 Ml Udc (Bicitra) PO 06/06/25 09:29 30 ml BID CINDI Administration Clotrimazole 0 gm 05/06/25 10:00 05/08/25 09:00 Clotrimazole Cr 1% 30 Gm Tube TOP 06/05/25 09:59 1 appl BID CINDI Administration Dextrose 25 ml 05/06/25 16:08 Dextrose 50%-Water Inj 50 Ml Syringe IV 06/05/25 16:07 Q15MIN PRN BG 50-70 responsive npo pt Dextrose 50 ml 05/06/25 16:08 Dextrose 50%-Water Inj 50 Ml Syringe IV 06/05/25 16:07 Q15MIN PRN BG <50 OR BG <70 & pt unresponsive Ferrous Sulfate 325 mg 05/06/25 09:00 05/08/25 09:06 Ferrous Sulf 325 Mg Tablet PO 06/05/25 08:59 325 mg QDAY CINDI Administration Glucagon 1 mg 05/06/25 16:08 Glucagon Inj 1 Mg Vial IM Q15MIN PRN BG <70, and no IV access Ceftriaxone Sodium/Dextrose 1 gm in 50 mls @ 100 mls/hr 05/06/25 09:35 05/08/25 09:00 Rocephin/D5w 1gm Iv Premix IV 05/13/25 09:34 100 mls/hr QDAY CINDI Administration Dextrose 1,000 mls @ 80 mls/hr 05/08/25 10:45 05/08/25 11:45 D5w IV 06/07/25 10:44 80 mls/hr .[id number] CINDI Administration Insulin Human Lispro 0 unit 05/06/25 17:00 05/08/25 11:47 Insulin Lispro (Admelog) 1 Unit/0.01 Ml Unit SC 06/05/25 16:59 Not Given ACHS CINDI Protocol Sevelamer Carbonate 800 mg 05/06/25 08:00 05/07/25 12:01 Sevelamer Carbonate 800 Mg Tablet PO 06/05/25 07:59 800 mg On Hold: 05/07/25 15:09 TIDWM CINDI Administration Sodium Chloride 3 ml 05/05/25 18:08 05/06/25 17:13 Sodium Chloride Rt Apryl 0.9% 3 Ml Nebu INH 06/04/25 18:07 3 ml PRN PRN Administration SOLN Sodium Chloride 3 ml 05/06/25 16:51 Sodium Chloride Rt Apryl 0.9% 3 Ml Nebu INH 06/05/25 16:50 PRN PRN SOLN Vitamin B Complex/Vit C/Folic Acid 1 tab 05/06/25 09:00 05/08/25 09:06 Vit B12/Vit C/Fa (Nephrovite) Tablet PO 06/05/25 08:59 1 tab QDAY CINDI Administration Plan A 69-year-old male with HFpEF, A-fib, CAD, DVT, ischemic colitis, and insulin- dependent diabetes presented with hypoglycemia, hypothermia, and hyperkalemia after a fall. On arrival, his glucose was 40, temperature 88?F, and potassium 6.8. He was treated with rewarming, hyperkalemia cocktails, and D10, and admitted to the ICU for monitoring. His medications were resumed, and JULIAN is being managed medically with the help of Nephrology team. Acute metabolic encephalopathy (resolving) Concern for adrenal insufficiency Per admission note, he presented with nausea and spacing out, likely in settings of uremia, hypoglycemia, hypothermia and bradycardia. There may be a infectious component given cellulitis, however currently he is aseptic with normal lactic acid since admission, UA is negative for UTI. Other underlying causes ruled out including acute blood loss, relatively normal blood gas, and normal thyroid function. No focal neurological deficits noted on exam, low suspicion for CVA and CT head was deferred. Museum Technician team had concerns for adrenal sufficiency, appropriately given above-mentioned electrolyte abnormality and bradycardia. He was given a trial of STEROIDS which are currently held. Symptoms appear to have resolved. Currently he feels slightly weak but otherwise alert and oriented x 4 and tolerating oral intake without current complaint. ? Monitoring and treating underlying cause ? Morning CORTISOL was collected today. Severe hyperkalemia (stable) Recurrent hyperkalemia Hyperphosphatemia (stable) Admission potassium 7.[address] changes on EKG. Likely worsening renal function as he is on home SEVELAMER. He was given a round of cocktail with slight improvement of potassium to 6.8. ICU also given another round of hyperkalemia cocktail. Most recent potassium remains elevated at 6.1. Admission phosphorus 6.6, improved to 5.6 with SEVELAMER. He has previous findings of increased parathyroid nuclear scan isotope uptake as well as nodular parathyroid adenoma on ultrasound for which FNA was recommended but was not done. He also has previous findings of elevated PTH, and will repeat PTH this time. Gave 1 dose KAYEXALATE x 1 for potassium 5.2. ? Repeat potassium ? Continue SEVELAMER 800 mg TID ? Continue KAYAXELATE 30 mg ? Continue PATIROMER 8.5 mg ? PTH collected ? 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 Vines outpatient. On presentation, renal function appears stage IV, likely dehydration vs. overall worsening renal function. He had anion gap of 11, bicarb 19 and pCO2 19 with chloride 117, suggestive of hyperchloremic metabolic acidosis. Urine gap was also elevated 5.7, possible type IV RTA. Will continue with medical management following nephrology recommendations. No plan for dialysis at this point, pending further recommendations. ? Renally dose meds, avoid overdiuresis and NEPHROTOXINS ? Daily CMP ? Continue BICITRA daily Acute hypoglycemia (resolved) IDDM On admission, GLUCOSE 30s requiring D10 drip and ICU admission. Presentation to have preceded home INSULIN injection. However there may be a component of poor eating as he reports intolerance to low-carb diet. Currently off D10, blood GLUCOSE within normal limits. A1c 5.4 from 10/2024. Unclear he needs INSULIN regimen going forward, and will need better glycemic control prior to discharge. ? Carb consistent diet ? Avoid hypoglycemia ? INSULIN sliding scale ? Accu-Cheks ? Pending recommendations from registered dietitian Paroxysmal atrial fibrillation, rate controlled Chronic, currently in sinus rhythm, rate controlled. ? Holding home ELIQUIS 2.5 mg BID in preparation for HD cath ? Continue HEPARIN 7500 mg TID (hold at midnight) ? Continue home AMIODARONE 200 mg daily Acute on chronic anemia Likely CKD, hemoglobin 9.1 near baseline. No signs or symptoms of abnormal bleed. ? Continue to monitor ? Continue FERROUS SULFATE 325 mg daily LLE cellulitis History of DVT Presents with distal left lower extremity cellulitis which appears to be preceding with current ANTIBIOTICS. Remains aseptic. ? Continue CEFTRIAXONE ? Continue home ELIQUIS HTN HLD Bradycardia (resolved) He had a single, no recurrent episode of bradycardia at 57, EKG showed heart rate [address] changes. ? Continue monitoring ? Continue home AMLODIPINE 5 mg daily ? Continue home ATORVASTATIN 10 mg HS Cough Reports mild cough which appears to have improving. Less suspicion for pneumonia based on CXR. He received a dose of CEFTRIAXONE and DOXYCYCLINE. Other chronic problems: HFpEF (stable) CAD s/p CABG 2018 (stable) Hx ischemic colitis, s/p PEG tube (stable) No signs of CHF exacerbation. ? Continue monitoring ? Started LASIX 20 mg daily for LE edema. Health maintenance Diet: CHO consistent GI prophylaxis: Not indicated DVT prophylaxis: HEPARIN Antibiotics: CEFTRIAXONE CODE STATUS: Full code Disposition: Treating JULIAN/CKD, hyperkalemia, hyperglycemia. Case was discussed with attending physician. Angela Villagomez DO PGY II This document was transcribed using voice recognition technology. Minor inaccuracies may be present.
[2025-05-08] MEDS: SOD POLYSTYRENE SULFON SUSP 15 GM/60 ML BTL PO (15:16)
[2025-05-08 15:44] LABS: Anion Gap 9 (7-16); Calcium 9.1 mg/dL (8.3-10.6); Carbon Dioxide 22.6 mMol/L (20.0-31.0); Chloride 113 mMol/L (98-107); Potassium 5.2 mMol/L (3.4-5.1); Sodium 145 mMol/L (136-145)
[2025-05-08 15:48] LABS: Albumin, Serum 3.6 gm/dL (3.4-4.8); BUN/Creatinine Ratio 21 Ratio (12-20); Blood Urea Nitrogen 70 mg/dL (9-23); Calcium (Corrected) 9.4 mg/dL (8.5-10.1); Creatinine (Component) 3.3 mg/dL (0.6-1.3); Estimated Creatinine Clearance 29.7 mL/min (>60); Glucose 115 mg/dL (74-106); Osmolality,Calculated 310 (275-295); Phosphorous 5.8 mg/dL (2.4-5.1); eGFR 19 See Note
[2025-05-08] MEDS: FUROSEMIDE INJ 10 MG/ML VIAL 2 ML 20 MG IVP (16:20)
[2025-05-08] MEDS: ATORVASTATIN CALCIUM 10 MG TABLET PO (20:13)
[2025-05-08 20:53] LABS: Parathyroid Hormone Intact 119.9 pg/ml (18.5-88.0)
[2025-05-09] VITALS (14 sets, daily range): BP systolic 169–195; BP diastolic 74–98; PULSE 57–90; RESP 18–24; TEMP 35.1–36.3; O2SAT 93–96; BMI 41.4; BMI 11.0
--- NOTE | 2025-05-09 00:55 | PC.NURSE ---
Dr. Marx notified regarding elevated BPs this evening. Patient asymptomatic. No new orders at this time.
[2025-05-09 06:43] LABS: Basophils # (Auto) 0.0 Thou/mm3 (0.0-0.2); Basophils % (Auto) 1 % (0-2.5); Eosinophils # (Auto) 0.3 Thou/mm3 (0.0-0.5); Eosinophils % (Auto) 3 % (0-10); Hematocrit 30.8 % (41.0-53.0); Hemoglobin 10.0 g/dL (13.5-16.0); Immature Granulocytes Auto 0.06 Thou/mm3 (0.00-0.00); Lymphocytes # (Auto) 2.5 Thou/mm3 (1.0-4.8); Lymphocytes % (Auto) 31 % (10-50); Mean Corpuscular HGB Conc 32.5 g/dl (31.0-37.0); Mean Corpuscular Hemoglobin 31.2 pg (25.0-35.0); Mean Corpuscular Volume 96 fL (80-100); Monocytes # (Auto) 0.8 Thou/mm3 (0.0-0.8); Monocytes % (Auto) 10 % (0-12); Neutrophils # (Auto) 4.3 Thou/mm3 (1.8-7.7); Neutrophils % (Auto) 54 % (37-80); Nucleated Red Blood Cell # 0.00 Thou/mm3 (0.00-0.00); Nucleated Red Blood Cell % 0 /100 WBC (0); RDW Standard Deviation 53.4 fL (35.1-43.9); Red Blood Count 3.21 Miln/mm3 (4.50-5.90); White Blood Count 8.0 Thou/mm3 (3.8-10.6)
[2025-05-09 07:15] LABS: Platelet Count 70 Thou/mm3 (140-440)
[2025-05-09 07:24] LABS: Alanine Aminotransferase 36 U/L (10-49); Albumin, Serum 3.7 gm/dL (3.4-4.8); Albumin/Globulin Ratio 1.4 (1.2-2.2); Alkaline Phosphatase 92 U/L (46-116); Anion Gap 13 (7-16); Aspartate Amino Transferase 33 U/L (0-34); BUN/Creatinine Ratio 22 Ratio (12-20); Bilirubin,Total 0.7 mg/dL (0.3-1.2); Blood Urea Nitrogen 68 mg/dL (9-23); Calcium 9.5 mg/dL (8.3-10.6); Calcium (Corrected) 9.7 mg/dL (8.5-10.1); Carbon Dioxide 22.2 mMol/L (20.0-31.0); Chloride 110 mMol/L (98-107); Creatinine (Component) 3.1 mg/dL (0.6-1.3); Estimated Creatinine Clearance 31.6 mL/min (>60); Globulin 2.6 gm/dL (2.3-3.5); Glucose 99 mg/dL (74-106); Osmolality,Calculated 308 (275-295); Phosphorous 5.2 mg/dL (2.4-5.1); Potassium 5.0 mMol/L (3.4-5.1); Sodium 145 mMol/L (136-145); Total Protein 6.3 gm/dL (5.7-8.2); eGFR 21 See Note
[2025-05-09] MEDS: VIT B12/Vit C/FA (Nephrovite) TABLET 1 TAB PO (08:11)
[2025-05-09] MEDS: AMIODARONE HCL 200 MG TABLET PO (08:11)
[2025-05-09] MEDS: APIXABAN 2.5 MG TABLET PO ×2 (08:12→21:17)
[2025-05-09] MEDS: FERROUS SULF 325 MG TABLET PO (08:12)
[2025-05-09] MEDS: FUROSEMIDE INJ 10 MG/ML VIAL 2 ML 20 MG IVP (08:12)
[2025-05-09] MEDS: CITRIC ACID/SODIUM CITR 15 ML UDC (BICITRA) 30 ML PO ×2 (08:13→21:15)
[2025-05-09] MEDS: cefTRIAXone/D5w 1gm IV premix 1 GM/50 ML BAG IV (08:13)
[2025-05-09] MEDS: BALSAM PERU/CASTOR OIL (Venelex) 60 GM TUBE TOP ×2 (08:14→21:18)
[2025-05-09] MEDS: CLOTRIMAZOLE CR 1% 30 GM TUBE TOP ×2 (08:14→21:17)
[2025-05-09 08:17] LABS: Slide Review Platelets confirmed
--- NOTE | 2025-05-09 09:05 | ESPR_ITS ---
Documentation for date of: 05/09/25 Subjective Subjective Interval history: Interval history: Mr. Amezcua is a 69-year-old male with history of Heart failure preserved ejection fraction, A-fib, CAD status post CABG in 2018, DVT left lower extremity, ischemic colitis status post colostomy at [facility], insulin-dependent diabetes on 50 units presented to the ED around 1 PM with hypoglycemia and hypothermia. Per patient's and patient, patient was following his normal routine of waking up at 10 AM and went to the restroom. After sitting on his commode, patient was unable to get off the commode. At 10:10 AM patient's found him looking spacey and lethargic. She also noticed that he was ice cold to touch. She took a blood sugar which was 89 and after a glass of juice repeat blood glucose was 5910 minutes later. She decided to call the ambulance at 11 AM to bring him to the hospital. Patient states that he only felt wobbly, mild cough and weak the day prior however denies any other symptoms of nausea, vomiting, headache, body aches, fevers, chills, or recent travel. ED course: Significant vitals on arrival: Blood pressure 162/70, heart rate of 38, temperature of 88 ?F; significant labs for low glucose of 40, elevated BUN at 65, bicarb 19.3, creatinine 2.9, elevated LFTs Imaging: Chest x-ray showed early pneumonia left base, EKG showed bradycardia rate of [address] segment changes In the ED: Terry fernandez, Patient received dextrose, albuterol 15 mg, calcium chloride 10 mg, 50 mill EQ of sodium bicarb, 8 units of insulin, 2 g ceftriaxone, sodium polystyrene sulfonate 15 GM p.o. x 1 Patient was initially admitted to telemetry for further management of patient's hypothermia and hypoglycemia however despite being on D10 at 50 mL/hr dropped from 1 25-78 despite eating 2 puddings. At this time, patient will be upgraded to ICU for further close monitoring for patient's hypothermia and hypoglycemia. Nephrology consulted for hyperkalemia in setting of JULIAN, as well as NAGMA. 05/06/25: Patient seen and assessed at bedside. No complaints. AOx3 on exam. Potassium 7.3 this AM, worsened since admission despite hyperkalemia cocktail. Slowly improving with additional Kayexalate and paritomer. Chloride elevated at 116, BUN 54, Cr 3.2 (baseline 2.3-2.6 in 2023). Anion gap 10. Will continue pharmacological management for hyperkalemia, however if fails to improve, patient will likely need dialysis tomorrow. 05/07/25: Patient was seen and assessed at bedside on telemetry. Feeling better and more conversational. Potassium improved to 4.7 s/p additional Kayexelate and parotimer. BUN 75, Cr stable at 3.4. GFR 19. Phosphorus 6.0, continue sevelemer 800 mg TID. Bicarb improved s/p bicarb amp. 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 Follow up PTH. Per chart review, patient was previously on cinacalcet 60 mg for hyperparathyroidism but patient does not recall if he has been taking it. Will likely need to restart. Follow up AM cortisol tomorrow. No need for dialysis at this time as GFR is still above 15 but will continue to monitor renal panel closely. 05/08/2025 patient currently seen in telemetry. Resting comfortably. Potassium tad elevated at 5.2. Changed him to renal diet. Labs and medications have been reviewed. Sodium 145, potassium 5.2, chloride 113, bicarbonate 22.6, BUN 70, creatinine 3.3, GFR 19, phosphorus 5.8, calcium 9.4, LFTs normal 05/09/25: Patient seen and assessed in telemetry. Potassium improved to 5.0 (from 5.2). Pending AM cortisol, however low suspicion for adrenal insufficiency given elevated BP this AM. Sodium 145, chloride 110, BUN 68, creatinine 3.1, GFR 21, phosphorus 5.2, calcium 9.5. No need to restart cinacalcet as PTH only mildly elevated at 119. Reinaldo is medically stable for discharge from nephrology standpoint, recommend discharge with veltessa 8g daily and bicitra. Will follow up in clinic in 1 week after discharge with renal panel, will follow up AM cortisol level at that time. Exam Vital Signs Temp Pulse Resp BP Pulse Ox O2 Del Method 97.4 F 90 24 H 195/90 H 93 L Room Air 05/09/25 04:00 05/09/25 08:13 05/09/25 04:00 05/09/25 08:13 05/09/25 04:00 05/09/25 04:00 Narrative Exam Physical Exam General: Awake and in no acute distress. Conversational and non-toxic appearing. HEENT: Normocephalic, atraumatic, mucous membranes moist. Heart: Regular rate and rhythm, normal S1 and S2, no murmurs appreciated. Lungs: Clear to auscultation with no wheezing or crackles. Abdomen: Soft, nondistended, nontender, positive bowel sounds. Colostomy bag in place. No guarding or rebound tenderness. Neurologic: Alert and oriented x3, no gross neurological deficit, and patient able to move all 4 extremities. Extremities: 2+ pitting edema in lower extremities. Amputated right big and second toes. Skin: Erythematous, warm patch on left brady. No ecchymoses. Objective Labs 05/10/25 04:25 05/10/25 04:25 Labs: Laboratory Results - last 24 hr 05/07/25 05/08/25 05/09/25 04:24 15:22 06:11 WBC 8.0 RBC 3.21 L Hgb 10.0 L Hct 30.8 L MCV 96 MCH 31.2 MCHC 32.5 RDW Std Deviation 53.4 H Plt Count 70 L Neut % (Auto) 54 Lymph % (Auto) 31 [place] % (Auto) 10 Eos % (Auto) 3 Baso % (Auto) 1 Neut # (Auto) 4.3 Lymph # (Auto) 2.5 [place] # (Auto) 0.8 Eos # (Auto) 0.3 Baso # (Auto) 0.0 Immature Gran # (Auto) 0.06 H Absolute Nucleated RBC 0.00 Immature Gran % 1 H Nucleated RBC % 0 Sodium 145 145 Potassium 5.2 H 5.0 Chloride 113 H 110 H Carbon Dioxide 22.6 22.2 Anion Gap 9 13 BUN 70 H 68 H Creatinine 3.3 H 3.1 H Estim Creat Clear Calc 29.7 L 31.6 L eGFR 19 L 21 L BUN/Creatinine Ratio 21 H 22 H Glucose 115 H D 99 Calculated Osmolality 310 H 308 H Calcium 9.1 9.5 Corrected Calcium 9.4 9.7 Phosphorus 5.8 H 5.2 H Total Bilirubin 0.7 AST 33 ALT 36 Alkaline Phosphatase 92 Total Protein 6.3 Albumin 3.6 3.7 Globulin 2.6 Albumin/Globulin Ratio 1.4 PTH Intact 119.9 H Misc Test Result Platelets confirmed ABG Interpretation ABG results: 05/05/25 20:37 VBG pH 7.35 VBG pCO2 35 L VBG pO2 112 H VBG Base Excess -6 L Quality Measures Quality Measures VTE prophylaxis Advance care planning discussed with:: patient Assessment & Plan Assessment Current Active Medications: Generic Name Dose Route Start Last Admin Trade Name Freq PRN Reason Stop Dose Admin Acetaminophen 650 mg 05/05/25 19:24 Acetaminophen 325 Mg Tablet PO 06/04/25 19:23 Q6H PRN Fever >101.5 Amiodarone HCl 200 mg 05/06/25 09:00 05/09/25 08:11 Amiodarone Hcl 200 Mg Tablet PO 06/05/25 08:59 200 mg DAILY CINDI Administration Amlodipine Besylate 5 mg 05/06/25 09:00 05/09/25 08:13 Amlodipine Besylate 5 Mg Tablet PO 06/05/25 08:59 5 mg DAILY CINDI Administration Apixaban 2.5 mg 05/07/25 09:00 05/09/25 08:12 Apixaban 2.5 Mg Tablet PO 06/06/25 08:59 2.5 mg BID CINDI Administration Atorvastatin Calcium 10 mg 05/06/25 21:00 05/08/25 20:13 Atorvastatin Calcium 10 Mg Tablet PO 06/05/25 20:59 10 mg HS CINDI Administration Balsam [place] Oil 0 gm 05/06/25 10:00 05/09/25 08:14 Balsam [place] Oil (Venelex) 60 Gm Tube TOP 06/05/25 09:59 1 applicatio BID CINDI Administration Calcitriol 0.5 mcg 05/06/25 09:00 05/09/25 08:11 Calcitriol 0.25 Mcg Capsule PO 06/05/25 08:59 0.5 mcg QDAY CINDI Administration Citric Acid/Sodium Citrate 30 ml 05/07/25 09:30 05/09/25 08:13 Citric Acid/Sodium Citr 15 Ml Udc (Bicitra) PO 06/06/25 09:29 30 ml BID CINDI Administration Clotrimazole 0 gm 05/06/25 10:00 05/09/25 08:14 Clotrimazole Cr 1% 30 Gm Tube TOP 06/05/25 09:59 1 appl BID CINDI Administration Dextrose 25 ml 05/06/25 16:08 Dextrose 50%-Water Inj 50 Ml Syringe IV 06/05/25 16:07 Q15MIN PRN BG 50-70 responsive npo pt Dextrose 50 ml 05/06/25 16:08 Dextrose 50%-Water Inj 50 Ml Syringe IV 06/05/25 16:07 Q15MIN PRN BG <50 OR BG <70 & pt unresponsive Ferrous Sulfate 325 mg 05/06/25 09:00 05/09/25 08:12 Ferrous Sulf 325 Mg Tablet PO 06/05/25 08:59 325 mg QDAY CINDI Administration Furosemide 20 mg 05/08/25 15:15 05/09/25 08:12 Furosemide Inj 10 Mg/Ml Vial 2 Ml IVP 06/07/25 15:14 20 mg QDAY CINDI Administration Glucagon 1 mg 05/06/25 16:08 Glucagon Inj 1 Mg Vial IM Q15MIN PRN BG <70, and no IV access Ceftriaxone Sodium/Dextrose 1 gm in 50 mls @ 100 mls/hr 05/06/25 09:35 05/09/25 08:13 Rocephin/D5w 1gm Iv Premix IV 05/13/25 09:34 100 mls/hr QDAY CINDI Administration Dextrose 1,000 mls @ 80 mls/hr 05/08/25 10:45 05/08/25 23:52 D5w IV 06/07/25 10:44 80 mls/hr .[id number] CINDI Administration Insulin Human Lispro 0 unit 05/09/25 08:15 05/09/25 08:15 Insulin Lispro (Admelog) 1 Unit/0.01 Ml Unit SC 06/08/25 08:14 Not Given AC CINDI Protocol Sevelamer Carbonate 800 mg 05/06/25 08:00 05/07/25 12:01 Sevelamer Carbonate 800 Mg Tablet PO 06/05/25 07:59 800 mg On Hold: 05/07/25 15:09 TIDWM CINDI Administration Sodium Chloride 3 ml 05/06/25 16:51 Sodium Chloride Rt Apryl 0.9% 3 Ml Nebu INH 06/05/25 16:50 PRN PRN SOLN Vitamin B Complex/Vit C/Folic Acid 1 tab 05/06/25 09:00 05/09/25 08:11 Vit B12/Vit C/Fa (Nephrovite) Tablet PO 06/05/25 08:59 1 tab QDAY CINDI Administration Plan Patient is a 69-year-old male with history of HFpEF, A-fib, CAD status post CABG in 2018, DVT left lower extremity, ischemic colitis status post colostomy at [facility], insulin-dependent diabetes on 50 units presented to the ED around 1 PM with hypoglycemia and hypothermia, admitted to telemetry for further management. Was upgraded to ICU for further close monitoring for patient's hypothermia and hypoglycemia but downgraded back to telemetry due to resolution of hypothermia. Nephrology consulted for JULIAN, hyperkalemia, and acidosis. 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 #JULIAN on CKD IV - K 6.8 -> 6.1 --> 4.7 s/p albuterol, insulin, Kayexalate, and calcium gluconate. - Cr 2.9 --> 3.3 -> 3.4 - EKG shows sinus rhythm with first degree AV block, no peak T waves observed - Not quite sure on his hypothermia although his temperature seems to be better now. Creatinine stabilized. - Question adrenal insufficiency although should have hyponatremia. Lower suspicion now that patient is hypertensive. 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 Per chart review, levels were also intermittently elevated in the past but baseline appears to be within normal range. - Likely iso worsening JULIAN on CKD Plan: - Sevelemer 800 mg TID #Hx hyperparathyroidism - PTH elevated 140s-200s since 2018 - Calcium 9.6, within normal limits but previously low in November 2023 (7.7-8.1) - Parathyroid nuclear scan 02/17/2023 showed subtle increased isotope accumulation over right thyroid region - Soft tissue US 02/19/23 showed two vascular right thyroid nodules (upper 18 x 16 mm, lower 3.5 x 3.6 mm) but no parathyroid adenoma. FNA recommended at the time, unclear if this was completed. - Was on cinacalcet 60 mg but does not recall if he is still taking it - PTH 119 - Suspect secondary iso CKD Plan: - No need to restart cinacalcet #Hypothermia (resolved) #History of Heart failure with preserved ejection fraction (HFpEF) #CAD s/p CABG 2018 #A-fib #DVT #Bradycardia- resolved #HLD #S/p colostomy from ischemic colitis-stable #Severe recurrent hypoglycemia, better #Cellulitis #History of DVT #Generalized weakness - Defer to primary team for management Thank you for your consultation, please do not hesitate to reach out if you have any question or concern Patient plan of care was discussed with the attending physician, Dr. Vines. Tatynaa Stein DO, PGY-1 Attending Provider Attestation/Addendum Mr. Amezcua is a 69-year-old male with significant medical history for HTN, CAD s/p CABG (under Dr. Baum), HLD, T2DM, CKD IIIb, gout, obesity, secondary hyperparathyroidism (on calcitriol, Renvela), DVT in [facility], A-fib (on Eliquis), HFpEF and colon resection due to ischemic colitis s/p colostomy in [facility], was brought to ED from home with weakness and noted to have severe hypoglycemia needing D10 drip. He was also noted to be hypothermic and hypotensive needing ICU admission. Patient was given 1 dose of hydrocortisone this morning. Moved to ICU. Potassium was very high and was given a medical management. Renal consultation requested for JULIAN/hyperkalemia. He is one of my CKD patients. Spoke to ICU team-continue with medical management for hyperkalemia. If no improvement will consider temporary dialysis. Patient also seems to have hypoth ermia, hypotension, hyperkalemia and metabolic acidosis-question adrenal insufficiency. Will monitor his electrolytes closely. Patient got 200 mg of hydrocortisone. Will check cortisol levels off steroids for 24 hours. Continue with gentle IV fluids. 05/09/2025 patient currently seen in telemetry. Potassium today seems to be better. Hyponatremia and hypotension better. Hypoglycemia better. Will switch him to renal diet. Pending cortisol levels. Based on current labs-Doubt Adrenal insufficiency. Adjust electrolytes. Continue with p.o. fluids. Spoke to patient-wants to go to rehab. Care discussed with primary team.
[2025-05-09] MEDS: NIFEdipine XL 30 MG TABCR PO ×2 (10:46→15:15)
--- NOTE | 2025-05-09 11:24 | XR_ITS ---
EXAMINATION: AP chest single view TECHNIQUE: AP portable upright chest single view Date and time: May,, 1134 hours, comparison 12/04/2024 INDICATION: Shortness of breath today FINDINGS: Mild enlargement cardiac contour Median sternotomy wires Bilateral perihilar basilar pneumonia. Elevation right hemidiaphragm. Moderate vascular congestion IMPRESSION: Bilateral perihilar bibasilar pneumonia Moderate vascular congestion
--- NOTE | 2025-05-09 12:02 | ESPR_ITS ---
<Statement entered by Yesi Hopson MD - 05/21/25 09:23> I reviewed above note and agree with findings and plans. I have also personally examined the patient with medicine team and went over assessment and plan with medical team including research program intern and resident physician. <Statement entered by Sreekanth Blair MD - 05/09/25 18:09> Patient was examined and case was reviewed with team including attending physician. Note reviewed, I agree with most of its contents and agree with the patient's care as documented by Dr. Smith Patient seen today at the bedside found awake, alert, orientedx3. No overnight events reported. No active complaints stated. Vitals and labs reviewed. Will resume cinacalcet as recommended by Nephrology. Patients Blood pressure medications were adjusted and was started on Nifedipine for better BP control. At the time of discharge patient will be prescribed Veltassa and bicitra. Nephrology cleared the patient for discharge. Patient noted to have what seems to be left lower extremity cellulitis and doxycycline was added. Cortisol levels have been ordered for the past few days but difficult to obtain. Will follow with AM cortisol and possibly discharge in the next 24-48 hours. Case discussed with my attending Dr. Emiliana Blair MD PGY-2 Documentation for date of: 05/09/25 Subjective Subjective Interval history: No overnight events. Evaluated at bedside. The patient refers no pain. Potassium improved to 5.0 from 5.2. Per nephrology, no need to restart cinacalcet as PTH only mildly elevated. They recommend discharge with veltessa 8g daily and bicitra. Patient is stable for discharge from nephrology standpoint, however, patient was found to be hypertensive this morning with SBP of 190s, will start patient on nifedipine and discontinue home norvasc. Hydralazine 10mg x1 given. Will follow up with AM Cortisol level for suspected adrenal insufficiency. Added doxycycline for LLE cellulitis. Patient will likely be discharged tommorow if HTN is controlled. Exam Vital Signs Temp Pulse Resp BP Pulse Ox O2 Del Method 96.9 F 68 20 188/74 H 96 Room Air 05/09/25 08:00 05/09/25 10:46 05/09/25 08:00 05/09/25 10:46 05/09/25 08:00 05/09/25 08:00 Narrative Exam General: Awake and in no acute distress. A/O x 4. HEENT: Normocephalic, atraumatic, mucous membranes moist. Heart: Regular rate and rhythm Lungs: Clear to auscultation with no wheezing or crackles. Abdomen: Soft, nondistended, nontender. Colostomy bag in place. No guarding or rebound tenderness. Neurologic: Alert and oriented x3, no gross neurological deficit, and patient able to move all 4 extremities. Extremities: 2+ pitting edema in lower extremities. Amputated right big and second toes. Skin: Erythematous, warm patch on left brady. No ecchymoses. Objective Labs 05/09/25 06:11 05/09/25 06:11 Labs: Laboratory Results - last 24 hr 05/07/25 05/08/25 05/09/25 04:24 15:22 06:11 WBC 8.0 RBC 3.21 L Hgb 10.0 L Hct 30.8 L MCV 96 MCH 31.2 MCHC 32.5 RDW Std Deviation 53.4 H Plt Count 70 L Neut % (Auto) 54 Lymph % (Auto) 31 Terry % (Auto) 10 Eos % (Auto) 3 Baso % (Auto) 1 Neut # (Auto) 4.3 Lymph # (Auto) 2.5 Terry # (Auto) 0.8 Eos # (Auto) 0.3 Baso # (Auto) 0.0 Immature Gran # (Auto) 0.06 H Absolute Nucleated RBC 0.00 Immature Gran % 1 H Nucleated RBC % 0 Sodium 145 145 Potassium 5.2 H 5.0 Chloride 113 H 110 H Carbon Dioxide 22.6 22.2 Anion Gap 9 13 BUN 70 H 68 H Creatinine 3.3 H 3.1 H Estim Creat Clear Calc 29.7 L 31.6 L eGFR 19 L 21 L BUN/Creatinine Ratio 21 H 22 H Glucose 115 H D 99 Calculated Osmolality 310 H 308 H Calcium 9.1 9.5 Corrected Calcium 9.4 9.7 Phosphorus 5.8 H 5.2 H Total Bilirubin 0.7 AST 33 ALT 36 Alkaline Phosphatase 92 Total Protein 6.3 Albumin 3.6 3.7 Globulin 2.6 Albumin/Globulin Ratio 1.4 PTH Intact 119.9 H Misc Test Result Platelets confirmed ABG Interpretation ABG results: 05/05/25 20:37 VBG pH 7.35 VBG pCO2 35 L VBG pO2 112 H VBG Base Excess -6 L Quality Measures Quality Measures VTE prophylaxis Advance care planning discussed with:: patient Assessment & Plan Assessment Current Active Medications: Generic Name Dose Route Start Last Admin Trade Name Freq PRN Reason Stop Dose Admin Acetaminophen 650 mg 05/05/25 19:24 Acetaminophen 325 Mg Tablet PO 06/04/25 19:23 Q6H PRN Fever >101.5 Amiodarone HCl 200 mg 05/06/25 09:00 05/09/25 08:11 Amiodarone Hcl 200 Mg Tablet PO 06/05/25 08:59 200 mg DAILY CINDI Administration Apixaban 2.5 mg 05/07/25 09:00 05/09/25 08:12 Apixaban 2.5 Mg Tablet PO 06/06/25 08:59 2.5 mg BID CINDI Administration Atorvastatin Calcium 10 mg 05/06/25 21:00 05/08/25 20:13 Atorvastatin Calcium 10 Mg Tablet PO 06/05/25 20:59 10 mg HS CINDI Administration Balsam [place] Oil 0 gm 05/06/25 10:00 05/09/25 08:14 Balsam [place] Oil (Venelex) 60 Gm Tube TOP 06/05/25 09:59 1 applicatio BID CINDI Administration Calcitriol 0.5 mcg 05/06/25 09:00 05/09/25 08:11 Calcitriol 0.25 Mcg Capsule PO 06/05/25 08:59 0.5 mcg QDAY CINDI Administration Citric Acid/Sodium Citrate 30 ml 05/07/25 09:30 05/09/25 08:13 Citric Acid/Sodium Citr 15 Ml Udc (Bicitra) PO 06/06/25 09:29 30 ml BID CINDI Administration Clotrimazole 0 gm 05/06/25 10:00 05/09/25 08:14 Clotrimazole Cr 1% 30 Gm Tube TOP 06/05/25 09:59 1 appl BID CINDI Administration Dextrose 25 ml 05/06/25 16:08 Dextrose 50%-Water Inj 50 Ml Syringe IV 06/05/25 16:07 Q15MIN PRN BG 50-70 responsive npo pt Dextrose 50 ml 05/06/25 16:08 Dextrose 50%-Water Inj 50 Ml Syringe IV 06/05/25 16:07 Q15MIN PRN BG <50 OR BG <70 & pt unresponsive Doxycycline Hyclate 100 mg 05/09/25 21:00 Doxycycline 100 Mg Tablet PO 05/16/25 20:59 BID CINDI Ferrous Sulfate 325 mg 05/06/25 09:00 05/09/25 08:12 Ferrous Sulf 325 Mg Tablet PO 06/05/25 08:59 325 mg QDAY CINDI Administration Furosemide 20 mg 05/08/25 15:15 05/09/25 08:12 Furosemide Inj 10 Mg/Ml Vial 2 Ml IVP 06/07/25 15:14 20 mg QDAY CINDI Administration Glucagon 1 mg 05/06/25 16:08 Glucagon Inj 1 Mg Vial IM Q15MIN PRN BG <70, and no IV access Ceftriaxone Sodium/Dextrose 1 gm in 50 mls @ 100 mls/hr 05/06/25 09:35 05/09/25 08:13 Rocephin/D5w 1gm Iv Premix IV 05/13/25 09:34 100 mls/hr QDAY CINDI Administration Dextrose 1,000 mls @ 80 mls/hr 05/08/25 10:45 05/08/25 23:52 D5w IV 06/07/25 10:44 80 mls/hr .[id number] CINDI Administration Insulin Human Lispro 0 unit 05/09/25 08:15 05/09/25 11:36 Insulin Lispro (Admelog) 1 Unit/0.01 Ml Unit SC 06/08/25 08:14 Not Given AC [facility] Protocol Nifedipine 30 mg 05/09/25 10:15 05/09/25 10:46 Nifedipine Xl 30 Mg Tabcr PO 06/08/25 10:14 30 mg QDAY CINDI Administration Sevelamer Carbonate 800 mg 05/06/25 08:00 05/07/25 12:01 Sevelamer Carbonate 800 Mg Tablet PO 06/05/25 07:59 800 mg On Hold: 05/07/25 15:09 TIDWM CINDI Administration Sodium Chloride 3 ml 05/06/25 16:51 Sodium Chloride Rt Apryl 0.9% 3 Ml Nebu INH 06/05/25 16:50 PRN PRN SOLN Vitamin B Complex/Vit C/Folic Acid 1 tab 05/06/25 09:00 05/09/25 08:11 Vit B12/Vit C/Fa (Nephrovite) Tablet PO 06/05/25 08:59 1 tab QDAY CINDI Administration Plan This is a 69-year-old male with HFpEF, A-fib on Eliquis, CAD, DVT, ischemic colitis, and insulin-dependent diabetes presented with hypoglycemia, hypothermia, and hyperkalemia admitted to the ICU for monitoring. He was downgraded to [facility]Sur on 05/07/25 for management of JULIAN with the help of nephrology team. #Acute metabolic encephalopathy (resolving) #Concern for adrenal insufficiency Per admission note, he presented with nausea and spacing out, likely in settings of uremia, hypoglycemia, hypothermia and bradycardia. There may be a infectious component given cellulitis, however currently he is aseptic with normal lactic acid since admission, UA is negative for UTI. Other underlying causes ruled out including acute blood loss, relatively normal blood gas, and normal thyroid function. No focal neurological deficits noted on exam, low suspicion for CVA and CT head was deferred. [employer] Program Technician team had concerns for adrenal sufficiency, appropriately given above-mentioned electrolyte abnormality and bradycardia. He was given a trial of STEROIDS which are currently held. Symptoms appear to have resolved. Currently he feels slightly weak but otherwise alert and oriented x 4 and tolerating oral intake without current complaint. ? Monitoring and treating underlying cause ? Pending morning CORTISOL #Severe hyperkalemia (stable) #Recurrent hyperkalemia #Hyperphosphatemia (stable) #Hx of hyperparathyrodism Admission potassium 7.[address] changes on EKG. Likely worsening renal function as he is on home SEVELAMER. He was given a round of cocktail with slight improvement of potassium to 6.8. ICU also given another round of hyperkalemia cocktail. Admission phosphorus 6.6, improved to 5.6 with SEVELAMER. He has previous findings of increased parathyroid nuclear scan isotope uptake as well as nodular parathyroid adenoma on ultrasound for which FNA was recommended but was not done. He also has previous findings of elevated PTH. Gave 1 dose KAYEXALATE x 1 for potassium 5.2. ? Daily CMP ? Continue SEVELAMER 800 mg TID ? 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 Vines outpatient. On presentation, renal function appears stage IV, likely dehydration vs. overall worsening renal function. He had anion gap of 11, bicarb 19 and pCO2 19 with chloride 117, suggestive of hyperchloremic metabolic acidosis. Urine gap was also elevated 5.7, possible type IV RTA. Will continue with medical management following nephrology recommendations. No plan for dialysis at this point, pending further recommendations. - Renally dose meds, avoid overdiuresis and NEPHROTOXINS - Daily CMP - Continue Bicitra 30 mg BID - Hold spiranolactone and potassium #Acute hypoglycemia (resolved) #IDDM On admission, GLUCOSE 30s requiring D10 drip and ICU admission. Presentation to have preceded home INSULIN injection. However there may be a component of poor eating as he reports intolerance to low-carb diet. Currently off D10, blood GLUCOSE within normal limits. A1c 5.4 from 10/2024. Unclear he needs INSULIN regimen going forward, and will need better glycemic control prior to discharge. ? Carb consistent diet ? Avoid hypoglycemia ? INSULIN sliding scale ? Accu-Cheks #Paroxysmal atrial fibrillation, rate controlled Chronic, currently in sinus rhythm, rate controlled. ? Continue home ELIQUIS 2.5 mg BID ? Continue home AMIODARONE 200 mg daily #Acute on chronic anemia Likely CKD, hemoglobin near baseline. No signs or symptoms of abnormal bleed. ? Continue to monitor ? Continue FERROUS SULFATE 325 mg daily #LLE cellulitis #History of DVT Presents with distal left lower extremity cellulitis which appears to be preceding with current ANTIBIOTICS. Remains aseptic. - Continue Ceftriaxone (05/06/25 ~ 05/13/25) - Start doxycycline (05/09/25 ~ 05/16/25) - Continue home ELIQUIS #HTN #HLD #Bradycardia (resolved) He had a single, no recurrent episode of bradycardia at 57, EKG showed heart rate [address] changes. - Chronic medical problems - Continue monitoring - Held home AMLODIPINE 5 mg daily, started on Nifedipine 30mg QD per nephrology recommendation for HTN. - Continue home ATORVASTATIN 10 mg HS #Cough Reports mild cough which appears to have improving. Less suspicion for pneumonia based on CXR. He received a dose of CEFTRIAXONE and DOXYCYCLINE. - Rpt CXR on 05/09/25 shows no significant change compare to prior CXR on 05/06/25 - Continue Ceftriaxone (05/06/25 ~ 05/13/25) - Start doxycycline (05/09/25 ~ 05/16/25) #HFpEF (stable) #CAD s/p CABG 2018 (stable) #Hx ischemic colitis, s/p PEG tube (stable) No signs of CHF exacerbation. - Chronic medical problem - Continue monitoring - Contiunue LASIX 20 mg daily for LE edema. Health maintenance Dispo: BP control, likely DC tmr. DVT prophylaxis: Eliquis GI prophylaxis: Not indicated Antibiotics: Ceftriaxone and Doxycycline Diet: CHO consistent Lines: Peripheral IV, Rowe Cath Code status: Full code Case discussed with my senior resident Dr. Krueger Case discussed with my attending Dr. Emiliana Formanh, DO PGY 1
[2025-05-09] MEDS: DEXTROSE 5%-WATER 1,000 ML 80 ML IV (12:25)
[2025-05-09] MEDS: hydrALAZINE INJ 20 MG/ML VIAL 10 MG IVP (12:54)
--- NOTE | 2025-05-09 15:04 | PC.SS ---
Update: Plan is to continue to address patient's blood pressure. Possible d/c tomorrow.
[2025-05-09] MEDS: ATORVASTATIN CALCIUM 10 MG TABLET PO (21:16)
[2025-05-09] MEDS: DOXYCYCLINE 100 MG TABLET PO (21:16)
[2025-05-10] VITALS (13 sets, daily range): BP systolic 133–176; BP diastolic 55–82; PULSE 65–87; RESP 15–20; TEMP 34.6–36.8; O2SAT 92–99; BMI 48.2
[2025-05-10] MEDS: DEXTROSE 5%-WATER 1,000 ML 80 ML IV (01:36)
[2025-05-10] MEDS: ALBUTEROL/IPRATROPIUM (Duoneb) RT SOL 3 ML NEBU INH (03:04)
[2025-05-10 05:17] LABS: Basophils # (Auto) 0.0 Thou/mm3 (0.0-0.2); Basophils % (Auto) 0 % (0-2.5); Eosinophils # (Auto) 0.2 Thou/mm3 (0.0-0.5); Eosinophils % (Auto) 3 % (0-10); Hematocrit 29.2 % (41.0-53.0); Hemoglobin 9.6 g/dL (13.5-16.0); Immature Granulocytes Auto 0.08 Thou/mm3 (0.00-0.00); Lymphocytes # (Auto) 2.0 Thou/mm3 (1.0-4.8); Lymphocytes % (Auto) 28 % (10-50); Mean Corpuscular HGB Conc 32.9 g/dl (31.0-37.0); Mean Corpuscular Hemoglobin 31.1 pg (25.0-35.0); Mean Corpuscular Volume 95 fL (80-100); Monocytes # (Auto) 0.8 Thou/mm3 (0.0-0.8); Monocytes % (Auto) 11 % (0-12); Neutrophils # (Auto) 4.1 Thou/mm3 (1.8-7.7); Neutrophils % (Auto) 56 % (37-80); Nucleated Red Blood Cell # 0.02 Thou/mm3 (0.00-0.00); Nucleated Red Blood Cell % 0 /100 WBC (0); RDW Standard Deviation 51.9 fL (35.1-43.9); Red Blood Count 3.09 Miln/mm3 (4.50-5.90); White Blood Count 7.4 Thou/mm3 (3.8-10.6)
[2025-05-10 05:43] LABS: Platelet Count 72 Thou/mm3 (140-440)
[2025-05-10 05:46] LABS: Slide Review Platelets confirmed
[2025-05-10 05:56] LABS: Alanine Aminotransferase 30 U/L (10-49); Albumin, Serum 3.6 gm/dL (3.4-4.8); Albumin/Globulin Ratio 1.4 (1.2-2.2); Alkaline Phosphatase 89 U/L (46-116); Anion Gap 11 (7-16); Aspartate Amino Transferase 25 U/L (0-34); BUN/Creatinine Ratio 24 Ratio (12-20); Bilirubin,Total 0.9 mg/dL (0.3-1.2); Blood Urea Nitrogen 66 mg/dL (9-23); Calcium 9.4 mg/dL (8.3-10.6); Calcium (Corrected) 9.7 mg/dL (8.5-10.1); Carbon Dioxide 23.6 mMol/L (20.0-31.0); Chloride 107 mMol/L (98-107); Creatinine (Component) 2.8 mg/dL (0.6-1.3); Estimated Creatinine Clearance 38.0 mL/min (>60); Globulin 2.6 gm/dL (2.3-3.5); Glucose 108 mg/dL (74-106); Magnesium 1.4 mg/dL (1.6-2.6); Osmolality,Calculated 303 (275-295); Phosphorous 5.2 mg/dL (2.4-5.1); Potassium 4.9 mMol/L (3.4-5.1); Sodium 142 mMol/L (136-145); Total Protein 6.2 gm/dL (5.7-8.2); eGFR 23 See Note
[2025-05-10] MEDS: Magnesium Sulfate 2 GM Ivpb 2 GM/50 ML BAG IV (06:38)
[2025-05-10] MEDS: FUROSEMIDE INJ 10 MG/ML VIAL 2 ML 20 MG IVP (08:40)
[2025-05-10] MEDS: cefTRIAXone/D5w 1gm IV premix 1 GM/50 ML BAG IV (08:40)
[2025-05-10] MEDS: NIFEdipine XL 30 MG TABCR 60 MG PO (08:41)
[2025-05-10] MEDS: VIT B12/Vit C/FA (Nephrovite) TABLET 1 TAB PO (08:42)
[2025-05-10] MEDS: FERROUS SULF 325 MG TABLET PO (08:42)
[2025-05-10] MEDS: SEVELAMER CARBONATE 800 MG TABLET PO ×3 (08:42→18:24)
[2025-05-10] MEDS: DOXYCYCLINE 100 MG TABLET PO ×2 (08:42→21:35)
[2025-05-10] MEDS: AMIODARONE HCL 200 MG TABLET PO (08:42)
[2025-05-10] MEDS: APIXABAN 2.5 MG TABLET PO ×2 (08:43→21:35)
[2025-05-10] MEDS: CLOTRIMAZOLE CR 1% 30 GM TUBE TOP ×2 (08:44→21:36)
[2025-05-10] MEDS: BALSAM PERU/CASTOR OIL (Venelex) 60 GM TUBE TOP ×2 (08:44→21:36)
[2025-05-10] MEDS: ferumoxytoL (NON-ESRD) 510 MG in SODIUM CHLORIDE 0.9% 100 ML 234 MG IV (09:04)
--- NOTE | 2025-05-10 09:12 | PD.RESPRO ---
Documentation for date of: 05/10/25 Subjective Subjective Interval history: Mr. Amezcua is a 69-year-old male with history of Heart failure preserved ejection fraction, A-fib, CAD status post CABG in 2018, DVT left lower extremity, ischemic colitis status post colostomy at [facility], insulin-dependent diabetes on 50 units presented to the ED around 1 PM with hypoglycemia and hypothermia. Per patient's and patient, patient was following his normal routine of waking up at 10 AM and went to the restroom. After sitting on his commode, patient was unable to get off the commode. At 10:10 AM patient's found him looking spacey and lethargic. She also noticed that he was ice cold to touch. She took a blood sugar which was 89 and after a glass of juice repeat blood glucose was 5910 minutes later. She decided to call the ambulance at 11 AM to bring him to the hospital. Patient states that he only felt wobbly, mild cough and weak the day prior however denies any other symptoms of nausea, vomiting, headache, body aches, fevers, chills, or recent travel. ED course: Significant vitals on arrival: Blood pressure 162/70, heart rate of 38, temperature of 88 ?F; significant labs for low glucose of 40, elevated BUN at 65, bicarb 19.3, creatinine 2.9, elevated LFTs Imaging: Chest x-ray showed early pneumonia left base, EKG showed bradycardia rate of [address] segment changes In the ED: Terry fernandez, Patient received dextrose, albuterol 15 mg, calcium chloride 10 mg, 50 mill EQ of sodium bicarb, 8 units of insulin, 2 g ceftriaxone, sodium polystyrene sulfonate 15 GM p.o. x 1 Patient was initially admitted to telemetry for further management of patient's hypothermia and hypoglycemia however despite being on D10 at 50 mL/hr dropped from 1 25-78 despite eating 2 puddings. At this time, patient will be upgraded to ICU for further close monitoring for patient's hypothermia and hypoglycemia. Nephrology consulted for hyperkalemia in setting of JULIAN, as well as NAGMA. 05/06/25: Patient seen and assessed at bedside. No complaints. AOx3 on exam. Potassium 7.3 this AM, worsened since admission despite hyperkalemia cocktail. Slowly improving with additional Kayexalate and paritomer. Chloride elevated at 116, BUN 54, Cr 3.2 (baseline 2.3-2.6 in 2023). Anion gap 10. Will continue pharmacological management for hyperkalemia, however if fails to improve, patient will likely need dialysis tomorrow. 05/07/25: Patient was seen and assessed at bedside on telemetry. Feeling better and more conversational. Potassium improved to 4.7 s/p additional Kayexelate and parotimer. BUN 75, Cr stable at 3.4. GFR 19. Phosphorus 6.0, continue sevelemer 800 mg TID. Bicarb improved s/p bicarb amp. 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 Follow up PTH. Per chart review, patient was previously on cinacalcet 60 mg for hyperparathyroidism but patient does not recall if he has been taking it. Will likely need to restart. Follow up AM cortisol tomorrow. No need for dialysis at this time as GFR is still above 15 but will continue to monitor renal panel closely. 05/08/2025 patient currently seen in telemetry. Resting comfortably. Potassium tad elevated at 5.2. Changed him to renal diet. Labs and medications have been reviewed. Sodium 145, potassium 5.2, chloride 113, bicarbonate 22.6, BUN 70, creatinine 3.3, GFR 19, phosphorus 5.8, calcium 9.4, LFTs normal 05/09/25: Patient seen and assessed in telemetry. Potassium improved to 5.0 (from 5.2). Pending AM cortisol, however low suspicion for adrenal insufficiency given elevated BP this AM. Sodium 145, potassium 5.0, chloride 110, BUN 68, creatinine 3.1, GFR 21, phosphorus 5.2, calcium 9.5. No need to restart cinacalcet as PTH only mildly elevated at 119. Patient is medically stable for discharge from nephrology standpoint, recommend discharge with veltessa 8g daily and bicitra. Will follow up in clinic in 1 week after discharge with renal panel, will follow up AM cortisol level at that time. 05/10/25: Patient seen and assessed in telemetry. UOP 3.7L. Temp 94.3 overnight, 95.1F rectal. Improved on Terry hugger. Started hydralazine 10 TID and increased nifedipine to 60 daily, systolics improved to 130s. Potassium 4.9, BUN 66, creatinine 2.8, GFR 23, phosphorus 5.2, magnesium 1.4, repleted. No need for dialysis. Pending AM cortisol. Exam Vital Signs Temp Pulse Resp BP Pulse Ox O2 Del Method 96.9 F 75 19 133/55 H 94 L Room Air 05/10/25 04:00 05/10/25 08:42 05/10/25 04:00 05/10/25 08:42 05/10/25 04:00 05/10/25 04:00 Narrative Exam Physical Exam General: Awake and in no acute distress. Conversational and non-toxic appearing. HEENT: Normocephalic, atraumatic, mucous membranes moist. Heart: Regular rate and rhythm, normal S1 and S2, no murmurs appreciated. Lungs: Mild bibasilar crackles. Abdomen: Soft, nondistended, nontender, positive bowel sounds. Colostomy bag in place. No guarding or rebound tenderness. Neurologic: Alert and oriented x3, no gross neurological deficit, and patient able to move all 4 extremities. Extremities: 1+ pitting edema in lower extremities. Amputated right big and second toes. Skin: Erythematous, warm patch on left brady, improving. No ecchymoses. Objective Labs 05/10/25 04:25 05/10/25 04:25 Labs: Laboratory Results - last 24 hr 05/10/25 04:25 WBC 7.4 RBC 3.09 L Hgb 9.6 L Hct 29.2 L MCV 95 MCH 31.1 MCHC 32.9 RDW Std Deviation 51.9 H Plt Count 72 L Neut % (Auto) 56 Lymph % (Auto) 28 [place] % (Auto) 11 Eos % (Auto) 3 Baso % (Auto) 0 Neut # (Auto) 4.1 Lymph # (Auto) 2.0 [place] # (Auto) 0.8 Eos # (Auto) 0.2 Baso # (Auto) 0.0 Immature Gran # (Auto) 0.08 H Absolute Nucleated RBC 0.02 H Immature Gran % 1 H Nucleated RBC % 0 Sodium 142 Potassium 4.9 Chloride 107 Carbon Dioxide 23.6 Anion Gap 11 BUN 66 H Creatinine 2.8 H Estim Creat Clear Calc 38.0 L eGFR 23 L BUN/Creatinine Ratio 24 H Glucose 108 H Calculated Osmolality 303 H Calcium 9.4 Corrected Calcium 9.7 Phosphorus 5.2 H Magnesium 1.4 L Total Bilirubin 0.9 AST 25 ALT 30 Alkaline Phosphatase 89 Total Protein 6.2 Albumin 3.6 Globulin 2.6 Albumin/Globulin Ratio 1.4 Misc Test Result Platelets confirmed ABG Interpretation ABG results: 05/05/25 20:37 VBG pH 7.35 VBG pCO2 35 L VBG pO2 112 H VBG Base Excess -6 L Quality Measures Quality Measures VTE prophylaxis Advance care planning discussed with:: patient Assessment & Plan Assessment Current Active Medications: Generic Name Dose Route Start Last Admin Trade Name Freq PRN Reason Stop Dose Admin Acetaminophen 650 mg 05/05/25 19:24 Acetaminophen 325 Mg Tablet PO 06/04/25 19:23 Q6H PRN Fever >101.5 Amiodarone HCl 200 mg 05/06/25 09:00 05/10/25 08:42 Amiodarone Hcl 200 Mg Tablet PO 06/05/25 08:59 200 mg DAILY CINDI Administration Apixaban 2.5 mg 05/07/25 09:00 05/10/25 08:43 Apixaban 2.5 Mg Tablet PO 06/06/25 08:59 2.5 mg BID CINDI Administration Atorvastatin Calcium 10 mg 05/06/25 21:00 05/09/25 21:16 Atorvastatin Calcium 10 Mg Tablet PO 06/05/25 20:59 10 mg HS CINDI Administration Balsam [place] Oil 0 gm 05/06/25 10:00 05/10/25 08:44 Balsam [place] Oil (Venelex) 60 Gm Tube TOP 06/05/25 09:59 1 applicatio BID CINDI Administration Calcitriol 0.5 mcg 05/06/25 09:00 05/10/25 08:43 Calcitriol 0.25 Mcg Capsule PO 06/05/25 08:59 0.5 mcg QDAY CINDI Administration Clotrimazole 0 gm 05/06/25 10:00 05/10/25 08:44 Clotrimazole Cr 1% 30 Gm Tube TOP 06/05/25 09:59 1 appl BID CINDI Administration Dextrose 25 ml 05/06/25 16:08 Dextrose 50%-Water Inj 50 Ml Syringe IV 06/05/25 16:07 Q15MIN PRN BG 50-70 responsive npo pt Dextrose 50 ml 05/06/25 16:08 Dextrose 50%-Water Inj 50 Ml Syringe IV 06/05/25 16:07 Q15MIN PRN BG <50 OR BG <70 & pt unresponsive Doxycycline Hyclate 100 mg 05/09/25 21:00 05/10/25 08:42 Doxycycline 100 Mg Tablet PO 05/16/25 20:59 100 mg BID CINDI Administration Ferrous Sulfate 325 mg 05/06/25 09:00 05/10/25 08:42 Ferrous Sulf 325 Mg Tablet PO 06/05/25 08:59 325 mg QDAY CINDI Administration Furosemide 20 mg 05/08/25 15:15 05/10/25 08:40 Furosemide Inj 10 Mg/Ml Vial 2 Ml IVP 06/07/25 15:14 20 mg QDAY CINDI Administration Glucagon 1 mg 05/06/25 16:08 Glucagon Inj 1 Mg Vial IM Q15MIN PRN BG <70, and no IV access Hydralazine HCl 10 mg 05/09/25 22:00 05/10/25 05:42 Hydralazine Hcl 10 Mg Tablet PO 06/08/25 21:59 10 mg TID CINDI Administration Ceftriaxone Sodium/Dextrose 1 gm in 50 mls @ 100 mls/hr 05/06/25 09:35 05/10/25 08:40 Rocephin/D5w 1gm Iv Premix IV 05/13/25 09:34 100 mls/hr QDAY CINDI Administration Dextrose 1,000 mls @ 80 mls/hr 05/08/25 10:45 05/10/25 01:36 D5w IV 06/07/25 10:44 80 mls/hr .[id number] CINDI Administration Insulin Human Lispro 0 unit 05/09/25 08:15 05/09/25 17:22 Insulin Lispro (Admelog) 1 Unit/0.01 Ml Unit SC 06/08/25 08:14 Not Given AC [facility] Protocol Nifedipine 60 mg 05/10/25 09:00 05/10/25 08:41 Nifedipine Xl 30 Mg Tabcr PO 06/09/25 08:59 60 mg QDAY CINDI Administration Patiromer 8.4 gm 05/10/25 09:00 Patiromer Calcium 8.4 Gm Packet PO 06/09/25 08:59 2 X WEEKLY CINDI Sevelamer Carbonate 800 mg 05/06/25 08:00 05/10/25 08:42 Sevelamer Carbonate 800 Mg Tablet PO 06/05/25 07:59 800 mg TIDWM CINDI Administration Sodium Chloride 3 ml 05/06/25 16:51 Sodium Chloride Rt Apryl 0.9% 3 Ml Nebu INH 06/05/25 16:50 PRN PRN SOLN Vitamin B Complex/Vit C/Folic Acid 1 tab 05/06/25 09:00 05/10/25 08:42 Vit B12/Vit C/Fa (Nephrovite) Tablet PO 06/05/25 08:59 1 tab QDAY CINDI Administration Plan Patient is a 69-year-old male with history of HFpEF, A-fib, CAD status post CABG in 2018, DVT left lower extremity, ischemic colitis status post colostomy at [facility], insulin-dependent diabetes on 50 units presented to the ED around 1 PM with hypoglycemia and hypothermia, admitted to telemetry for further management. Was upgraded to ICU for further close monitoring for patient's hypothermia and hypoglycemia but downgraded back to telemetry due to resolution of hypothermia. Nephrology consulted for JULIAN, hyperkalemia, and acidosis. 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 Creatinine stabilized. - Question adrenal insufficiency although should have hyponatremia. Lower suspicion now that patient is hypertensive. 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 - Per chart review, levels were also intermittently elevated in the past but baseline appears to be within normal range. - Likely iso worsening JULIAN on CKD Plan: - Sevelemer 800 mg TID #Hx hyperparathyroidism - PTH elevated 140s-200s since 2018 - Calcium 9.6, within normal limits but previously low in November 2023 (7.7-8.1) - Parathyroid nuclear scan 02/17/2023 showed subtle increased isotope accumulation over right thyroid region - Soft tissue US 02/19/23 showed two vascular right thyroid nodules (upper 18 x 16 mm, lower 3.5 x 3.6 mm) but no parathyroid adenoma. FNA recommended at the time, unclear if this was completed. - Was on cinacalcet 60 mg but does not recall if he is still taking it - PTH 119 - Suspect secondary iso CKD Plan: - No need to restart cinacalcet #Hypothermia #History of Heart failure with preserved ejection fraction (HFpEF) #CAD s/p CABG 2018 #A-fib #DVT #Bradycardia- resolved #HLD #S/p colostomy from ischemic colitis-stable #Severe recurrent hypoglycemia, better #Cellulitis #History of DVT #Generalized weakness - Defer to primary team for management Thank you for your consultation, please do not hesitate to reach out if you have any question or concern Patient plan of care was discussed with the attending physician, Dr. Vines. Tatyana Stein DO, PGY-1 Attending Provider Attestation/Addendum Patient seen and examined with resident physician Dr. Stein. Note reviewed, agree with findings and recommendations. BUN and creatinine improving. Electrolyte seems to be better patient today seems to be still hypothermic. Blood pressure on the higher side. Adjust BP medications. Discharge planning to rehab once stable. DC IV fluids. Will give 1 dose of Lasix. Clinically seems to be on the hypovolemic side. Replace magnesium.
--- NOTE | 2025-05-10 09:47 | ESPR_ITS ---
<Statement entered by Sreekanth Blair MD - 05/11/25 12:45> Patient was examined and case was reviewed with team including attending physician. Note reviewed, I agree with most of its contents and agree with the patient's care as documented by Dr. Smith Patient seen today at the bedside found awake, alert, orientedx3. Overnight patient became hypothermic and required to be placed on bairhugger. Vital signs and labs reviewed. Possible discharge in the next 24-48hours. Case discussed with my attending Dr. Ana Blair MD PGY-2 Documentation for date of: 05/10/25 Subjective Subjective Interval history: This is a 69-year-old male with HFpEF, A-fib on Eliquis, CAD, DVT, ischemic colitis, and insulin-dependent diabetes presented with hypoglycemia, hypothermia, and hyperkalemia admitted to the ICU for monitoring. He was downgraded to MedSurg on 05/07/25 for management of JULIAN with the help of nephrology team. 05/09/25: No overnight events. Evaluated at bedside. The patient refers no pain. Potassium improved to 5.0 from 5.2. Per nephrology, no need to restart cinacalcet as PTH only mildly elevated. They recommend discharge with veltessa 8g daily and bicitra. Patient is stable for discharge from nephrology standpoint, however, patient was found to be hypertensive this morning with SBP of 190s, will start patient on nifedipine and discontinue home norvasc. Hydralazine 10mg x1 given. Will follow up with AM Cortisol level for suspected adrenal insufficiency. Added doxycycline for LLE cellulitis. Patient will likely be discharged tommorow if HTN is controlled. 05/10/25: Hypothermic (temp 94.3) overnight, freda fernandez added. Duoneb was also given due to complaint of subjective wheezing. Patient was started on hydralazine PO 10mg TID and increased nifedipine to 60mg PO daily for better BP control. Cortisol level still pending (sent-out lab). PT recommended SNF for dispo. Patient wishes to go to [facility] if possible. At this point, unsure what's contributing to patient's hypothermia, plan to obs patient for another 24H. Exam Vital Signs Temp Pulse Resp BP Pulse Ox O2 Del Method 98.2 F 75 19 133/55 H 94 L Room Air 05/10/25 08:00 05/10/25 08:42 05/10/25 08:00 05/10/25 08:42 05/10/25 08:00 05/10/25 08:00 Narrative Exam General: Awake and in no acute distress. A/O x 3. HEENT: Normocephalic, atraumatic. Heart: Regular rate and rhythm Lungs: Clear to auscultation with no wheezing or crackles. Abdomen: Soft, nondistended, nontender. Colostomy bag in place. No guarding or rebound tenderness. Neurologic: Alert and oriented x3, no gross neurological deficit, and patient able to move all 4 extremities. Extremities: 1+ pitting edema in lower extremities. Amputated right big and second toes. Skin: Erythematous, warm patch on left brady. No ecchymoses. Objective Labs 05/11/25 04:25 05/11/25 04:25 Labs: Laboratory Results - last 24 hr 05/10/25 04:25 WBC 7.4 RBC 3.09 L Hgb 9.6 L Hct 29.2 L MCV 95 MCH 31.1 MCHC 32.9 RDW Std Deviation 51.9 H Plt Count 72 L Neut % (Auto) 56 Lymph % (Auto) 28 Emery % (Auto) 11 Eos % (Auto) 3 Baso % (Auto) 0 Neut # (Auto) 4.1 Lymph # (Auto) 2.0 Emery # (Auto) 0.8 Eos # (Auto) 0.2 Baso # (Auto) 0.0 Immature Gran # (Auto) 0.08 H Absolute Nucleated RBC 0.02 H Immature Gran % 1 H Nucleated RBC % 0 Sodium 142 Potassium 4.9 Chloride 107 Carbon Dioxide 23.6 Anion Gap 11 BUN 66 H Creatinine 2.8 H Estim Creat Clear Calc 38.0 L eGFR 23 L BUN/Creatinine Ratio 24 H Glucose 108 H Calculated Osmolality 303 H Calcium 9.4 Corrected Calcium 9.7 Phosphorus 5.2 H Magnesium 1.4 L Total Bilirubin 0.9 AST 25 ALT 30 Alkaline Phosphatase 89 Total Protein 6.2 Albumin 3.6 Globulin 2.6 Albumin/Globulin Ratio 1.4 Misc Test Result Platelets confirmed ABG Interpretation ABG results: 05/05/25 20:37 VBG pH 7.35 VBG pCO2 35 L VBG pO2 112 H VBG Base Excess -6 L Quality Measures Quality Measures VTE prophylaxis Advance care planning discussed with:: patient Assessment & Plan Assessment Current Active Medications: Generic Name Dose Route Start Last Admin Trade Name Eran PRN Reason Stop Dose Admin Acetaminophen 650 mg 05/05/25 19:24 Acetaminophen 325 Mg Tablet PO 06/04/25 19:23 Q6H PRN Fever >101.5 Amiodarone HCl 200 mg 05/06/25 09:00 05/10/25 08:42 Amiodarone Hcl 200 Mg Tablet PO 06/05/25 08:59 200 mg DAILY CINDI Administration Apixaban 2.5 mg 05/07/25 09:00 05/10/25 08:43 Apixaban 2.5 Mg Tablet PO 06/06/25 08:59 2.5 mg BID CINDI Administration Atorvastatin Calcium 10 mg 05/06/25 21:00 05/09/25 21:16 Atorvastatin Calcium 10 Mg Tablet PO 06/05/25 20:59 10 mg HS CINDI Administration Balsam Madhuri/[place] Oil 0 gm 05/06/25 10:00 05/10/25 08:44 Balsam [place] Oil (Venelex) 60 Gm Tube TOP 06/05/25 09:59 1 applicatio BID CINDI Administration Calcitriol 0.5 mcg 05/06/25 09:00 05/10/25 08:43 Calcitriol 0.25 Mcg Capsule PO 06/05/25 08:59 0.5 mcg QDAY CINDI Administration Clotrimazole 0 gm 05/06/25 10:00 05/10/25 08:44 Clotrimazole Cr 1% 30 Gm Tube TOP 06/05/25 09:59 1 appl BID CINDI Administration Dextrose 25 ml 05/06/25 16:08 Dextrose 50%-Water Inj 50 Ml Syringe IV 06/05/25 16:07 Q15MIN PRN BG 50-70 responsive npo pt Dextrose 50 ml 05/06/25 16:08 Dextrose 50%-Water Inj 50 Ml Syringe IV 06/05/25 16:07 Q15MIN PRN BG <50 OR BG <70 & pt unresponsive Doxycycline Hyclate 100 mg 05/09/25 21:00 05/10/25 08:42 Doxycycline 100 Mg Tablet PO 05/16/25 20:59 100 mg BID CINDI Administration Ferrous Sulfate 325 mg 05/06/25 09:00 05/10/25 08:42 Ferrous Sulf 325 Mg Tablet PO 06/05/25 08:59 325 mg QDAY CINDI Administration Furosemide 20 mg 05/08/25 15:15 05/10/25 08:40 Furosemide Inj 10 Mg/Ml Vial 2 Ml IVP 06/07/25 15:14 20 mg QDAY CINDI Administration Glucagon 1 mg 05/06/25 16:08 Glucagon Inj 1 Mg Vial IM Q15MIN PRN BG <70, and no IV access Hydralazine HCl 10 mg 05/09/25 22:00 05/10/25 05:42 Hydralazine Hcl 10 Mg Tablet PO 06/08/25 21:59 10 mg TID CINDI Administration Ceftriaxone Sodium/Dextrose 1 gm in 50 mls @ 100 mls/hr 05/06/25 09:35 05/10/25 08:40 Rocephin/D5w 1gm Iv Premix IV 05/13/25 09:34 100 mls/hr QDAY CINDI Administration Dextrose 1,000 mls @ 80 mls/hr 05/08/25 10:45 05/10/25 01:36 D5w IV 06/07/25 10:44 80 mls/hr .[id number] CINDI Administration Insulin Human Lispro 0 unit 05/09/25 08:15 05/09/25 17:22 Insulin Lispro (Admelog) 1 Unit/0.01 Ml Unit SC 06/08/25 08:14 Not Given AC [facility] Protocol Nifedipine 60 mg 05/10/25 09:00 05/10/25 08:41 Nifedipine Xl 30 Mg Tabcr PO 06/09/25 08:59 60 mg QDAY CINDI Administration Patiromer 8.4 gm 05/10/25 09:00 Patiromer Calcium 8.4 Gm Packet PO 06/09/25 08:59 2 X WEEKLY CIDNI Sevelamer Carbonate 800 mg 05/06/25 08:00 05/10/25 08:42 Sevelamer Carbonate 800 Mg Tablet PO 06/05/25 07:59 800 mg TIDWM CINDI Administration Sodium Chloride 3 ml 05/06/25 16:51 Sodium Chloride Rt Apryl 0.9% 3 Ml Nebu INH 06/05/25 16:50 PRN PRN SOLN Vitamin B Complex/Vit C/Folic Acid 1 tab 05/06/25 09:00 05/10/25 08:42 Vit B12/Vit C/Fa (Nephrovite) Tablet PO 06/05/25 08:59 1 tab QDAY CINDI Administration Plan This is a 69-year-old male with HFpEF, A-fib on Eliquis, CAD, DVT, ischemic colitis, and insulin-dependent diabetes presented with hypoglycemia, hypothermia, and hyperkalemia admitted to the ICU for monitoring. [facility] JULIAN with the help of nephrology team. #Acute metabolic encephalopathy (resolving) #Concern for adrenal insufficiency #Hypothermia Per admission note, he presented with nausea and spacing out, likely in settings of uremia, hypoglycemia, hypothermia and bradycardia. There may be a infectious component given cellulitis, however currently he is aseptic with normal lactic acid since admission, UA is negative for UTI. Other underlying causes ruled out including acute blood loss, relatively normal blood gas, and normal thyroid function. No focal neurological deficits noted on exam, low suspicion for CVA and CT head was deferred. [facility] team had concerns for adrenal sufficiency, appropriately given above-mentioned electrolyte abnormality and bradycardia. He was given a trial of STEROIDS which are currently held. Symptoms appear to have resolved. Currently he feels slightly weak but otherwise alert and oriented x 4 and tolerating oral intake without current complaint. ? Monitoring and treating underlying cause ? Pending morning CORTISOL (sent out lab) #Severe hyperkalemia (stable) #Recurrent hyperkalemia #Hyperphosphatemia (stable) #Hx of hyperparathyrodism Admission potassium 7.[address] changes on EKG. Likely worsening renal function as he is on home SEVELAMER. He was given a round of cocktail with slight improvement of potassium to 6.8. ICU also given another round of hyperkalemia cocktail. Admission phosphorus 6.6, improved to 5.6 with SEVELAMER. He has previous findings of increased parathyroid nuclear scan isotope uptake as well as nodular parathyroid adenoma on ultrasound for which FNA was recommended but was not done. He also has previous findings of elevated PTH. Gave 1 dose KAYEXALATE x 1 for potassium 5.2. ? Daily CMP ? Continue SEVELAMER 800 mg TID ? 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 Vines outpatient. On presentation, renal function appears stage IV, likely dehydration vs. overall worsening renal function. He had anion gap of 11, bicarb 19 and pCO2 19 with chloride 117, suggestive of hyperchloremic metabolic acidosis. Urine gap was also elevated 5.7, possible type IV RTA. Will continue with medical management following nephrology recommendations. No plan for dialysis at this point, pending further recommendations. - Renally dose meds, avoid overdiuresis and NEPHROTOXINS - Daily CMP - Continue Bicitra 30 mg PO BID - Hold spiranolactone and potassium #Acute hypoglycemia (resolved) #IDDM On admission, GLUCOSE 30s requiring D10 drip and ICU admission. Presentation to have preceded home INSULIN injection. However there may be a component of poor eating as he reports intolerance to low-carb diet. Currently off D10, blood GLUCOSE within normal limits. A1c 5.4 from 10/2024. Unclear he needs INSULIN regimen going forward, and will need better glycemic control prior to discharge. ? Carb consistent diet ? Avoid hypoglycemia ? INSULIN sliding scale ? Accu-Cheks #Paroxysmal atrial fibrillation, rate controlled Chronic, currently in sinus rhythm, rate controlled. ? Continue home ELIQUIS 2.5 mg BID ? Continue home AMIODARONE 200 mg daily #Acute on chronic anemia Likely CKD, hemoglobin near baseline. No signs or symptoms of abnormal bleed. ? Continue to monitor ? Continue FERROUS SULFATE 325 mg daily #LLE cellulitis #History of DVT Presents with distal left lower extremity cellulitis which appears to be preceding with current ANTIBIOTICS. Remains aseptic. - Continue Ceftriaxone (05/06/25 ~ 05/13/25) - Continue doxycycline (05/09/25 ~ 05/16/25) - Continue home ELIQUIS #HTN #HLD #Bradycardia (resolved) He had a single, no recurrent episode of bradycardia at 57, EKG showed heart rate [address] changes. - Chronic medical problems - Continue monitoring - Held home AMLODIPINE 5 mg daily, increased Nifedipine to 60mg QD and hydralazine 10mg TID - Continue home ATORVASTATIN 10 mg HS #Cough Reports mild cough which appears to have improving. Less suspicion for pneumonia based on CXR. He received a dose of CEFTRIAXONE and DOXYCYCLINE. - Rpt CXR on 05/09/25 shows no significant change compare to prior CXR on 05/06/25 - Continue Ceftriaxone (05/06/25 ~ 05/13/25) - Start doxycycline (05/09/25 ~ 05/16/25) #HFpEF (stable) #CAD s/p CABG 2018 (stable) #Hx ischemic colitis, s/p PEG tube (stable) No signs of CHF exacerbation. - Chronic medical problem - Continue monitoring - Contiunue LASIX 20 mg daily for LE edema. Health maintenance Dispo: SNF placement. DVT prophylaxis: Eliquis GI prophylaxis: Not indicated Antibiotics: Ceftriaxone and Doxycycline Diet: CHO consistent Lines: Peripheral IV, Rowe Cath Code status: Full code Case discussed with my senior resident Dr. Krueger Case discussed with my attending Dr. Ana Smith DO PGY 1 Attending Provider Attestation/Addendum I have seen and examined the patient. I was physically present for the grier portions of the services provided including history, physical exam, diagnosis, treatment plans and orders. I agree with assessment and plan of care as documented by residents. Even though this this note was carefully revised there may still be minor errors in computer operations manager due to voice recognition software. Sotero Perez MD
[2025-05-10] MEDS: PATIROMER CALCIUM 8.4 GM PACKET PO (09:50)
[2025-05-10] MEDS: EPOETIN ALFA-EPBX INJ 10,000 UNIT/ML VIAL (NON-ESRD) 10000 UNIT SC (10:59)
--- NOTE | 2025-05-10 14:30 | PC.SS ---
Rounding Note: Plan is to continue diuresis of patient. Patient receiving IV antibiotics.
[2025-05-10] MEDS: CITRIC ACID/SODIUM CITR 15 ML UDC (BICITRA) 30 ML PO (21:35)
[2025-05-10] MEDS: ATORVASTATIN CALCIUM 10 MG TABLET PO (21:35)
[2025-05-11] VITALS (12 sets, daily range): BP systolic 153–182; BP diastolic 66–87; PULSE 63–109; RESP 15–21; TEMP 36.1–36.6; O2SAT 93–95
[2025-05-11 05:21] LABS: Basophils # (Auto) 0.0 Thou/mm3 (0.0-0.2); Basophils % (Auto) 1 % (0-2.5); Eosinophils # (Auto) 0.3 Thou/mm3 (0.0-0.5); Eosinophils % (Auto) 4 % (0-10); Hematocrit 30.2 % (41.0-53.0); Hemoglobin 9.9 g/dL (13.5-16.0); Immature Granulocytes Auto 0.10 Thou/mm3 (0.00-0.00); Lymphocytes # (Auto) 3.3 Thou/mm3 (1.0-4.8); Lymphocytes % (Auto) 43 % (10-50); Mean Corpuscular HGB Conc 32.8 g/dl (31.0-37.0); Mean Corpuscular Hemoglobin 31.3 pg (25.0-35.0); Mean Corpuscular Volume 96 fL (80-100); Monocytes # (Auto) 0.9 Thou/mm3 (0.0-0.8); Monocytes % (Auto) 11 % (0-12); Neutrophils # (Auto) 2.9 Thou/mm3 (1.8-7.7); Neutrophils % (Auto) 39 % (37-80); Nucleated Red Blood Cell # 0.00 Thou/mm3 (0.00-0.00); Nucleated Red Blood Cell % 0 /100 WBC (0); Platelet Count 85 Thou/mm3 (140-440); RDW Standard Deviation 52.2 fL (35.1-43.9); Red Blood Count 3.16 Miln/mm3 (4.50-5.90); White Blood Count 7.5 Thou/mm3 (3.8-10.6)
[2025-05-11 05:44] LABS: Alanine Aminotransferase 24 U/L (10-49); Albumin, Serum 3.7 gm/dL (3.4-4.8); Albumin/Globulin Ratio 1.4 (1.2-2.2); Alkaline Phosphatase 87 U/L (46-116); Anion Gap 11 (7-16); Aspartate Amino Transferase 18 U/L (0-34); BUN/Creatinine Ratio 21 Ratio (12-20); Bilirubin,Total 1.0 mg/dL (0.3-1.2); Blood Urea Nitrogen 64 mg/dL (9-23); Calcium 10.0 mg/dL (8.3-10.6); Calcium (Corrected) 10.2 mg/dL (8.5-10.1); Carbon Dioxide 22.8 mMol/L (20.0-31.0); Chloride 109 mMol/L (98-107); Creatinine (Component) 3.0 mg/dL (0.6-1.3); Estimated Creatinine Clearance 35.9 mL/min (>60); Globulin 2.6 gm/dL (2.3-3.5); Glucose 95 mg/dL (74-106); Magnesium 1.7 mg/dL (1.6-2.6); Osmolality,Calculated 303 (275-295); Phosphorous 5.7 mg/dL (2.4-5.1); Potassium 4.9 mMol/L (3.4-5.1); Sodium 143 mMol/L (136-145); Total Protein 6.3 gm/dL (5.7-8.2); eGFR 22 See Note
--- NOTE | 2025-05-11 08:59 | PC.SS ---
Rounding Note: Plan is to continue diuresis of patient. Patient receiving IV antibiotics.
--- NOTE | 2025-05-11 09:14 | PD.RESPRO ---
Documentation for date of: 05/11/25 Subjective Subjective Interval history: Interval history: Mr. Amezcua is a 69-year-old male with history of Heart failure preserved ejection fraction, A-fib, CAD status post CABG in 2018, DVT left lower extremity, ischemic colitis status post colostomy at [facility], insulin-dependent diabetes on 50 units presented to the ED around 1 PM with hypoglycemia and hypothermia. Per patient's and patient, patient was following his normal routine of waking up at 10 AM and went to the restroom. After sitting on his commode, patient was unable to get off the commode. At 10:10 AM patient's found him looking spacey and lethargic. She also noticed that he was ice cold to touch. She took a blood sugar which was 89 and after a glass of juice repeat blood glucose was 5910 minutes later. She decided to call the ambulance at 11 AM to bring him to the hospital. Patient states that he only felt wobbly, mild cough and weak the day prior however denies any other symptoms of nausea, vomiting, headache, body aches, fevers, chills, or recent travel. ED course: Significant vitals on arrival: Blood pressure 162/70, heart rate of 38, temperature of 88 ?F; significant labs for low glucose of 40, elevated BUN at 65, bicarb 19.3, creatinine 2.9, elevated LFTs Imaging: Chest x-ray showed early pneumonia left base, EKG showed bradycardia rate of [address] segment changes In the ED: Terry fernandez, Patient received dextrose, albuterol 15 mg, calcium chloride 10 mg, 50 mill EQ of sodium bicarb, 8 units of insulin, 2 g ceftriaxone, sodium polystyrene sulfonate 15 GM p.o. x 1 Patient was initially admitted to telemetry for further management of patient's hypothermia and hypoglycemia however despite being on D10 at 50 mL/hr dropped from 1 25-78 despite eating 2 puddings. At this time, patient will be upgraded to ICU for further close monitoring for patient's hypothermia and hypoglycemia. Nephrology consulted for hyperkalemia in setting of JULIAN, as well as NAGMA. 05/06/25: Patient seen and assessed at bedside. No complaints. AOx3 on exam. Potassium 7.3 this AM, worsened since admission despite hyperkalemia cocktail. Slowly improving with additional Kayexalate and paritomer. Chloride elevated at 116, BUN 54, Cr 3.2 (baseline 2.3-2.6 in 2023). Anion gap 10. Will continue pharmacological management for hyperkalemia, however if fails to improve, patient will likely need dialysis tomorrow. 05/07/25: Patient was seen and assessed at bedside on telemetry. Feeling better and more conversational. Potassium improved to 4.7 s/p additional Kayexelate and parotimer. BUN 75, Cr stable at 3.4. GFR 19. Phosphorus 6.0, continue sevelemer 800 mg TID. Bicarb improved s/p bicarb amp. 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 Follow up PTH. Per chart review, patient was previously on cinacalcet 60 mg for hyperparathyroidism but patient does not recall if he has been taking it. Will likely need to restart. Follow up AM cortisol tomorrow. No need for dialysis at this time as GFR is still above 15 but will continue to monitor renal panel closely. 05/08/2025 patient currently seen in telemetry. Resting comfortably. Potassium tad elevated at 5.2. Changed him to renal diet. Labs and medications have been reviewed. Sodium 145, potassium 5.2, chloride 113, bicarbonate 22.6, BUN 70, creatinine 3.3, GFR 19, phosphorus 5.8, calcium 9.4, LFTs normal 05/09/25: Patient seen and assessed in telemetry. Potassium improved to 5.0 (from 5.2). Pending AM cortisol, however low suspicion for adrenal insufficiency given elevated BP this AM. Sodium 145, potassium 5.0, chloride 110, BUN 68, creatinine 3.1, GFR 21, phosphorus 5.2, calcium 9.5. No need to restart cinacalcet as PTH only mildly elevated at 119. Patient is medically stable for discharge from nephrology standpoint, recommend discharge with veltessa 8g daily and bicitra. Will follow up in clinic in 1 week after discharge with renal panel, will follow up AM cortisol level at that time. 05/10/25: Patient seen and assessed in telemetry. UOP 3.7L. Temp 94.3 overnight, 95.1F rectal. Improved on Terry hugger. Started hydralazine 10 TID and increased nifedipine to 60 daily, systolics improved to 130s. Potassium 4.9, BUN 66, creatinine 2.8, GFR 23, phosphorus 5.2, magnesium 1.4, repleted. No need for dialysis. Pending AM cortisol. 05/11/25: Patient seen and assessed in telemetry. UOP 2.9 L overnight. No episodes of hypothermia. BUN 64, creatinine 3.0 (from 2.8), GFR 22 overall relatively stable. Magnesium 1.7, repleted. Calcium 10.2, hold Lasix for today. Phosphorus 5.7, increase sevelamer 800 mg TID to 2 tablets with meals. Patient is still stable for discharge from nephrology standpoint, discharged on oral Lasix 20 mg daily. Instructed patient to follow-up in clinic 1 week after discharge with renal panel. Exam Vital Signs Temp Pulse Resp BP Pulse Ox O2 Del Method 97.0 F 75 17 158/77 H 94 L Room Air 05/11/25 04:00 05/11/25 05:03 05/11/25 04:00 05/11/25 05:03 05/11/25 04:00 05/11/25 04:00 Narrative Exam Physical Exam General: Awake and in no acute distress. Conversational and non-toxic appearing. HEENT: Normocephalic, atraumatic, mucous membranes moist. Heart: Regular rate and rhythm, normal S1 and S2, no murmurs appreciated. Lungs: Mild bibasilar crackles. Abdomen: Soft, nondistended, nontender, positive bowel sounds. Colostomy bag in place. No guarding or rebound tenderness. Neurologic: Alert and oriented x3, no gross neurological deficit, and patient able to move all 4 extremities. Extremities: 1+ pitting edema in lower extremities. Amputated right big and second toes. Skin: Erythematous, warm patch on left brady, improving. No ecchymoses. Objective Labs 05/12/25 04:20 05/12/25 04:20 Labs: Laboratory Results - last 24 hr 05/11/25 04:25 WBC 7.5 RBC 3.16 L Hgb 9.9 L Hct 30.2 L MCV 96 MCH 31.3 MCHC 32.8 RDW Std Deviation 52.2 H Plt Count 85 L Neut % (Auto) 39 Lymph % (Auto) 43 [place] % (Auto) 11 Eos % (Auto) 4 Baso % (Auto) 1 Neut # (Auto) 2.9 Lymph # (Auto) 3.3 [place] # (Auto) 0.9 H Eos # (Auto) 0.3 Baso # (Auto) 0.0 Immature Gran # (Auto) 0.10 H Absolute Nucleated RBC 0.00 Immature Gran % 1 H Nucleated RBC % 0 Sodium 143 Potassium 4.9 Chloride 109 H Carbon Dioxide 22.8 Anion Gap 11 BUN 64 H Creatinine 3.0 H Estim Creat Clear Calc 35.9 L eGFR 22 L BUN/Creatinine Ratio 21 H Glucose 95 Calculated Osmolality 303 H Calcium 10.0 Corrected Calcium 10.2 H Phosphorus 5.7 H Magnesium 1.7 Total Bilirubin 1.0 AST 18 ALT 24 Alkaline Phosphatase 87 Total Protein 6.3 Albumin 3.7 Globulin 2.6 Albumin/Globulin Ratio 1.4 ABG Interpretation ABG results: 05/05/25 20:37 VBG pH 7.35 VBG pCO2 35 L VBG pO2 112 H VBG Base Excess -6 L Quality Measures Quality Measures VTE prophylaxis Advance care planning discussed with:: patient Assessment & Plan Assessment Current Active Medications: Generic Name Dose Route Start Last Admin Trade Name Freq PRN Reason Stop Dose Admin Acetaminophen 650 mg 05/05/25 19:24 Acetaminophen 325 Mg Tablet PO 06/04/25 19:23 Q6H PRN Fever >101.5 Amiodarone HCl 200 mg 05/06/25 09:00 05/10/25 08:42 Amiodarone Hcl 200 Mg Tablet PO 06/05/25 08:59 200 mg DAILY CINDI Administration Apixaban 2.5 mg 05/07/25 09:00 05/10/25 21:35 Apixaban 2.5 Mg Tablet PO 06/06/25 08:59 2.5 mg BID CINDI Administration Atorvastatin Calcium 10 mg 05/06/25 21:00 05/10/25 21:35 Atorvastatin Calcium 10 Mg Tablet PO 06/05/25 20:59 10 mg HS CINDI Administration Balsam [place] Oil 0 gm 05/06/25 10:00 05/10/25 21:36 Balsam Mad[place] Oil (Venelex) 60 Gm Tube TOP 06/05/25 09:59 1 applicatio BID CINDI Administration Calcitriol 0.5 mcg 05/06/25 09:00 05/10/25 08:43 Calcitriol 0.25 Mcg Capsule PO 06/05/25 08:59 0.5 mcg QDAY CINDI Administration Citric Acid/Sodium Citrate 30 ml 05/10/25 21:00 05/10/25 21:35 Citric Acid/Sodium Citr 15 Ml Udc (Bicitra) PO 06/09/25 20:59 30 ml BID CINDI Administration Clotrimazole 0 gm 05/06/25 10:00 05/10/25 21:36 Clotrimazole Cr 1% 30 Gm Tube TOP 06/05/25 09:59 1 appl BID CINDI Administration Dextrose 25 ml 05/06/25 16:08 Dextrose 50%-Water Inj 50 Ml Syringe IV 06/05/25 16:07 Q15MIN PRN BG 50-70 responsive npo pt Dextrose 50 ml 05/06/25 16:08 Dextrose 50%-Water Inj 50 Ml Syringe IV 06/05/25 16:07 Q15MIN PRN BG <50 OR BG <70 & pt unresponsive Doxycycline Hyclate 100 mg 05/09/25 21:00 05/10/25 21:35 Doxycycline 100 Mg Tablet PO 05/16/25 20:59 100 mg BID CINDI Administration Ferrous Sulfate 325 mg 05/06/25 09:00 05/10/25 08:42 Ferrous Sulf 325 Mg Tablet PO 06/05/25 08:59 325 mg QDAY CINDI Administration Furosemide 20 mg 05/08/25 15:15 05/10/25 08:40 Furosemide Inj 10 Mg/Ml Vial 2 Ml IVP 06/07/25 15:14 20 mg QDAY CINDI Administration Glucagon 1 mg 05/06/25 16:08 Glucagon Inj 1 Mg Vial IM Q15MIN PRN BG <70, and no IV access Hydralazine HCl 10 mg 05/09/25 22:00 05/11/25 05:03 Hydralazine Hcl 10 Mg Tablet PO 06/08/25 21:59 10 mg TID CINDI Administration Ceftriaxone Sodium/Dextrose 1 gm in 50 mls @ 100 mls/hr 05/06/25 09:35 05/10/25 08:40 Rocephin/D5w 1gm Iv Premix IV 05/13/25 09:34 100 mls/hr QDAY CINDI Administration Magnesium Sulfate 4 gm in 50 mls @ 12.5 mls/hr 05/11/25 07:39 Magnesium Sulfate Ivpb IV 05/11/25 11:38 X1 ONE Insulin Human Lispro 0 unit 05/09/25 08:15 05/11/25 07:24 Insulin Lispro (Admelog) 1 Unit/0.01 Ml Unit SC 06/08/25 08:14 Not Given AC [facility] Protocol Nifedipine 60 mg 05/11/25 09:00 Nifedipine Xl 30 Mg Tabcr PO 06/10/25 08:59 BID CINDI Patiromer 8.4 gm 05/10/25 09:00 05/10/25 09:50 Patiromer Calcium 8.4 Gm Packet PO 06/09/25 08:59 8.4 gm 2 X WEEKLY CINDI Administration Sevelamer Carbonate 800 mg 05/10/25 11:29 05/10/25 18:24 Sevelamer Carbonate 800 Mg Tablet PO 06/05/25 07:59 800 mg TIDWM CINDI Administration Sodium Chloride 3 ml 05/06/25 16:51 Sodium Chloride Rt Apryl 0.9% 3 Ml Nebu INH 06/05/25 16:50 PRN PRN SOLN Vitamin B Complex/Vit C/Folic Acid 1 tab 05/06/25 09:00 05/10/25 08:42 Vit B12/Vit C/Fa (Nephrovite) Tablet PO 06/05/25 08:59 1 tab QDAY CINDI Administration Plan Patient is a 69-year-old male with history of HFpEF, A-fib, CAD status post CABG in 2018, DVT left lower extremity, ischemic colitis status post colostomy at [facility], insulin-dependent diabetes on 50 units presented to the ED around 1 PM with hypoglycemia and hypothermia, admitted to telemetry for further management. Was upgraded to ICU for further close monitoring for patient's hypothermia and hypoglycemia but downgraded back to telemetry due to resolution of hypothermia. Nephrology consulted for JULIAN, hyperkalemia, and acidosis. 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 - Creatinine stabilized. - EKG shows sinus rhythm with first degree AV block, no peak T waves observed - Not quite sure on his hypothermia although his temperature seems to be better now. - Question adrenal insufficiency although should have hyponatremia. Lower suspicion now that patient is hypertensive. 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 - Per chart review, levels were also intermittently elevated in the past but baseline appears to be within normal range. - Likely iso worsening JULIAN on CKD Plan: - Increase Sevelemer 800 mg TID to 2 tablets with meals #Hx hyperparathyroidism #Hypercalcemia, mild - PTH elevated 140s-200s since 2018 - Calcium 9.6, within normal limits but previously low in November 2023 (7.7-8.1) - Parathyroid nuclear scan 02/17/2023 showed subtle increased isotope accumulation over right thyroid region - Soft tissue US 02/19/23 showed two vascular right thyroid nodules (upper 18 x 16 mm, lower 3.5 x 3.6 mm) but no parathyroid adenoma. FNA recommended at the time, unclear if this was completed. - Was on cinacalcet 60 mg but does not recall if he is still taking it - PTH 119 - Suspect secondary iso CKD Plan: - No need to restart cinacalcet - Follow up outpatient with renal panel in 1 week #Hypothermia #History of Heart failure with preserved ejection fraction (HFpEF) #CAD s/p CABG 2018 #A-fib #DVT #Bradycardia- resolved #HLD #S/p colostomy from ischemic colitis-stable #Severe recurrent hypoglycemia, better #Cellulitis #History of DVT #Generalized weakness - Defer to primary team for management Thank you for your consultation, please do not hesitate to reach out if you have any question or concern Patient plan of care was discussed with the attending physician, Dr. Vines. Tatyana Stein DO, PGY-1 Attending Provider Attestation/Addendum Patient seen and examined with resident physician Dr. Stein. Note reviewed, agree with findings and recommendations.
--- NOTE | 2025-05-11 09:21 | PC.SS ---
SNF referrals submitted on [facility]. Responses pending. [place] preferred SNF.
--- NOTE | 2025-05-11 09:30 | PC.SS ---
PASSR completed. Patient meets Level I criteria.
[2025-05-11] MEDS: FUROSEMIDE INJ 10 MG/ML VIAL 2 ML 20 MG IVP (09:58)
[2025-05-11] MEDS: SEVELAMER CARBONATE 800 MG TABLET PO (09:59)
[2025-05-11] MEDS: APIXABAN 2.5 MG TABLET PO ×2 (09:59→21:58)
[2025-05-11] MEDS: DOXYCYCLINE 100 MG TABLET PO ×2 (09:59→21:58)
[2025-05-11] MEDS: AMIODARONE HCL 200 MG TABLET PO (09:59)
[2025-05-11] MEDS: Magnesium Sulfate 4 GM Ivpb 4 GM/50 ML BAG IV (10:00)
[2025-05-11] MEDS: NIFEdipine XL 30 MG TABCR 60 MG PO ×2 (10:00→21:58)
[2025-05-11] MEDS: FERROUS SULF 325 MG TABLET PO (10:00)
[2025-05-11] MEDS: CITRIC ACID/SODIUM CITR 15 ML UDC (BICITRA) 30 ML PO ×2 (10:00→22:03)
[2025-05-11] MEDS: VIT B12/Vit C/FA (Nephrovite) TABLET 1 TAB PO (10:00)
[2025-05-11] MEDS: cefTRIAXone/D5w 1gm IV premix 1 GM/50 ML BAG IV (10:01)
[2025-05-11] MEDS: BALSAM PERU/CASTOR OIL (Venelex) 60 GM TUBE TOP ×2 (10:01→22:02)
[2025-05-11] MEDS: CLOTRIMAZOLE CR 1% 30 GM TUBE TOP ×2 (10:02→22:01)
--- NOTE | 2025-05-11 10:18 | XR_ITS ---
EXAMINATION: Renal sonography complete TECHNIQUE: Grayscale sonographic images kidneys with Doppler spectral analysis including assessment peak systolic velocities, calculation of resistive indices and renal aorta ratios Date and time: May 11, 2025, 1247 hours INDICATIONS: History acute renal insufficiency, hypertension, small kidneys with bilateral renal cortical thinning on renal sonogram November 07, 2023 FINDINGS: Right kidney 10.1 cm renal cortex 1.8 cm Left kidney 10.9 cm cortex 1.7 cm No elevation peak systolic velocities No significant elevation resistive indices Normal renal aorta ratio Overall study is limited by the patient's size IMPRESSION: No Doppler sonographic findings of renal artery stenosis
--- NOTE | 2025-05-11 10:25 | PD.RESPRO ---
Documentation for date of: 05/11/25 Exam Vital Signs Temp Pulse Resp BP Pulse Ox O2 Del Method 97.5 F 103 H 17 157/77 H 93 L Room Air 05/11/25 08:00 05/11/25 10:00 05/11/25 08:00 05/11/25 10:00 05/11/25 08:00 05/11/25 08:00 Objective Labs 05/11/25 04:25 05/11/25 04:25 Labs: Laboratory Results - last 24 hr 05/11/25 04:25 WBC 7.5 RBC 3.16 L Hgb 9.9 L Hct 30.2 L MCV 96 MCH 31.3 MCHC 32.8 RDW Std Deviation 52.2 H Plt Count 85 L Neut % (Auto) 39 Lymph % (Auto) 43 [place] % (Auto) 11 Eos % (Auto) 4 Baso % (Auto) 1 Neut # (Auto) 2.9 Lymph # (Auto) 3.3 [place] # (Auto) 0.9 H Eos # (Auto) 0.3 Baso # (Auto) 0.0 Immature Gran # (Auto) 0.10 H Absolute Nucleated RBC 0.00 Immature Gran % 1 H Nucleated RBC % 0 Sodium 143 Potassium 4.9 Chloride 109 H Carbon Dioxide 22.8 Anion Gap 11 BUN 64 H Creatinine 3.0 H Estim Creat Clear Calc 35.9 L eGFR 22 L BUN/Creatinine Ratio 21 H Glucose 95 Calculated Osmolality 303 H Calcium 10.0 Corrected Calcium 10.2 H Phosphorus 5.7 H Magnesium 1.7 Total Bilirubin 1.0 AST 18 ALT 24 Alkaline Phosphatase 87 Total Protein 6.3 Albumin 3.7 Globulin 2.6 Albumin/Globulin Ratio 1.4 ABG Interpretation ABG results: 05/05/25 20:37 VBG pH 7.35 VBG pCO2 35 L VBG pO2 112 H VBG Base Excess -6 L Quality Measures Quality Measures VTE prophylaxis Assessment & Plan Assessment Current Active Medications: Generic Name Dose Route Start Last Admin Trade Name Freq PRN Reason Stop Dose Admin Acetaminophen 650 mg 05/05/25 19:24 Acetaminophen 325 Mg Tablet PO 06/04/25 19:23 Q6H PRN Fever >101.5 Amiodarone HCl 200 mg 05/06/25 09:00 05/11/25 09:59 Amiodarone Hcl 200 Mg Tablet PO 06/05/25 08:59 200 mg DAILY CINDI Administration Apixaban 2.5 mg 05/07/25 09:00 05/11/25 09:59 Apixaban 2.5 Mg Tablet PO 06/06/25 08:59 2.5 mg BID CINDI Administration Atorvastatin Calcium 10 mg 05/06/25 21:00 05/10/25 21:35 Atorvastatin Calcium 10 Mg Tablet PO 06/05/25 20:59 10 mg HS CINDI Administration Balsam [place] Oil 0 gm 05/06/25 10:00 05/11/25 10:01 Balsam Mad[place]uri/[place] Oil (Venelex) 60 Gm Tube TOP 06/05/25 09:59 1 applicatio BID CINDI Administration Calcitriol 0.5 mcg 05/06/25 09:00 05/11/25 09:59 Calcitriol 0.25 Mcg Capsule PO 06/05/25 08:59 0.5 mcg QDAY CINDI Administration Citric Acid/Sodium Citrate 30 ml 05/10/25 21:00 05/11/25 10:00 Citric Acid/Sodium Citr 15 Ml Udc (Bicitra) PO 06/09/25 20:59 30 ml BID CINDI Administration Clotrimazole 0 gm 05/06/25 10:00 05/11/25 10:02 Clotrimazole Cr 1% 30 Gm Tube TOP 06/05/25 09:59 1 appl BID CINDI Administration Dextrose 25 ml 05/06/25 16:08 Dextrose 50%-Water Inj 50 Ml Syringe IV 06/05/25 16:07 Q15MIN PRN BG 50-70 responsive npo pt Dextrose 50 ml 05/06/25 16:08 Dextrose 50%-Water Inj 50 Ml Syringe IV 06/05/25 16:07 Q15MIN PRN BG <50 OR BG <70 & pt unresponsive Doxycycline Hyclate 100 mg 05/09/25 21:00 05/11/25 09:59 Doxycycline 100 Mg Tablet PO 05/16/25 20:59 100 mg BID CINDI Administration Ferrous Sulfate 325 mg 05/06/25 09:00 05/11/25 10:00 Ferrous Sulf 325 Mg Tablet PO 06/05/25 08:59 325 mg QDAY CINDI Administration Furosemide 20 mg 05/08/25 15:15 05/11/25 09:58 Furosemide Inj 10 Mg/Ml Vial 2 Ml IVP 06/07/25 15:14 20 mg QDAY CINDI Administration Glucagon 1 mg 05/06/25 16:08 Glucagon Inj 1 Mg Vial IM Q15MIN PRN BG <70, and no IV access Hydralazine HCl 10 mg 05/09/25 22:00 05/11/25 05:03 Hydralazine Hcl 10 Mg Tablet PO 06/08/25 21:59 10 mg TID CINDI Administration Ceftriaxone Sodium/Dextrose 1 gm in 50 mls @ 100 mls/hr 05/06/25 09:35 05/11/25 10:01 Rocephin/D5w 1gm Iv Premix IV 05/13/25 09:34 100 mls/hr QDAY CINDI Administration Magnesium Sulfate 4 gm in 50 mls @ 12.5 mls/hr 05/11/25 07:39 05/11/25 10:00 Magnesium Sulfate Ivpb IV 05/11/25 11:38 12.5 mls/hr X1 ONE Administration Insulin Human Lispro 0 unit 05/09/25 08:15 05/11/25 07:24 Insulin Lispro (Admelog) 1 Unit/0.01 Ml Unit SC 06/08/25 08:14 Not Given AC [facility] Protocol Nifedipine 60 mg 05/11/25 09:00 05/11/25 10:00 Nifedipine Xl 30 Mg Tabcr PO 06/10/25 08:59 60 mg BID CINDI Administration Patiromer 8.4 gm 05/10/25 09:00 05/10/25 09:50 Patiromer Calcium 8.4 Gm Packet PO 06/09/25 08:59 8.4 gm 2 X WEEKLY CINDI Administration Sevelamer Carbonate 800 mg 05/10/25 11:29 05/11/25 09:59 Sevelamer Carbonate 800 Mg Tablet PO 06/05/25 07:59 800 mg TIDWM CINDI Administration Sodium Chloride 3 ml 05/06/25 16:51 Sodium Chloride Rt Apryl 0.9% 3 Ml Nebu INH 06/05/25 16:50 PRN PRN SOLN Vitamin B Complex/Vit C/Folic Acid 1 tab 05/06/25 09:00 05/11/25 10:00 Vit B12/Vit C/Fa (Nephrovite) Tablet PO 06/05/25 08:59 1 tab QDAY CINDI Administration
[2025-05-11] MEDS: SEVELAMER CARBONATE 800 MG TABLET 1600 MG PO (12:01)
--- NOTE | 2025-05-11 12:01 | ESDS_ITS ---
<Statement entered by Sreekanth Blair MD - 05/11/25 12:53> Patient was examined and case was reviewed with team including attending physician. Note reviewed, I agree with most of its contents and agree with the patient's care as documented by Dr. Luis Blair MD PGY-2 Planned Discharge Date 05/11/25 DS: Providers Provider Date of admission: 05/05/25 20:23 Primary care physician: Sandra Vines MD Admitting Provider: Geovanna Fishman MD Attending Provider on Admission: Jeniffer Ta MD Consults: 05/06/25 06:53 Referral Wound Care Urgent Comment: 05/06/25 09:53 Referral Nutritional Services Routine Comment: Wounds 05/06/25 12:34 Consult to Nephrology Routine Comment: Consulting Provider: Sandra Vines 05/06/25 16:08 Referral Registered Dietitian Routine Comment: Hypoglycemia 05/07/25 10:33 Referral Physical Therapy Stat Comment: Physician Instructions: 05/07/25 11:10 Referral Discharge Planning Routine Comment: HHC vs rehab Attending Provider on DC: Sotero Perez MD Discharging Provider: Christiano Smith DO Anticipated date of discharge: 05/11/25 DS: Diagnosis Problem List Completed Was Problem List Reviewed/Reconciled?: Yes Hospital Course Hospital Course Hospital course: Mr. Amezcua is a 69-year-old male with history of Heart failure preserved ejection fraction, A-fib, CAD status post CABG in 2018, DVT left lower extremity, ischemic colitis status post colostomy at [facility], insulin-dependent diabetes on 50 units presented initially to the ED around 1 PM on 05/05/25 with hypoglycemia and hypothermia. Patient appeared lethargic and was ice cold to touch per patient's prior to arrival. Patient was found to have a temperature of 88 ?F in the ED. Initial lab significant for Glucose of 40, potassium 6.8, chloride 117, bicarb 19.3, BUN 65, creatinine 2.9, osmolality 306, AST 51, ALT 53. Terry hugger was applied, and patient received dextrose, albuterol 15 mg, calcium chloride 10 mg, 50 mill EQ of sodium bicarb, 8 units of insulin, 2 g ceftriaxone, sodium polystyrene sulfonate 15 GM p.o. Patient was upgraded to ICU for close monitoring for patient's hypothermia and hypoglycemia. Over the course of the first few days of hospital stay, patient's potassium slowly improved with additional Kayexalate and paritomer. Nephrology was cons ulted for hyperkalemia and high urine anion gap, possibly RTA type 4 given hyperkalemia. There was no plan to initiate dialysis as GFR was still above 15. A cortisol level was drawn due to concern of adrenal sufficieny, however, unlikely given normal blood pressure and sodium level. Of note, patient had previous findings of increased parathyroid nuclear scan isotope uptake as well as nodular parathyroid adenoma on ultrasound for which FNA was recommended but was not done. It was recommended to patient to follow up outpatient with renal panel in 1 week for further management. On day of discharge, patient was normothermic overnight without Terry hugger, and is medically stable for discharge from nephrology standpoint. It was recommended patient to be discharged with veltessa 8g daily, bicitra, and oral Lasix 20mg daily. Patient was advised to follow up in clinic in 1 week after discharge with renal panel. At this time, patient is medically and physically stable for discharge to SNF. All questions and concerns addressed, plan of care discussed with patient, return precautions given. 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 Please return to the ED immediately or call 911 for: severe headache, confusion, repeated vomiting, seizures, unusual sleepiness, vision problems, or weakness.? New Medications: You've been prescribed MUPIROCIN nasal oinment for MRSA decolonization. Apply MUPIROCIN topically twice daily in each nostril for 5 days. You have been prescribed 6 more days of doxycyclin please take this medication twice a day for 6 more days Stop taking AMLODIPINE You have been started on Nifedipine 60mg twice a day, and HYDRALYZINE 10 mg three time a day, please take as prescribed for BP contol. Your Sevelamer was adjusted to 2 tablets with meals Continue taking BICITRA 30 mL twice daily. Continue to take the rest of your medications as prescribed by your primary care physician. Patient has been explained that should any symptoms recur or worsen patient is instructed to return to the Emergency Department. Case discussed with my senior resident Dr. Krueger Case discussed with my attending Dr. Ana Smith, PGY 1 Time spent discussing smoking cessation with patient: more than 10 minutes Time Spent with Patient Time attestation: Total time spent providing and/or coordinating discharge services: 35 minutes Time spent: Greater than 30 minutes Exam Vital Signs Temp Pulse Resp BP Pulse Ox O2 Del Method 97.5 F 103 H 17 157/77 H 93 L Room Air 05/11/25 08:00 05/11/25 10:00 05/11/25 08:00 05/11/25 10:00 05/11/25 08:00 05/11/25 08:00 Narrative Exam General: Awake and in no acute distress. Conversational. A/O x 3. HEENT: Normocephalic, atraumatic. Heart: Regular rate and rhythm Lungs: Clear to auscultation with no wheezing or crackles. Abdomen: Soft, nondistended, nontender. Colostomy bag in place. No guarding or rebound tenderness. Neurologic: Alert and oriented x3, no gross neurological deficit, and patient able to move all 4 extremities. Extremities: 1+ pitting edema in lower extremities. Amputated right big and second toes. Skin: Erythematous, non-painful, non-tender, patch on left brady. No ecchymoses. Discharge Plan Plan Patient Disposition: HOME (Self Care) Care Plan Goals: Instructions have been explained to the patient with regards to their medications and how to take them. Patient was able to explain back to physician and nursing staff how to take their medications. Patient expressed understanding with instructions. New Medications: You've been prescribed MUPIROCIN nasal oinment for MRSA decolonization. Apply MUPIROCIN topically twice daily in each nostril for 5 days. You have been prescribed 6 more days of doxycyclin please take this medication twice a day for 6 more days Stop taking AMLODIPINE You have been started on Nifedipine 60mg twice a day, and HYDRALYZINE 10 mg three time a day, please take as prescribed for BP contol. Your Sevelamer was adjusted to 2 tablets with meals Continue taking BICITRA 30 mL twice daily. Continue to take the rest of your medications as prescribed by your primary care physician. Patient has been explained that should any symptoms recur or worsen patient is instructed to return to the Emergency Department. Prescriptions/Referrals Prescriptions/Med Rec: New mupirocin [Centany] 2 % ointment 1 applic topical BID Qty: 15 0RF Veltassa 8.4 gram powder in packet 8.4 g PO QDAY Qty: 30 0RF doxycycline hyclate 100 mg capsule 100 mg PO BID 6 Days Qty: 12 0RF nifedipine 60 mg tablet extended release 60 mg PO BID Qty: 60 0RF hydralazine 10 mg tablet 10 mg PO TID Qty: 90 0RF sodium citrate-citric acid 500-334 mg/5 mL solution 30 ml PO BID Qty: 3000 0RF Continued fexofenadine [Tonia Allergy] 180 MG tablet 180 mg PO QPM Qty: 0 Tradjenta 5 MG tablet 5 mg PO QPM Qty: 0 coenzyme Q10 [CoQ-10] 100 mg Capsule 100 mg PO QPM febuxostat [Uloric] 40 mg Tablet 40 mg PO QPM Xultophy 100/3.6 100 unit-3.6 mg /mL (3 mL) Insulin Pen 50 unit SUBCUT QDAY hydroxyzine HCl 25 mg Tablet 25 mg PO BID Qty: 1 0RF amiodarone 200 mg tablet 200 mg PO DAILY Patient Comments: TAKE 1 TABLET BY MOUTH EVERY DAY ferrous sulfate 325 mg (65 mg iron) tablet 325 mg PO DAILY Patient Comments: TAKE 1 TABLET BY MOUTH EVERY DAY cyclobenzaprine 5 mg Tablet 5 mg PO QPM Eliquis 2.5 mg Tablet 5 mg PO BID Qty: 60 0RF sacubitril-valsartan [Entresto] 24-26 mg Tablet 1 tab PO BID Qty: 60 0RF Nephro-Yola 0.8 mg Tablet 1 tab PO QDAY Qty: 30 0RF rosuvastatin 5 mg Tablet 5 mg PO QPM Qty: 30 0RF allopurinol 100 mg tablet 100 mg PO QDAY Patient Comments: TAKE 1 TABLET BY MOUTH EVERY DAY FOR GOUT furosemide 20 mg tablet 20 mg PO QDAY Patient Comments: TAKE 1 TABLET BY MOUTH EVERY DAY nebivolol 10 mg tablet 10 mg PO QDAY Patient Comments: TAKE 1 TABLET BY MOUTH EVERY DAY cinacalcet 60 mg tablet 60 mg PO QDAY Patient Comments: TAKE 1 TABLET BY MOUTH EVERY DAY NOT ON DIALYSIS Rx Instructions: NOT ON DIALYSIS calcitriol 0.25 mcg Capsule 0.25 mcg PO BID cyclobenzaprine 5 mg tablet 10 mg PO HS Changed sevelamer carbonate 800 mg Tablet 1,600 mg PO TIDWM Qty: 1 0RF Discontinued amlodipine 5 mg tablet 5 mg PO QDAY Qty: 30 0RF amoxicillin-pot clavulanate 500-125 mg tablet 1 tab PO BID Patient Comments: TAKE 1 TABLET ORALLY TWICE DAILY FOR 7 DAYS. Referrals: Sandra Vines MD [Primary Care Provider, Nephrology] Patient/Caregiver Discharge Instructions Print Language: Nauruan Stand Alone Forms: [employer]ie Award Info., Patient Portal Info Letter Discharge Order Discharge Orders: Discharge (Routine); Ordered 05/11/25 Ordered By: Angela Villagomez Quality Discharge Quality Measures none MD Attestestation MD Attestation I have seen and examined the patient. I was physically present for the grier portions of the services provided including history, physical exam, diagnosis, treatment plans and orders. I agree with assessment and plan of care as documented by residents. Even though this this note was carefully revised there may still be minor errors in leisure travel agent due to voice recognition software. Sotero Perez MD
--- NOTE | 2025-05-11 14:27 | PC.SS ---
SMOKE TESTER confirmed with bedside nurse that patient's salazar catheter has been removed, pending patient voiding; prior to discharging to SNF.
--- NOTE | 2025-05-11 15:51 | PC.SS ---
PASSR submitted on File Exchange to [email or web address].
--- NOTE | 2025-05-11 17:07 | PC.NURSE ---
MD Smith notified: Rowe catheter removed at 1208, first void at 1700. SSW Vinay has already clocked out for the day, discharge to SNF pending for tomorrow.
[2025-05-11] MEDS: ATORVASTATIN CALCIUM 10 MG TABLET PO (21:58)
[2025-05-12] VITALS (14 sets, daily range): BP systolic 119–180; BP diastolic 57–79; PULSE 64–76; RESP 17–20; TEMP 36.1–36.3; O2SAT 94–99
[2025-05-12] MEDS: ALBUTEROL/IPRATROPIUM (Duoneb) RT SOL 3 ML NEBU INH (04:42)
[2025-05-12 05:28] LABS: Basophils # (Auto) 0.1 Thou/mm3 (0.0-0.2); Basophils % (Auto) 1 % (0-2.5); Eosinophils # (Auto) 0.4 Thou/mm3 (0.0-0.5); Eosinophils % (Auto) 6 % (0-10); Hematocrit 32.1 % (41.0-53.0); Hemoglobin 10.2 g/dL (13.5-16.0); Immature Granulocytes Auto 0.13 Thou/mm3 (0.00-0.00); Lymphocytes # (Auto) 3.0 Thou/mm3 (1.0-4.8); Lymphocytes % (Auto) 40 % (10-50); Mean Corpuscular HGB Conc 31.8 g/dl (31.0-37.0); Mean Corpuscular Hemoglobin 30.4 pg (25.0-35.0); Mean Corpuscular Volume 96 fL (80-100); Monocytes # (Auto) 0.9 Thou/mm3 (0.0-0.8); Monocytes % (Auto) 12 % (0-12); Neutrophils # (Auto) 3.0 Thou/mm3 (1.8-7.7); Neutrophils % (Auto) 40 % (37-80); Nucleated Red Blood Cell # 0.00 Thou/mm3 (0.00-0.00); Nucleated Red Blood Cell % 0 /100 WBC (0); Platelet Count 89 Thou/mm3 (140-440); RDW Standard Deviation 51.1 fL (35.1-43.9); Red Blood Count 3.36 Miln/mm3 (4.50-5.90); White Blood Count 7.5 Thou/mm3 (3.8-10.6)
[2025-05-12 06:18] LABS: Alanine Aminotransferase 21 U/L (10-49); Albumin, Serum 3.9 gm/dL (3.4-4.8); Albumin/Globulin Ratio 1.5 (1.2-2.2); Alkaline Phosphatase 89 U/L (46-116); Anion Gap 13 (7-16); Aspartate Amino Transferase 18 U/L (0-34); BUN/Creatinine Ratio 23 Ratio (12-20); Bilirubin,Total 0.8 mg/dL (0.3-1.2); Blood Urea Nitrogen 66 mg/dL (9-23); Calcium 10.1 mg/dL (8.3-10.6); Calcium (Corrected) 10.2 mg/dL (8.5-10.1); Carbon Dioxide 21.8 mMol/L (20.0-31.0); Chloride 108 mMol/L (98-107); Creatinine (Component) 2.9 mg/dL (0.6-1.3); Estimated Creatinine Clearance 36.9 mL/min (>60); Globulin 2.6 gm/dL (2.3-3.5); Glucose 103 mg/dL (74-106); Magnesium 1.8 mg/dL (1.6-2.6); Osmolality,Calculated 303 (275-295); Phosphorous 5.2 mg/dL (2.4-5.1); Potassium 5.1 mMol/L (3.4-5.1); Sodium 143 mMol/L (136-145); Total Protein 6.5 gm/dL (5.7-8.2); eGFR 22 See Note
[2025-05-12] MEDS: cefTRIAXone/D5w 1gm IV premix 1 GM/50 ML BAG IV (08:10)
[2025-05-12] MEDS: PATIROMER CALCIUM 8.4 GM PACKET PO (08:10)
[2025-05-12] MEDS: NIFEdipine XL 30 MG TABCR 60 MG PO (08:11)
[2025-05-12] MEDS: CITRIC ACID/SODIUM CITR 15 ML UDC (BICITRA) 30 ML PO (08:11)
[2025-05-12] MEDS: DOXYCYCLINE 100 MG TABLET PO (08:12)
[2025-05-12] MEDS: FERROUS SULF 325 MG TABLET PO (08:12)
[2025-05-12] MEDS: AMIODARONE HCL 200 MG TABLET PO (08:13)
[2025-05-12] MEDS: SEVELAMER CARBONATE 800 MG TABLET 1600 MG PO ×2 (08:13→12:41)
[2025-05-12] MEDS: FUROSEMIDE INJ 10 MG/ML VIAL 2 ML 20 MG IVP (08:14)
[2025-05-12] MEDS: CLOTRIMAZOLE CR 1% 30 GM TUBE TOP (08:15)
[2025-05-12] MEDS: VIT B12/Vit C/FA (Nephrovite) TABLET 1 TAB PO (08:31)
[2025-05-12] MEDS: APIXABAN 2.5 MG TABLET PO (08:31)
[2025-05-12] MEDS: BALSAM PERU/CASTOR OIL (Venelex) 60 GM TUBE TOP (08:32)
[2025-05-12] MEDS: POLYETHYLENE GLYCOL 17 GM PACKET PO (08:40)
--- NOTE | 2025-05-12 08:42 | PD.RESPRO ---
Documentation for date of: 05/12/25 Subjective Subjective Interval history: Mr. Amezcua is a 69-year-old male with history of Heart failure preserved ejection fraction, A-fib, CAD status post CABG in 2018, DVT left lower extremity, ischemic colitis status post colostomy at [facility], insulin-dependent diabetes on 50 units presented to the ED around 1 PM with hypoglycemia and hypothermia. Per patient's and patient, patient was following his normal routine of waking up at 10 AM and went to the restroom. After sitting on his commode, patient was unable to get off the commode. At 10:10 AM patient's found him looking spacey and lethargic. She also noticed that he was ice cold to touch. She took a blood sugar which was 89 and after a glass of juice repeat blood glucose was 5910 minutes later. She decided to call the ambulance at 11 AM to bring him to the hospital. Patient states that he only felt wobbly, mild cough and weak the day prior however denies any other symptoms of nausea, vomiting, headache, body aches, fevers, chills, or recent travel. ED course: Significant vitals on arrival: Blood pressure 162/70, heart rate of 38, temperature of 88 ?F; significant labs for low glucose of 40, elevated BUN at 65, bicarb 19.3, creatinine 2.9, elevated LFTs Imaging: Chest x-ray showed early pneumonia left base, EKG showed bradycardia rate of [address] segment changes In the ED: Terry fernandez, Patient received dextrose, albuterol 15 mg, calcium chloride 10 mg, 50 mill EQ of sodium bicarb, 8 units of insulin, 2 g ceftriaxone, sodium polystyrene sulfonate 15 GM p.o. x 1 Patient was initially admitted to telemetry for further management of patient's hypothermia and hypoglycemia however despite being on D10 at 50 mL/hr dropped from 1 25-78 despite eating 2 puddings. At this time, patient will be upgraded to ICU for further close monitoring for patient's hypothermia and hypoglycemia. Nephrology consulted for hyperkalemia in setting of JULIAN, as well as NAGMA. 05/06/25: Patient seen and assessed at bedside. No complaints. AOx3 on exam. Potassium 7.3 this AM, worsened since admission despite hyperkalemia cocktail. Slowly improving with additional Kayexalate and paritomer. Chloride elevated at 116, BUN 54, Cr 3.2 (baseline 2.3-2.6 in 2023). Anion gap 10. Will continue pharmacological management for hyperkalemia, however if fails to improve, patient will likely need dialysis tomorrow. 05/07/25: Patient was seen and assessed at bedside on telemetry. Feeling better and more conversational. Potassium improved to 4.7 s/p additional Kayexelate and parotimer. BUN 75, Cr stable at 3.4. GFR 19. Phosphorus 6.0, continue sevelemer 800 mg TID. Bicarb improved s/p bicarb amp. 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 Follow up PTH. Per chart review, patient was previously on cinacalcet 60 mg for hyperparathyroidism but patient does not recall if he has been taking it. Will likely need to restart. Follow up AM cortisol tomorrow. No need for dialysis at this time as GFR is still above 15 but will continue to monitor renal panel closely. 05/08/2025 patient currently seen in telemetry. Resting comfortably. Potassium tad elevated at 5.2. Changed him to renal diet. Labs and medications have been reviewed. Sodium 145, potassium 5.2, chloride 113, bicarbonate 22.6, BUN 70, creatinine 3.3, GFR 19, phosphorus 5.8, calcium 9.4, LFTs normal 05/09/25: Patient seen and assessed in telemetry. Potassium improved to 5.0 (from 5.2). Pending AM cortisol, however low suspicion for adrenal insufficiency given elevated BP this AM. Sodium 145, potassium 5.0, chloride 110, BUN 68, creatinine 3.1, GFR 21, phosphorus 5.2, calcium 9.5. No need to restart cinacalcet as PTH only mildly elevated at 119. Patient is medically stable for discharge from nephrology standpoint, recommend discharge with veltessa 8g daily and bicitra. Will follow up in clinic in 1 week after discharge with renal panel, will follow up AM cortisol level at that time. 05/10/25: Patient seen and assessed in telemetry. UOP 3.7L. Temp 94.3 overnight, 95.1F rectal. Improved on Terry hugger. Started hydralazine 10 TID and increased nifedipine to 60 daily, systolics improved to 130s. Potassium 4.9, BUN 66, creatinine 2.8, GFR 23, phosphorus 5.2, magnesium 1.4, repleted. No need for dialysis. Pending AM cortisol. 05/11/25: Patient seen and assessed in telemetry. UOP 2.9 L overnight. No episodes of hypothermia. BUN 64, creatinine 3.0 (from 2.8), GFR 22 overall relatively stable. Magnesium 1.7, repleted. Calcium 10.2, hold Lasix for today. Phosphorus 5.7, increase sevelamer 800 mg TID to 2 tablets with meals. Patient is still stable for discharge from nephrology standpoint, discharged on oral Lasix 20 mg daily. Instructed patient to follow-up in clinic 1 week after discharge with renal panel. 05/12/25: Patient seen and assessed in telemetry. UOP 1.7 cc overnight. Systolic BP 150 this AM, recommend increasing hydralazine 25mg TID. Renal function stable. Renal US negative for SILVANA. Calcium 10.2, phosphorus 5.2, magnesium 1.8, repleted. Continue Lasix and sevelamer 1600 TID. Pending discharge to SNF. Exam Vital Signs Temp Pulse Resp BP Pulse Ox O2 Del Method 96.9 F 67 20 153/57 H 99 Room Air 05/12/25 00:00 05/12/25 08:14 05/12/25 04:43 05/12/25 08:14 05/12/25 04:43 05/12/25 00:00 Narrative Exam Physical Exam General: Awake and in no acute distress. Conversational and non-toxic appearing. HEENT: Normocephalic, atraumatic, mucous membranes moist. Heart: Regular rate and rhythm, normal S1 and S2, no murmurs appreciated. Lungs: Clear to auscultation with no wheezing or crackles. Abdomen: Soft, nondistended, nontender, positive bowel sounds. Colostomy bag in place. No guarding or rebound tenderness. Neurologic: Alert and oriented x3, no gross neurological deficit, and patient able to move all 4 extremities. Extremities: 1+ pitting edema in lower extremities. Amputated right big and second toes. Skin: Erythematous, warm patch on left brady, improving. No ecchymoses. Objective Labs 05/12/25 04:20 05/12/25 04:20 Labs: Laboratory Results - last 24 hr 05/12/25 04:20 WBC 7.5 RBC 3.36 L Hgb 10.2 L Hct 32.1 L MCV 96 MCH 30.4 MCHC 31.8 RDW Std Deviation 51.1 H Plt Count 89 L Neut % (Auto) 40 Lymph % (Auto) 40 [place] % (Auto) 12 Eos % (Auto) 6 Baso % (Auto) 1 Neut # (Auto) 3.0 Lymph # (Auto) 3.0 [place] # (Auto) 0.9 H Eos # (Auto) 0.4 Baso # (Auto) 0.1 Immature Gran # (Auto) 0.13 H Absolute Nucleated RBC 0.00 Immature Gran % 2 H Nucleated RBC % 0 Sodium 143 Potassium 5.1 Chloride 108 H Carbon Dioxide 21.8 Anion Gap 13 BUN 66 H Creatinine 2.9 H Estim Creat Clear Calc 36.9 L eGFR 22 L BUN/Creatinine Ratio 23 H Glucose 103 Calculated Osmolality 303 H Calcium 10.1 Corrected Calcium 10.2 H Phosphorus 5.2 H Magnesium 1.8 Total Bilirubin 0.8 AST 18 ALT 21 Alkaline Phosphatase 89 Total Protein 6.5 Albumin 3.9 Globulin 2.6 Albumin/Globulin Ratio 1.5 ABG Interpretation ABG results: 05/05/25 20:37 VBG pH 7.35 VBG pCO2 35 L VBG pO2 112 H VBG Base Excess -6 L Quality Measures Quality Measures none Advance care planning discussed with:: patient Assessment & Plan Assessment Current Active Medications: Generic Name Dose Route Start Last Admin Trade Name Eran PRN Reason Stop Dose Admin Acetaminophen 650 mg 05/05/25 19:24 Acetaminophen 325 Mg Tablet PO 06/04/25 19:23 Q6H PRN Fever >101.5 Amiodarone HCl 200 mg 05/06/25 09:00 05/12/25 08:13 Amiodarone Hcl 200 Mg Tablet PO 06/05/25 08:59 200 mg DAILY CINDI Administration Apixaban 2.5 mg 05/07/25 09:00 05/12/25 08:31 Apixaban 2.5 Mg Tablet PO 06/06/25 08:59 2.5 mg BID CINDI Administration Atorvastatin Calcium 10 mg 05/06/25 21:00 05/11/25 21:58 Atorvastatin Calcium 10 Mg Tablet PO 06/05/25 20:59 10 mg HS CINDI Administration Balsam [place] Oil 0 gm 05/06/25 10:00 05/12/25 08:32 Balsam [place] Oil (Venelex) 60 Gm Tube TOP 06/05/25 09:59 1 applicatio BID CINDI Administration Calcitriol 0.5 mcg 05/06/25 09:00 05/12/25 08:12 Calcitriol 0.25 Mcg Capsule PO 06/05/25 08:59 0.5 mcg QDAY CINDI Administration Citric Acid/Sodium Citrate 30 ml 05/10/25 21:00 05/12/25 08:11 Citric Acid/Sodium Citr 15 Ml Udc (Bicitra) PO 06/09/25 20:59 30 ml BID CINDI Administration Clotrimazole 0 gm 05/06/25 10:00 05/12/25 08:15 Clotrimazole Cr 1% 30 Gm Tube TOP 06/05/25 09:59 1 appl BID CINDI Administration Dextrose 25 ml 05/06/25 16:08 Dextrose 50%-Water Inj 50 Ml Syringe IV 06/05/25 16:07 Q15MIN PRN BG 50-70 responsive npo pt Dextrose 50 ml 05/06/25 16:08 Dextrose 50%-Water Inj 50 Ml Syringe IV 06/05/25 16:07 Q15MIN PRN BG <50 OR BG <70 & pt unresponsive Doxycycline Hyclate 100 mg 05/09/25 21:00 05/12/25 08:12 Doxycycline 100 Mg Tablet PO 05/16/25 20:59 100 mg BID CINDI Administration Ferrous Sulfate 325 mg 05/06/25 09:00 05/12/25 08:12 Ferrous Sulf 325 Mg Tablet PO 06/05/25 08:59 325 mg QDAY CINDI Administration Furosemide 20 mg 05/08/25 15:15 05/12/25 08:14 Furosemide Inj 10 Mg/Ml Vial 2 Ml IVP 06/07/25 15:14 20 mg QDAY CINDI Administration Glucagon 1 mg 05/06/25 16:08 Glucagon Inj 1 Mg Vial IM Q15MIN PRN BG <70, and no IV access Hydralazine HCl 10 mg 05/09/25 22:00 05/12/25 06:00 Hydralazine Hcl 10 Mg Tablet PO 06/08/25 21:59 10 mg TID CINDI Administration Ceftriaxone Sodium/Dextrose 1 gm in 50 mls @ 100 mls/hr 05/06/25 09:35 05/12/25 08:10 Rocephin/D5w 1gm Iv Premix IV 05/13/25 09:34 100 mls/hr QDAY CINDI Administration Insulin Human Lispro 0 unit 05/09/25 08:15 05/12/25 07:57 Insulin Lispro (Admelog) 1 Unit/0.01 Ml Unit SC 06/08/25 08:14 Not Given AC CINDI Protocol Nifedipine 60 mg 05/11/25 09:00 05/12/25 08:11 Nifedipine Xl 30 Mg Tabcr PO 06/10/25 08:59 60 mg BID CINDI Administration Patiromer 8.4 gm 05/10/25 09:00 05/12/25 08:10 Patiromer Calcium 8.4 Gm Packet PO 06/09/25 08:59 8.4 gm 2 X WEEKLY CINDI Administration Sevelamer Carbonate 1,600 mg 05/11/25 12:00 05/12/25 08:13 Sevelamer Carbonate 800 Mg Tablet PO 06/05/25 11:59 1,600 mg TIDWM CINDI Administration Sodium Chloride 3 ml 05/06/25 16:51 Sodium Chloride Rt Apryl 0.9% 3 Ml Nebu INH 06/05/25 16:50 PRN PRN SOLN Vitamin B Complex/Vit C/Folic Acid 1 tab 05/06/25 09:00 05/12/25 08:31 Vit B12/Vit C/Fa (Nephrovite) Tablet PO 06/05/25 08:59 1 tab QDAY CINDI Administration Plan Patient is a 69-year-old male with history of HFpEF, A-fib, CAD status post CABG in 2018, DVT left lower extremity, ischemic colitis status post colostomy at [facility], insulin-dependent diabetes on 50 units presented to the ED around 1 PM with hypoglycemia and hypothermia, admitted to telemetry for further management. Was upgraded to ICU for further close monitoring for patient's hypothermia and hypoglycemia but downgraded back to telemetry due to resolution of hypothermia. Nephrology consulted for JULIAN, hyperkalemia, and acidosis. 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 - Creatinine stabilized. - EKG shows sinus rhythm with first degree AV block, no peak T waves observed - Not quite sure on his hypothermia although his temperature seems to be better now. - Question adrenal insufficiency although should have hyponatremia. Lower suspicion now that patient is hypertensive. - High urine anion gap 57.2, likely type 4 RTA Plan: - Encourage oral hydration - Continue Lasix 20 mg daily - Avoid nephrotoxic agents - Renally dose medications - Hold spiranolactone and potassium - Avoid medications that may exacerbate hyperkalemia - No need for dialysis - Follow up cortisol 05/08 #NAGMA 2/2 RTA type IV - Anion gap of 11, bicarbonate 19.3, pCO2 19 - Chloride 117 --> 114, likely hyperchloremic metabolic acidosis - Winter's Formula 34-38, appropriately compensated - High urine anion gap 57.2, possibly type 4 RTA iso hyperkalemia Plan: - Bicitra 30 mg BID - Hold spiranolactone and potassium - Avoid medications that may exacerbate hyperkalemia #Hyperphosphatemia - Phosphorus 6.6 on admission, continues to be elevated. - Per chart review, levels were also intermittently elevated in the past but baseline appears to be within normal range. - Likely iso worsening JULIAN on CKD Plan: - Sevelemer 1600 mg TID #Hx hyperparathyroidism #Hypercalcemia, mild - PTH elevated 140s-200s since 2018 - Calcium 9.6, within normal limits but previously low in November 2023 (7.7-8.1) - Parathyroid nuclear scan 02/17/2023 showed subtle increased isotope accumulation over right thyroid region - Soft tissue US 02/19/23 showed two vascular right thyroid nodules (upper 18 x 16 mm, lower 3.5 x 3.6 mm) but no parathyroid adenoma. FNA recommended at the time, unclear if this was completed. - Was on cinacalcet 60 mg but does not recall if he is still taking it - PTH 119 - Suspect secondary iso CKD Plan: - No need to restart cinacalcet - Follow up outpatient with renal panel in 1 week #Hypothermia #History of Heart failure with preserved ejection fraction (HFpEF) #CAD s/p CABG 2018 #A-fib #DVT #Bradycardia- resolved #HLD #S/p colostomy from ischemic colitis-stable #Severe recurrent hypoglycemia, better #Cellulitis #History of DVT #Generalized weakness - Defer to primary team for management Thank you for your consultation, please do not hesitate to reach out if you have any question or concern Patient plan of care was discussed with the attending physician, Dr. Vines. Tatyana Stein DO, PGY-1 Attending Provider Attestation/Addendum Patient seen and examined with resident physician Dr. Stein. Note reviewed, agree with findings and recommendations.
--- NOTE | 2025-05-12 13:10 | PC.SS ---
Transport scheduled for 4:00 pm today. SCALEHOUSE ATTENDANT notified patient, SNF and bedside nurse.
--- NOTE | 2025-05-12 13:55 | ESDS_ITS ---
<Statement entered by Sreekanth Blair MD - 05/12/25 15:40> Patient was examined and case was reviewed with team including attending physician. Note reviewed, I agree with most of its contents and agree with the patient's care as documented by Dr. Luis Blair MD PGY-2 Planned Discharge Date 05/11/25 DS: Providers Provider Date of admission: 05/05/25 20:23 Primary care physician: Sandra Vines MD Admitting Provider: Geovanna Fishman MD Attending Provider on Admission: Jeniffer Ta MD Consults: 05/06/25 06:53 Referral Wound Care Urgent Comment: 05/06/25 09:53 Referral Nutritional Services Routine Comment: Wounds 05/06/25 12:34 Consult to Nephrology Routine Comment: Consulting Provider: Sandra Vines 05/06/25 16:08 Referral Registered Dietitian Routine Comment: Hypoglycemia 05/07/25 10:33 Referral Physical Therapy Stat Comment: Physician Instructions: 05/07/25 11:10 Referral Discharge Planning Routine Comment: HHC vs rehab Attending Provider on DC: Sotero Perez MD Discharging Provider: Christiano Smith DO Anticipated date of discharge: 05/12/25 DS: Diagnosis Problem List Completed Was Problem List Reviewed/Reconciled?: Yes Hospital Course Hospital Course Hospital course: Patient was planned for discharge yesterday 05/11/25, however, stayed overnight due to SNF placement. Patient was accepted today at SNF, plan for departure this afternoon. Mr. Amezcua is a 69-year-old male with history of Heart failure preserved ejection fraction, A-fib, CAD status post CABG in 2018, DVT left lower extremity, ischemic colitis status post colostomy at [facility], insulin-dependent diabetes on 50 units presented initially to the ED around 1 PM on 05/05/25 with hypoglycemia and hypothermia. Patient appeared lethargic and was ice cold to touch per patient's prior to arrival. Patient was found to have a temperature of 88 ?F in the ED. Initial lab significant for Glucose of 40, potassium 6.8, chloride 117, bicarb 19.3, BUN 65, creatinine 2.9, osmolality 306, AST 51, ALT 53. Terry hugger was applied, and patient received dextrose, albuterol 15 mg, calcium chloride 10 mg, 50 mill EQ of sodium bicarb, 8 units of insulin, 2 g ceftriaxone, sodium polystyrene sulfonate 15 GM p.o. Patient was upgraded to ICU for close monitoring for patient's hypothermia and hypoglycemia. Over the course of the first few days of hospital stay, patient's potassium slowly improved with additional Kayexalate and paritomer. Nephrology was consulted for hyperkalemia and high urine anion gap, possibly RTA type 4 given hyperkalemia. There was no plan to initiate dialysis as GFR was still above 15. A cortisol level was drawn due to concern of adrenal sufficieny, however, unlikely given normal blood pressure and sodium level. Of note, patient had previous findings of increased parathyroid nuclear scan isotope uptake as well as nodular parathyroid adenoma on ultrasound for which FNA was recommended but was not done. It was recommended to patient to follow up outpatient with renal panel in 1 week for further management. On day of discharge, patient was normothermic overnight without Terry hugger, and is medically stable for discharge from nephrology standpoint. It was recommended patient to be discharged with veltessa 8g daily, bicitra, and oral Lasix 20mg daily. Patient was advised to follow up in clinic in 1 week after discharge with renal panel. At this time, patient is medically and physically stable for discharge to SNF. All questions and concerns addressed, plan of care discussed with patient, return precautions given. 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 Please return to the ED immediately or call 911 for: severe headache, confusion, repeated vomiting, seizures, unusual sleepiness, vision problems, or weakness.? New Medications: You've been prescribed MUPIROCIN nasal oinment for MRSA decolonization. Apply MUPIROCIN topically twice daily in each nostril for 5 days. You have been prescribed 6 more days of doxycyclin please take this medication twice a day for 6 more days Stop taking AMLODIPINE You have been started on Nifedipine 60mg twice a day, and HYDRALYZINE 10 mg three time a day, please take as prescribed for BP contol. Your Sevelamer was adjusted to 2 tablets with meals Continue taking BICITRA 30 mL twice daily. Continue to take the rest of your medications as prescribed by your primary care physician. Patient has been explained that should any symptoms recur or worsen patient is instructed to return to the Emergency Department. Case discussed with my senior resident Dr. Krueger Case discussed with my attending Dr. Ana Smith, PGY 1 Status at Discharge Overall status at discharge: patient is back to baseline Time Spent with Patient Time attestation: Total time spent providing and/or coordinating discharge services: 35 minutes Time spent: Greater than 30 minutes Exam Vital Signs Temp Pulse Resp BP Pulse Ox O2 Del Method 97.1 F 65 17 119/75 96 Room Air 05/12/25 12:00 05/12/25 13:14 05/12/25 12:00 05/12/25 13:14 05/12/25 12:00 05/12/25 12:00 Narrative Exam General: Awake and in no acute distress. Conversational. A/O x 3. HEENT: Normocephalic, atraumatic. Heart: Regular rate and rhythm Lungs: Clear to auscultation with no wheezing or crackles. Abdomen: Soft, nondistended, nontender. Colostomy bag in place. No guarding or rebound tenderness. Neurologic: Alert and oriented x3, no gross neurological deficit, and patient able to move all 4 extremities. Extremities: 1+ pitting edema in lower extremities. Amputated right big and second toes. Skin: Erythematous, non-painful, non-tender, patch on left brady. No ecchymoses. Discharge Plan Plan Patient Disposition: Xfer Skilled Nsg Fac (SNF) Patient condition on transfer: Stable Care Plan Goals: Instructions have been explained to the patient with regards to their medications and how to take them. Patient was able to explain back to physician and nursing staff how to take their medications. Patient expressed understanding with instructions. New Medications: You've been prescribed MUPIROCIN nasal oinment for MRSA decolonization. Apply MUPIROCIN topically twice daily in each nostril for 5 days. You have been prescribed 7 more days of doxycyclin please take this medication twice a day for 7 more days Stop taking AMLODIPINE You have been started on Nifedipine 60mg twice a day, and HYDRALYZINE 10 mg three time a day, please take as prescribed for BP contol. Your Sevelamer was adjusted to 2 tablets with meals Continue taking BICITRA 30 mL twice daily. Continue to take the rest of your medications as prescribed by your primary care physician. Patient has been explained that should any symptoms recur or worsen patient is instructed to return to the Emergency Department. Wound care: Stage 2 with blanchable redness over sacrum/coccyx extending to buttocks and posterior thighs: Cleanse sacrum with wound cleanser, pat dry, apply Venelex to wound bed. Skin prep to wound edges and secure with allyven dressing BID/PRN for soiling or falling off. Prevention of IASD/MASD to [place]anique area, abdominal and groin folds: floor stock antifungal cream BID/PRN Fungal infection to left and right feet including toe webs: cleanse with wound cleanser, pat dry, apply lotrimin cream BID/PRN Prescriptions/Referrals Prescriptions/Med Rec: New mupirocin [Centany] 2 % ointment 1 applic topical BID Qty: 15 0RF Veltassa 8.4 gram powder in packet 8.4 g PO QDAY Qty: 30 0RF nifedipine 60 mg tablet extended release 60 mg PO BID Qty: 60 0RF hydralazine 10 mg tablet 10 mg PO TID Qty: 90 0RF sodium citrate-citric acid 500-334 mg/5 mL solution 30 ml PO BID Qty: 3000 0RF doxycycline hyclate 100 mg capsule 100 mg PO BID 7 Days Qty: 14 0RF Continued fexofenadine [Tonia Allergy] 180 MG tablet 180 mg PO QPM Qty: 0 Tradjenta 5 MG tablet 5 mg PO QPM Qty: 0 coenzyme Q10 [CoQ-10] 100 mg Capsule 100 mg PO QPM febuxostat [Uloric] 40 mg Tablet 40 mg PO QPM Xultophy 100/3.6 100 unit-3.6 mg /mL (3 mL) Insulin Pen 50 unit SUBCUT QDAY hydroxyzine HCl 25 mg Tablet 25 mg PO BID Qty: 1 0RF amiodarone 200 mg tablet 200 mg PO DAILY Patient Comments: TAKE 1 TABLET BY MOUTH EVERY DAY ferrous sulfate 325 mg (65 mg iron) tablet 325 mg PO DAILY Patient Comments: TAKE 1 TABLET BY MOUTH EVERY DAY cyclobenzaprine 5 mg Tablet 5 mg PO QPM Eliquis 2.5 mg Tablet 5 mg PO BID Qty: 60 0RF sacubitril-valsartan [Entresto] 24-26 mg Tablet 1 tab PO BID Qty: 60 0RF Nephro-Yola 0.8 mg Tablet 1 tab PO QDAY Qty: 30 0RF rosuvastatin 5 mg Tablet 5 mg PO QPM Qty: 30 0RF allopurinol 100 mg tablet 100 mg PO QDAY Patient Comments: TAKE 1 TABLET BY MOUTH EVERY DAY FOR GOUT furosemide 20 mg tablet 20 mg PO QDAY Patient Comments: TAKE 1 TABLET BY MOUTH EVERY DAY nebivolol 10 mg tablet 10 mg PO QDAY Patient Comments: TAKE 1 TABLET BY MOUTH EVERY DAY cinacalcet 60 mg tablet 60 mg PO QDAY Patient Comments: TAKE 1 TABLET BY MOUTH EVERY DAY NOT ON DIALYSIS Rx Instructions: NOT ON DIALYSIS calcitriol 0.25 mcg Capsule 0.25 mcg PO BID cyclobenzaprine 5 mg tablet 10 mg PO HS Changed sevelamer carbonate 800 mg Tablet 1,600 mg PO TIDWM Qty: 1 0RF Discontinued amlodipine 5 mg tablet 5 mg PO QDAY Qty: 30 0RF amoxicillin-pot clavulanate 500-125 mg tablet 1 tab PO BID Patient Comments: TAKE 1 TABLET ORALLY TWICE DAILY FOR 7 DAYS. Referrals: Sandra Vines MD [Primary Care Provider, Nephrology] Patient/Caregiver Discharge Instructions Education Materials: Hypoglycemia (Low Blood Sugar), ED Hypothermia Treatment, ED Hypothermia Prevention Print Language: Amharic Stand Alone Forms: [employer] Award Info., Patient Portal Info Letter Discharge Order Discharge Orders: Discharge (Routine); Ordered 05/12/25 Ordered By: Angela Villagomez Quality Discharge Quality Measures none MD Attestestation MD Attestation I have seen and examined the patient. I was physically present for the grier portions of the services provided including history, physical exam, diagnosis, treatment plans and orders. I agree with assessment and plan of care as documented by residents. Even though this this note was carefully revised there may still be minor errors in open hearth worker due to voice recognition software. Sotero Perez MD
[2025-05-16 06:49] LABS: Cortisol,total,LC/MS/MS* 8.8 mcg/dL
== END 2025-05-12 16:35 | disposition skilled nursing facility (03) | DRG 637 ==
LOC: SERX 17:40 → SERHOLD 20:24 → S2SX 05-06 06:06 → S2NX 05-06 18:33
PROVIDERS: Emergency Medicine; Student in an Organized Health Care Education/Training Program; Admitting Provider Student in an Organized Health Care Education/Training Program; Emergency Provider Family Medicine; PCP Internal Medicine; Visit Provider Internal Medicine
DX: E11.649 Type 2 diabetes mellitus with hypoglycemia without coma (principal); G93.41 Metabolic encephalopathy; J18.9 Pneumonia, unspecified organism; I13.0 Hypertensive heart and chronic kidney disease with heart failure and stage 1 through stage 4 chronic kidney disease, or unspecified chronic kidney disease; I50.32 Chronic diastolic (congestive) heart failure; E87.1 Hypo-osmolality and hyponatremia; L03.116 Cellulitis of left lower limb; E87.29 Other acidosis; E87.5 Hyperkalemia; I25.10 Atherosclerotic heart disease of native coronary artery without angina pectoris; Z95.1 Presence of aortocoronary bypass graft; D63.1 Anemia in chronic kidney disease; E11.22 Type 2 diabetes mellitus with diabetic chronic kidney disease; E78.5 Hyperlipidemia, unspecified; E83.39 Other disorders of phosphorus metabolism; E83.52 Hypercalcemia; I48.0 Paroxysmal atrial fibrillation; I44.0 Atrioventricular block, first degree; N18.4 Chronic kidney disease, stage 4 (severe); N25.81 Secondary hyperparathyroidism of renal origin; W19.XXXA Unspecified fall, initial encounter; Z79.01 Long term (current) use of anticoagulants; E87.8 Other disorders of electrolyte and fluid balance, not elsewhere classified; Z79.4 Long term (current) use of insulin; E86.1 Hypovolemia; Z79.84 Long term (current) use of oral hypoglycemic drugs; Z79.899 Other long term (current) drug therapy; Z86.718 Personal history of other venous thrombosis and embolism; N25.89 Other disorders resulting from impaired renal tubular function; Z93.1 Gastrostomy status; Z93.3 Colostomy status; Z88.5 Allergy status to narcotic agent
CPT/HCPCS: 36415; 51702; 71045; 80053; 80061; 80069; 81001; 82436; 82533; 82803; 83605; 83735; 83970; 84100; 84132; 84133; 84145; 84300; 84439; 84443; 84484; 85025; 85610; 87040; 87081; 87205; 87811; 89220; 93005; 93975; 94640; 94644; 94664; 96365; 96375; 97162; 99285; A4314; A9270; J0360; J0613; J0696; J1644; J1720; J1815; J1938; J3475; J3490; J7050; J7060; J7070; J7611; Q0138; Q5106